=== PATIENT | male | born 1930 | race Caucasian/White ===

== ENCOUNTER 2016-06-10 03:43 | Inpatient (IN) ==
--- NOTE | 2016-06-10 04:16 | Emergency Department Note ---
Disposition Clinical Impression: Atrial fibrillation with RVR, Hypokalemia, Elevated troponin, Pleural effusion , right Acute exacerbation of CHF (congestive heart failure) Qualifiers: Congestive heart failure type: unspecified congestive heart failure type Qualified Code(s): I50.9 - Heart failure, unspecified Disposition: Admitted As Inpatient Condition: Serious Referrals: Unassigned,Provider [Non-Partnered Physician] - Forms: ED Satisfaction Letter Time of Disposition: 05:48 SOB HPI - General Chief Complaint: ED Shortness of Breath/Dyspnea Stated Complaint: LILY Time Seen by Provider: 06/10/16 04:10 Source: patient Limitations: no limitations Nursing Notes Reviewed: Yes Vital Signs Reviewed: Yes - History of Present Illness 85-year-old male with generalized weakness, intermittent chest pain, is now chest pain-free, also has having palpitations, states he does not know if he has had A. fib, per his he may have had A. fib a few years ago and was nonproductive but stopped this due to GI bleeding. Patient denies any current GI bleeds. States that he has felt his heart rate going fast and comes to patient denies abdominal pain, nausea vomiting diarrhea constipation hematuria dysuria. ED essentially complaining of rise weakness Pt Subjective Complaint: shortness of breath Onset (ago): hour(s) Severity: none Improves with: nothing Worsens with: nothing Known history of: congestive heart failure Treatment prior to arrival: none - Related Data Home Medications Medication Instructions Recorded Confirmed Diltiazem HCl [Diltiazem ER] 240 mg PO DAILY 06/10/16 06/10/16 Donepezil [Aricept] 5 mg PO HS 06/10/16 06/10/16 Furosemide [Lasix] 20 mg PO DAILY 06/10/16 06/10/16 Lisinopril [Zestril] 10 mg PO DAILY 06/10/16 06/10/16 Metoprolol [Lopressor] 25 mg PO BID 06/10/16 06/10/16 Omeprazole 20 mg PO BID 06/10/16 06/10/16 Potassium Chloride [K-Tab ER] 20 meq PO DAILY 06/10/16 06/10/16 Allergies Allergy/AdvReac Type Severity Reaction Status Date / Time No Known Allergies Allergy Verified 06/10/16 04:59 Review of Systems: All systems were reviewed with historian and negative except as per below, or as documented in the HPI. Constitutional: Denies: fever, chills, weight changes Eyes: Denies: vision changes, eye pain ENT: Denies: nasal congestion, sore throat CV: Positive for palpitations Denies: chest pain Resp: +cough, dyspnea Denies: cough, dyspnea, wheezes, hemoptysis GI: Denies: abdominal pain, N/V/D/C [place] heme hematochezia, denies melena Neuro: Denies: [place], weakness, sensory changes, gait difficulty Psych: Denies: anxiety, depression All systems ED: reviewed and negative except as stated. Past Medical History - Past Medical History Attestation: Yes The following information was validated with the patient. Source: patient Medical history: Reports: dementia, hyperlipidemia, hypertension - Social History Smoking Status: Former smoker Smokeless Tobacco Status: No Alcohol use: Reports: rarely Drug use: Reports: none Physical Exam Constitutional: Alert female appears mildly in respiratory distress, vital signs tachycardic irregular. HEENT: NCAT, sclera anicteric, PERRLA bilaterally, normal external ears bilaterally, nasal septum nondeviated, average dentition, MMM Neck: normal inspection, neck is supple, trachea midline Resp: Diminished breath sounds bilaterally CV: Irregular rate and rhythm GI: normal inspection, Soft, NTND, BS present Back: normal inspection, no tenderness to palpation Skin: No rashes, skin warm, dry, intact - General Limitations: no limitations General appearance: alert, in no apparent distress Course Course Narrative: Atrial male with what appears to be new onset paroxysmal atrial fibrillation, unclear if there is previous history however given previous EKGs this is likely , patient is not anticoagulated except for on aspirin, we will check lab work, start with IV Lopressor and then 1 L of fluid, reassess patient. - Reevaluation(s) Reevaluation #1: Hospitalist paged Reevaluation #2: Mateusz is the hospitalist who accepted the patient, elevated troponin, hypokalemia replaced, likely demand ischemia secondary to rate, his rates somewhat stable around 90-100 red now will not do an hold diltiazem Time: 06:56 Vital Signs Temperature 99.0 F 06/10/16 03:46 Pulse Rate 113 06/10/16 03:46 Respiratory Rate 22 06/10/16 03:46 Blood Pressure 170/75 06/10/16 03:46 O2 Sat by Pulse Oximetry 93 L 06/10/16 03:46 Temperature 99.0 F 06/10/16 03:46 Pulse Rate 108 06/10/16 06:18 Respiratory Rate 20 06/10/16 06:18 Blood Pressure 146/76 06/10/16 06:18 O2 Sat by Pulse Oximetry 93 L 06/10/16 06:18 Oxygen Delivery Oxygen Delivery Nasal Cannula Shortness of Breath/Dyspnea - [facility] Narrative Medical decision making narrative: 85 male with anemia, hypokalemia, atrial fibrillation, elevated troponin, pleural effusion, admitted for the above complaints, to Dr. Child service - Differential Diagnosis Likely: acute exacerbation of chronic obstructive airways disease, congestive heart failure, pneumonia, pulmonary embolism - Medical Records Medical records reviewed: Yes I reviewed the patient's medical records. - Lab Data Lab results reviewed: Yes I reviewed the patient's lab results. Result diagrams: 06/10/16 04:51 06/10/16 04:51 Lab Results 06/10/16 06/10/16 06/10/16 Range/Units 04:51 04:51 04:51 WBC 8.2 (4.3-11.1) K/mcL RBC 2.50 L (4.19-5.50) M/mcL Hgb 7.9 L (12.9-16.9) g/dL Hct 24.5 L (37.5-50.1) % MCV 98.0 (83.0-100.0) fL MCH 31.6 (28.0-33.3) pg MCHC 32.2 (31.6-35.5) g/dL RDW 14.8 H (11.5-14.5) % Plt Count 145 (140-400) K/mcL MPV 9.9 (9.4-12.4) fL Immature Gran % 0.4 (0-4) % Seg Neutrophils % 86.5 % Lymphocytes % 6.6 % Monocytes % 6.3 % Eosinophils % 0.0 % Basophils % 0.2 % Neutrophils # 7.1 (1.6-8.9) K/mcL Lymphocytes # 0.5 L (0.6-4.6) K/mcL Monocytes # 0.5 (0.0-1.3) K/mcL Eosinophils # 0.0 (0.0-0.6) K/mcL Basophils # 0.0 (0.0-0.2) K/mcL Immature Plt Fraction 4.5 (1.1-6.1) % Sodium 140 (136-145) mEq/L Potassium 2.5 L* (3.5-4.5) mEq/L Chloride 87 L (98-109) mEq/L Carbon Dioxide 40 H* (19-29) mEq/L BUN 20 (8-26) mg/dL Creatinine 1.12 (0.72-1.25) mg/dL Est GFR ( Amer) > 60 (> 60) Est GFR (Non-Af Amer) > 60 (> 60) BUN/Creatinine Ratio 18 (6-26) Glucose 132 H (70-99) mg/dL Calculated Osmolality 294 (280-300) Lactic Acid (0.5-2.2) mmol/L Calcium 9.0 (8.6-10.8) mg/dL Phosphorus 4.3 (2.3-4.7) mg/dL Magnesium 1.9 (1.6-2.6) mg/dL Troponin I 1.30 H* (0-0.03) ng/mL B-Natriuretic Peptide (0-100) pg/mL TSH 1.611 (0.350-4.840) mcIU/mL Stool Occult Blood (Negative) Specimen Rejected Blood Type Antibody Screen 06/10/16 06/10/16 06/10/16 Range/Units 04:51 04:51 05:10 WBC (4.3-11.1) K/mcL RBC (4.19-5.50) M/mcL Hgb (12.9-16.9) g/dL Hct (37.5-50.1) % MCV (83.0-100.0) fL MCH (28.0-33.3) pg MCHC (31.6-35.5) g/dL RDW (11.5-14.5) % Plt Count (140-400) K/mcL MPV (9.4-12.4) fL Immature Gran % (0-4) % Seg Neutrophils % % Lymphocytes % % Monocytes % % Eosinophils % % Basophils % % Neutrophils # (1.6-8.9) K/mcL Lymphocytes # (0.6-4.6) K/mcL Monocytes # (0.0-1.3) K/mcL Eosinophils # (0.0-0.6) K/mcL Basophils # (0.0-0.2) K/mcL Immature Plt Fraction (1.1-6.1) % Sodium (136-145) mEq/L Potassium (3.5-4.5) mEq/L Chloride (98-109) mEq/L Carbon Dioxide (19-29) mEq/L BUN (8-26) mg/dL Creatinine (0.72-1.25) mg/dL Est GFR ( Amer) (> 60) Est GFR (Non-Af Amer) (> 60) BUN/Creatinine Ratio (6-26) Glucose (70-99) mg/dL Calculated Osmolality (280-300) Lactic Acid (0.5-2.2) mmol/L Calcium (8.6-10.8) mg/dL Phosphorus (2.3-4.7) mg/dL Magnesium (1.6-2.6) mg/dL Troponin I (0-0.03) ng/mL B-Natriuretic Peptide 1094 H (0-100) pg/mL TSH (0.350-4.840) mcIU/mL Stool Occult Blood Negative (Negative) Specimen Rejected Contaminated Blood Type Antibody Screen 06/10/16 06/10/16 Range/Units 05:30 05:30 WBC (4.3-11.1) K/mcL RBC (4.19-5.50) M/mcL Hgb (12.9-16.9) g/dL Hct (37.5-50.1) % MCV (83.0-100.0) fL MCH (28.0-33.3) pg MCHC (31.6-35.5) g/dL RDW (11.5-14.5) % Plt Count (140-400) K/mcL MPV (9.4-12.4) fL Immature Gran % (0-4) % Seg Neutrophils % % Lymphocytes % % Monocytes % % Eosinophils % % Basophils % % Neutrophils # (1.6-8.9) K/mcL Lymphocytes # (0.6-4.6) K/mcL Monocytes # (0.0-1.3) K/mcL Eosinophils # (0.0-0.6) K/mcL Basophils # (0.0-0.2) K/mcL Immature Plt Fraction (1.1-6.1) % Sodium (136-145) mEq/L Potassium (3.5-4.5) mEq/L Chloride (98-109) mEq/L Carbon Dioxide (19-29) mEq/L BUN (8-26) mg/dL Creatinine (0.72-1.25) mg/dL Est GFR ( Amer) (> 60) Est GFR (Non-Af Amer) (> 60) BUN/Creatinine Ratio (6-26) Glucose (70-99) mg/dL Calculated Osmolality (280-300) Lactic Acid 1.3 (0.5-2.2) mmol/L Calcium (8.6-10.8) mg/dL Phosphorus (2.3-4.7) mg/dL Magnesium (1.6-2.6) mg/dL Troponin I (0-0.03) ng/mL B-Natriuretic Peptide (0-100) pg/mL TSH (0.350-4.840) mcIU/mL Stool Occult Blood (Negative) Specimen Rejected Blood Type A POSITIVE Antibody Screen NEGATIVE - Radiology Data Radiology results reviewed: Yes I reviewed the patient's radiology results. Chest X-Ray 06/10/16 04:17 IMPRESSION: Right pleural effusion with adjacent atelectasis or pneumonia. D/ / Hung Arias MD / Hung Arias MD Interpreting Provider: Hung Arias MD - EKG Data EKG attestation: Yes I reviewed and interpreted this EKG. EKG shows normal: Reports: sinus rhythm Rate: Reports: tachycardia Rhythm: Reports: A.Fib (Atrial fibrillation heart rate of 90 bpm QRS 109 QTC [address] ) ST segment depression in: Reports: v5, v6 Interpretation: Reports: unchanged when compared to prior tracing (date) ( Release EKG shows atrial fibrillation), nonspecific ST-T wave changes - Core Measures AMI Core Measures Followed: No Measure Exclusions: contraindicated (Hemoglobin 7.9) Critical Care Time Critical Care Time: Yes Total Critical Care Time: 40 Attestation: Critical care performed: Time is exclusive of separately billable procedures. Time includes: direct patient care, patient reassessment, coordination of patient care, interpretation of data (laboratory data, radiology data, and respiratory data), review of patient's medical records, medical consultation and documentation of patient care. Procedures included in critical care time: Procedures excluded from critical care time: Attestation Statement - Attestation Attestation: I, Abel Jacob MD, personally performed a history and physical exam of the patient and discussed their management with the resident. I reviewed the resident's note and agree with the documented findings, medical decision making , and plan of care. 85-year-old male presents to the emergency department by ambulance with a complaint of awakening from sleep this morning with shortness of breath. Patient reports for about the past week he has been a little short of breath in the mornings when he gets up but then is fine the rest of the day. This morning the shortness of breath that woke him from sleep and was much worse than it has been. He denies any history of breathing problems and does not have home oxygen. He denies any chest pain. No cough or fever. There was some mild palpitations. He has a history of atrial fibrillation. On examination patient is a well-developed well-nourished elderly male in no acute distress. He is alert and oriented 3. There is no cyanosis or diaphoresis. Chest is nontender to palpation. Breath sounds are decreased but equal bilaterally with a few bibasilar rales and some scattered expiratory wheezes. Heart is irregularly irregular with a slight tachycardia. Abdomen soft and nontender with normal bowel sounds. EKG shows atrial fibrillation. Some ST segment depression in V3 through V6. Labs reviewed. Significant anemia. Elevated troponin. Hypokalemia. Chest x- ray shows a right pleural effusion with adjacent atelectasis versus pneumonia. The hospitalist, Dr. Child, was consulted and accepted admission of the patient.
[2016-06-10] MEDS ORDERED: *HR* Metoprolol 5 MG/5 ML VIAL IVP ONE (04:17)
[2016-06-10] MEDS ORDERED: methylPREDNISolone 125 MG/2 ML VIAL IVP ONE (04:18)
[2016-06-10] MEDS ORDERED: Ipratropium/Albuterol Neb 3 ML IH ONE (04:18)
[2016-06-10 04:59] LABS: Basophils % 0.2 %; Hematocrit 24.5 % (37.5-50.1); Hemoglobin 7.9 g/dL (12.9-16.9); Immature Granulocytes % 0.4 % (0-4); Immature Platelets 4.5 % (1.1-6.1); Lymphocytes # 0.5 K/mcL (0.6-4.6); Lymphocytes % 6.6 %; Mean Corpuscular HGB Conc 32.2 g/dL (31.6-35.5); Mean Corpuscular Hemoglobin 31.6 pg (28.0-33.3); Mean Platelet Volume 9.9 fL (9.4-12.4); Monocytes # 0.5 K/mcL (0.0-1.3); Monocytes % 6.3 %; Neutrophils # 7.1 K/mcL (1.6-8.9); Platelet Count 145 K/mcL (140-400); Red Cell Distribution Width 14.8 % (11.5-14.5); Segmented Neutrophils % 86.5 %
[2016-06-10] MEDS ORDERED: 0.9 % Sodium Chloride 1,000 ML IV ONE (05:14)
[2016-06-10 05:17] LABS: BUN/Creatinine Ratio 18 (6-26); Blood Urea Nitrogen 20 mg/dL (8-26); Chloride 87 mEq/L (98-109); Glucose 132 mg/dL (70-99); Magnesium 1.9 mg/dL (1.6-2.6); Osmolality,Calculated 294 (280-300); Phosphorous 4.3 mg/dL (2.3-4.7); Sodium 140 mEq/L (136-145); eGFR For African Americans > 60 (> 60); eGFR For Non-African Americans > 60 (> 60)
[2016-06-10 05:19] LABS: Carbon Dioxide 40 mEq/L (19-29); Potassium 2.5 mEq/L (3.5-4.5)
[2016-06-10 06:12] LABS: Thyroid Stimulating Hormone 1.611 mcIU/mL (0.350-4.840)
--- NOTE | 2016-06-10 10:32 | Internal Med History&Physical ---
Date of Encounter: 06/10/16 Time of Encounter: 10:09 Assessment and Plan (1) GI bleed Status: Acute GI Bleed.: NOted that stool occult is negative but there is drop in Hb 13.6 to 7.9. patient on Pradaxa for Afib Plan: - admit as inpatient. - 2 wide bore IV - IV fluids 70cc/hr - IV PPI 40 mg BID - Transfuse 2 PRBC. -CT abdomen pelvis with contrast ( creat 1.12) - GI consult ( spoke with Mr Paris) - Stop pradaxa ( updated PCP and he agrees) -DVT prophylaxis : SCD Medical decision making: This patient has a [id number] risk of worsening GI bleed/cardiac status in spite of being on appropriate medication. Qualifiers: GI bleed type/associated pathology: unspecified gastrointestinal hemorrhage type Qualified Code(s): K92.2 - Gastrointestinal hemorrhage, unspecified (2) Atrial fibrillation with RVR Status: Acute as there is drop in Hb and volume loss: patient has precipitated with RVR will continue symptomatic treatment. if VR is more than 140 then will lissett scottie. (3) Elevated troponin Status: Acute Elevated troponin is likely secondary to RVR will do serial troponin cardiology on board. (4) Hypokalemia Status: Resolved will replace K will check Mg Internal Medicine - H&P: HPI Chief complaint: chest pain Admitted From: Emergency Dept Plans for Post Hospital Care: Home History of present illness: PCP: Dr Anna Whitmore PMH: dementia, hyperlipidemia, hypertension HPI: Patient presented to the emergency room with intermittent chest pain. patient has ongoing chest pain for more than 2 days. he also has passage of bright red stool per rectum for past 2-3 weeks. patient claims that he has episode of wayne too. Noted that patient has advanced dementia and has some episodes of forgetfulness. Spoke with patient's PCP Dr Castillo ( [facility]): patient was prescribed pradaxa and seen PCP a few months back. ER work Up: basic labs show drop of Hb by more than 5 points. elevated troponin , Afib with RVR. severe hypokalemia reason for hospitalization: as above. family history : non contributory. Past Med Surg Social Fam HX - Past Medical History Medical history: dementia, hyperlipidemia, hypertension - Social History Smoking Status: Former smoker Smokeless Tobacco Status: No Alcohol use: rarely Drug use: none Internal Medicine - H&P: Meds Donepezil [Aricept] 5 mg PO HS 06/10/16 [History] Lisinopril [Zestril] 10 mg PO DAILY 06/10/16 [History] Potassium Chloride [K-Tab ER] 20 meq PO DAILY 06/10/16 [History] Albuterol Sulfate [Albuterol Inhaler] 1 puff IH Q4H PRN #5 inhaler 06/14/16 [Rx] Aspirin 81 mg PO DAILY #30 tab.chew 06/14/16 [Rx] Atorvastatin [Lipitor] 20 mg PO HS #30 tablet 06/14/16 [Rx] Budesonide/Formoterol 80/4.5 [Symbicort 80/4.5] 2 puff IH BIDR #5 inhaler 06/14 [Rx] Diltiazem HCl [Diltiazem ER] 240 mg PO DAILY #30 cap.er.deg 06/14/16 [Rx] Furosemide [Lasix] 20 mg PO BID #30 tablet 06/14/16 [Rx] Metoprolol XL (24 HR) Succ [Toprol Xl] 100 mg PO DAILY #30 tab.er.24h 06/14/16 [ Rx] Omeprazole 40 mg PO BID #60 tablet.dr 06/14/16 [Rx] Sucralfate [Carafate] 1 gm PO TID #60 udc 06/14/16 [Rx] Allergies No Known Allergies Allergy (Verified 06/10/16 04:59) All Systems PM: A 10-system review of systems was performed and is negative for pertinent findings except as documented above in the HPI. - Constitutional Constitutional: no chills, no fever(s), no night sweats - EENT Eyes: no change in vision, no discharge, no pain, no photophobia Ears: no ear discharge, no ear pain, no tinnitus Nose, mouth and throat: no dysphagia, no nasal discharge, no neck pain, no sore throat - Cardiovascular Cardiovascular ROS IM: chest pain, diaphoresis, lightheadedness, palpitations, no dyspnea, no syncope - Respiratory Respiratory: no cough, no dyspnea, no wheezing, no excessive phlegm production - Gastrointestinal Gastrointestinal: abdominal pain, change in stool character, hematochezia, melena, no diarrhea, no hematemesis, no nausea, no vomiting - Musculoskeletal Musculoskeletal ROS IM: no numbness, no tingling - Integumentary Integumentary IM: no rash, no unusual bruising - Neurological Neurological ROS: no confusion, no convulsions, no focal weakness, no numbness, no tingling, no tremor(s) - Hematologic/Lymphatic Hematologic/Lymphatic: no easy bruising - Constitutional Vitals: Temp Pulse Resp BP Pulse Ox 98 F 107 16 174/79 96 06/10/16 09:45 06/10/16 09:45 06/10/16 09:45 06/10/16 09:45 06/10/16 09:45 General appearance: Present: A&O X 3, pleasant, no acute distress, answers questions appropriately - Head Head exam: Present: atraumatic, normocephalic - Eye Eye exam: Present: PERRL, conjuntiva pink, sclera anicteric Pupils: Present: PERRL - Neck Neck exam general surgery: Present: supple, trachea midline. Absent: lymphadenopathy - Respiratory Respiratory exam: Present: CTAB. Absent: accessory muscle use, rales, rhonchi, wheezes - Cardiovascular Cardiovascular exam: Present: RRR, +S1, +S2. Absent: diastolic murmur, gallop, rubs, systolic murmur - GI/Abdominal GI/Abdominal exam: Present: normal bowel sounds, soft, no peritoneal signs. Absent: distended, tenderness - Extremities Exam Extremities exam: Present: warm, radial pulses palpable and symetrical. Absent : calf tenderness, cyanotic, pedal edema - Neurological Exam Neurological exam: Present: CN II-XII intact, oriented X3, no focal deficits. Absent: pronater drift, facial droop, speech deficit - Skin Skin exam: Present: dry, intact Internal Med - H&P Results - Labs CBC & Chem 7: 06/14/16 05:09 06/14/16 05:09
[2016-06-10] MEDS ORDERED: *HR* Morphine 2 MG/ML SYRINGE IVP PRN (10:42)
[2016-06-10] MEDS ORDERED: Naloxone 0.4 MG/ML INJ IVP PRN (10:42)
--- NOTE | 2016-06-10 11:10 | Cardiology Consult Note ---
Date of Encounter: 06/10/16 Time of Encounter: 11:00 Assessment and Plan (1) Anemia Current Visit: Yes Status: Acute Per Cardiology: Patient with previous history of GI bleed and had been on Coumadin in the past. Patient reports currently not on Coumadin. He denies any active bleeding or blood loss, however appears to be on Aricept and has history of dementia. Guaiac stool currently negative. Blood transfusion pending per primary service. Hemoglobin down from 13 to 7 in the past 2 months. Suspect anemia during factor to A. fib with RVR and troponin elevation. Further management per primary service. GI consult pending. Qualifiers: Anemia type: unspecified type Qualified Code(s): D64.9 - Anemia, unspecified (2) Atrial fibrillation with RVR Current Visit: Yes Status: Acute Per Cardiology: Document past history of atrial fibrillation area lasting by cardiology in 2012. Not anticoagulated due to history of GI bleed. Presents now with A. fib with RVR currently in the 100s. Average heart rate during hospital stay thus far 127. Patient on home dose of Cardizem CD 240 mg by mouth daily. Will resume his home dose of Lopressor 25 mg by mouth twice a day. Systolic blood pressure currently elevated as well. We'll further titrate medications based on heart rate response. However, suspect afib with improve with blood transfusion. Anticoagulation not appropriate at this time due to acute anemia with suspected GI bleed. Can reevaluate during hospital course. (3) Acute exacerbation of CHF (congestive heart failure) Current Visit: Yes Status: Acute Per Cardiology: History of moderate diastolic dysfunction per previous cardiology office records. Most recent echo February 2013 showed EF preserved 60%,and about other dysfunction, history of bundle branch block. BNP elevated in the 1000's. He appears euvolemic on exam. We'll continue to monitor. Chest x-ray shows no overt heart failure. Can consider diuresis, however concerning for severe hypokalemia right now. Qualifiers: Congestive heart failure type: diastolic Qualified Code(s): I50.33 - Acute on chronic diastolic (congestive) heart failure (4) Elevated troponin Current Visit: Yes Status: Acute Per Cardiology: Troponin elevated at 1.30. Currently chest pain-free. Do not suspect non-STEMI, suspect the main ischemia with significant anemia and A. fib with RVR. However we'll continue to cycle troponins and check echo. No chronic rehabilitation consult this time. Had negative stress test February 2013. (5) Hypokalemia Current Visit: Yes Status: Acute Per Cardiology: Being replaced by primary service. No ventricular arrhythmias noted on telemetry , continue to monitor. Discussion w patient/family: The assessment and plan as outlined above was discussed with the patient who expressed understanding and agreement. All questions were answered. Thank you for involving us in the care of your patient. Please call with any questions. Discussed and reviewed with Dr. Klein. History of Present Illness Consult date: 06/10/16 Requesting physician: Chele Shay Consult reason: troponin, afib Chief complaint: SOB, Trouble sleeping, Dizziness History of present illness: Mr. Figueroa is a 85 year old male with relevant past medical history of hypertension, hyperlipidemia, past nicotine abuse, diastolic heart failure, and atrial fibrillation. Had previously been on Coumadin however reports discontinued due to GI bleeding, and apparent dementia on Aricept. Reports over the past few days worsening shortness of breath at rest and with exertion. Reports difficulty sleeping the past few days due to breathing. He reports he presented to the ER when he developed dizziness and lightheadedness upon standing. He reports he called the squad found the porch until their arrival due to the dizziness. He denies any current active bleeding or blood loss. Denies any chest pain or palpitations. Reports lives at home alone. Past Med Surg Social Fam HX - Past Medical History Attestation: Yes The following information was validated with the patient. Source: patient, old records reviewed Medical history: dementia, hyperlipidemia, hypertension - Social History Smoking Status: Former smoker Smokeless Tobacco Status: No Alcohol use: rarely Drug use: none Medications and Allergies Diltiazem HCl [Diltiazem ER] 240 mg PO DAILY 06/10/16 [History] Donepezil [Aricept] 5 mg PO HS 06/10/16 [History] Furosemide [Lasix] 20 mg PO DAILY 06/10/16 [History] Lisinopril [Zestril] 10 mg PO DAILY 06/10/16 [History] Metoprolol [Lopressor] 25 mg PO BID 06/10/16 [History] Omeprazole 20 mg PO BID 06/10/16 [History] Potassium Chloride [K-Tab ER] 20 meq PO DAILY 06/10/16 [History] Allergies No Known Allergies Allergy (Verified 06/10/16 04:59) All Systems Review: A 10-system review of systems was performed and is negative for pertinent findings except as documented above in the HPI. - Constitutional Constitutional: other (Recent insomnia) - Cardiovascular Cardiovascular: as per HPI, dyspnea at rest, dyspnea on exertion, lightheadedness Physical Examination Vital Signs, Last 4 Hours Temp Pulse Resp BP Pulse Ox 06/10/16 09:45 98 F 107 16 174/79 96 06/10/16 09:28 16 146/77 06/10/16 08:10 105 16 146/77 97 06/10/16 08:09 94 L General: Conversant HEENT: Atraumatic, Normocephaly, Mucus Membranes Moist Neck: No JVD, Normal carotid pulses Cardiac: No Murmur, Other (Irregular irregular) Lungs: Other (Conversational dyspnea noted, scattered rhonchi throughout) Neuro: Alert and responsive, No focal deficits noted Abdomen: Soft, Non-Tender Skin: No rashes noted on visualized skin Musculoskeletal: No Chest Wall Tenderness Extremities: No Edema, Normal Pulses Results 06/10/16 12:48 06/10/16 12:48 Laboratory Tests 05/01/16 05/01/16 06/10/16 09:20 09:20 04:51 Hgb 13.6 7.9 L Hct 40.1 24.5 L Potassium 4.6 H Troponin I B-Natriuretic Peptide Stool Occult Blood 06/10/16 06/10/16 06/10/16 04:51 04:51 04:51 Hgb Hct Potassium 2.5 L* Troponin I 1.30 H* B-Natriuretic Peptide 1094 H Stool Occult Blood 06/10/16 06/10/16 06/10/16 05:10 12:48 12:48 Hgb 7.6 L Hct 23.9 L Potassium 2.8 L Troponin I B-Natriuretic Peptide Stool Occult Blood Negative ITS Impressions Chest X-Ray 06/10/16 04:17 IMPRESSION: Right pleural effusion with adjacent atelectasis or pneumonia. D/ / Hung Arias MD / Hung Arias MD Interpreting Provider: Hung Arias MD Abdomen/Pelvis CT 06/10/16 10:37 IMPRESSION: Mild injection of the fat surrounding the pancreatic head, descending duodenum, and gallbladder. Appearance is nonspecific but could be due to early cholecystitis, duodenitis or pancreatitis Cirrhosis Small bilateral pleural effusions with small amount of free fluid in pelvis, compatible with fluid overload D/ / Tanmay Ayon MD / Tanmay Ayon MD Interpreting Provider: Tanmay Ayon MD Intake & Output 06/07/16 06/08/16 06/09/16 06/10/16 23:59 23:59 23:59 23:59 Intake Total 400 / 400 Output Total 100 / 100 Balance 300 / 300 Weight 79.7 kg Active Medications Diltiazem HCl (Cardizem Cd) 240 mg PO DAILY BRIA Stop: 12/11/16 09:01 Donepezil HCl (Aricept) 5 mg PO HS [facility] Stop: 12/10/16 21:01 Sodium Chloride (0.9 % Sodium Chloride) 1,000 mls @ 70 mls/hr IVC .[id number] BRIA Stop: 12/10/16 10:46 Last Admin: 06/10/16 12:00 Dose: 70 mls/hr Morphine Sulfate (Morphine Sulfate) 2 mg IVP Q6HR PRN PRN Reason: Severe Pain (7-10) Stop: 12/10/16 10:43 Naloxone HCl (Narcan) 0.4 mg IVP Q2MIN PRN PRN Reason: Opioid Reversal Stop: 12/10/16 10:43 Pantoprazole Sodium (Protonix) 40 mg IVP Q12HR BRIA Stop: 12/10/16 18:01 - Imaging and Cardiology Chest Xray: report reviewed Stress Test: report reviewed Echo: report reviewed - EKG Interpretation EKG results cardiology: other (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
[2016-06-10] MEDS: 0.9 % Sodium Chloride 1,000 ML IVC SCH (12:00)
[2016-06-10 13:01] LABS: Hematocrit 23.9 % (37.5-50.1); Hemoglobin 7.6 g/dL (12.9-16.9); Immature Granulocytes % 0.3 % (0-4); Lymphocytes # 0.1 K/mcL (0.6-4.6); Lymphocytes % 2.1 %; Mean Corpuscular HGB Conc 31.8 g/dL (31.6-35.5); Mean Corpuscular Hemoglobin 31.7 pg (28.0-33.3); Mean Corpuscular Volume 99.6 fL (83.0-100.0); Mean Platelet Volume 9.7 fL (9.4-12.4); Monocytes # 0.1 K/mcL (0.0-1.3); Monocytes % 0.9 %; Neutrophils # 6.3 K/mcL (1.6-8.9); Platelet Count 113 K/mcL (140-400); Segmented Neutrophils % 96.7 %
[2016-06-10 13:10] LABS: BUN/Creatinine Ratio 21 (6-26); Blood Urea Nitrogen 18 mg/dL (8-26); Calcium 7.5 mg/dL (8.6-10.8); Carbon Dioxide 35 mEq/L (19-29); Chloride 96 mEq/L (98-109); Glucose 160 mg/dL (70-99); Osmolality,Calculated 293 (280-300); Potassium 2.8 mEq/L (3.5-4.5); Sodium 139 mEq/L (136-145); eGFR For African Americans > 60 (> 60); eGFR For Non-African Americans > 60 (> 60)
[2016-06-10] MEDS ORDERED: 0.9 % Sodium Chloride 250 ML ONE (13:15)
[2016-06-10 13:24] LABS: Platelet Estimate Decreased (Normal)
[2016-06-10 13:25] LABS: Anisocytosis 1+ (Not Present); Polychromasia 1+ (Not Present)
--- NOTE | 2016-06-10 17:09 | Electrocardiograph Report ---
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
--- NOTE | 2016-06-10 17:12 | Electrocardiograph Report ---
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
[2016-06-10] MEDS ORDERED: Pantoprazole 40 MG VIAL IVP SCH (18:00)
[2016-06-10] MEDS ORDERED: *HR* FentaNYL (PF) 100 MCG/2 ML VIAL ONE (20:29)
[2016-06-10] MEDS ORDERED: *HR* Midazolam HCl 5 MG/5 ML VIAL IVP ONE (20:29)
[2016-06-10] MEDS ORDERED: Tetracaine/Benzocaine/Butamben 200MG/SPRAY (100SPY/BOT) MM ONE (20:41)
[2016-06-10] MEDS ORDERED: Simethicone 40 MG/0.6 ML MLS IR ONE (20:41)
[2016-06-10] MEDS: *HR* Midazolam HCl 5 MG/5 ML VIAL IVP PRN ×2 (20:56→21:03)
[2016-06-10] MEDS: *HR* FentaNYL (PF) 100 MCG/2 ML VIAL IVP PRN ×2 (20:56→21:03)
[2016-06-10 22:29] LABS: Hematocrit 27.9 % (37.5-50.1); Immature Granulocytes % 0.3 % (0-4); Lymphocytes # 0.2 K/mcL (0.6-4.6); Lymphocytes % 2.4 %; Mean Corpuscular HGB Conc 33.3 g/dL (31.6-35.5); Mean Corpuscular Hemoglobin 32.1 pg (28.0-33.3); Mean Corpuscular Volume 96.2 fL (83.0-100.0); Mean Platelet Volume 10.5 fL (9.4-12.4); Monocytes # 0.2 K/mcL (0.0-1.3); Monocytes % 2.5 %; Neutrophils # 6.4 K/mcL (1.6-8.9); Platelet Count 126 K/mcL (140-400); Red Cell Distribution Width 15.6 % (11.5-14.5); Segmented Neutrophils % 94.8 %
[2016-06-10] MEDS: Pantoprazole 40 MG in 0.9 % Sodium Chloride Mini Bag 100 ML IV SCH (22:30)
[2016-06-10 22:34] LABS: Hemoglobin 9.3 g/dL (12.9-16.9)
[2016-06-10 23:05] LABS: Platelet Estimate Normal (Normal)
[2016-06-11] MEDS: Pantoprazole 40 MG in 0.9 % Sodium Chloride Mini Bag 100 ML IV SCH (04:07)
[2016-06-11 05:58] LABS: Hematocrit 28.4 % (37.5-50.1); Hemoglobin 9.7 g/dL (12.9-16.9); Immature Granulocytes % 0.6 % (0-4); Lymphocytes # 0.2 K/mcL (0.6-4.6); Lymphocytes % 2.6 %; Mean Corpuscular HGB Conc 34.2 g/dL (31.6-35.5); Mean Corpuscular Hemoglobin 33.4 pg (28.0-33.3); Mean Corpuscular Volume 97.9 fL (83.0-100.0); Mean Platelet Volume 10.7 fL (9.4-12.4); Monocytes # 0.3 K/mcL (0.0-1.3); Monocytes % 3.9 %; Neutrophils # 6.7 K/mcL (1.6-8.9); Platelet Count 133 K/mcL (140-400); Red Cell Distribution Width 15.7 % (11.5-14.5); Segmented Neutrophils % 92.9 %
[2016-06-11 06:15] LABS: Alanine Aminotransferase 9 Units/L (0-55); Albumin 3.5 g/dL (3.5-5.0); Albumin/Globulin Ratio 1.2 (1.1-2.2); Alkaline Phosphatase 39 Units/L (38-126); Aspartate Amino Transferase 30 Units/L (5-34); BUN/Creatinine Ratio 23 (6-26); Bilirubin,Total 0.9 mg/dL (0.2-1.2); Blood Urea Nitrogen 27 mg/dL (8-26); Calcium 8.1 mg/dL (8.6-10.8); Carbon Dioxide 33 mEq/L (19-29); Chloride 94 mEq/L (98-109); Glucose 140 mg/dL (70-99); Magnesium 1.8 mg/dL (1.6-2.6); Osmolality,Calculated 297 (280-300); Phosphorous 4.9 mg/dL (2.3-4.7); Potassium 3.3 mEq/L (3.5-4.5); Sodium 140 mEq/L (136-145); Total Protein 6.5 g/dL (6.0-8.3); eGFR For African Americans > 60 (> 60); eGFR For Non-African Americans > 60 (> 60)
[2016-06-11 06:20] LABS: Platelet Estimate Normal (Normal)
[2016-06-11] MEDS ORDERED: Perflutren Lipid Microsphere 1.3 ML in 0.9 % Sodium Chloride 8.7 ML IVP ONE (08:05)
--- NOTE | 2016-06-11 08:17 | Cardiology Progress Note ---
Date of Encounter: 06/11/16 Time of Encounter: 08:15 Assessment and Plan (1) Anemia Current Visit: Yes Status: Acute Per Cardiology: Patient with previous history of GI bleed and had been on AC in the past. He denies any active bleeding or blood loss, however appears to be on Aricept and has history of dementia. Guaiac stool currently negative. S/p 2 units PRBCs. Hemoglobin down from 13 to 7 in the past 2 months. Suspect anemia during factor to A. fib with RVR and troponin elevation. Further management per primary service. GI consult pending. Qualifiers: Anemia type: unspecified type Qualified Code(s): D64.9 - Anemia, unspecified (2) Atrial fibrillation with RVR Current Visit: Yes Status: Acute Per Cardiology: Document past history of atrial fibrillation area lasting by cardiology in 2012. Not anticoagulated due to history of GI bleed. Presents now with A. fib with RVR currently in the 100s. Average heart rate past 24 hrs = 111. Patient on home dose of Cardizem CD 240 mg by mouth daily and Lopressor 25 mg by mouth twice a day-- will increase to 50mg PO BID. SBP 150's. Echo pending. Anticoagulation not appropriate at this time due to acute anemia with suspected GI bleed. Can reevaluate during hospital course. (3) Acute exacerbation of CHF (congestive heart failure) Current Visit: Yes Status: Acute Per Cardiology: History of moderate diastolic dysfunction per previous cardiology office records. Most recent echo February 2013 showed EF preserved 60%,and about other dysfunction, history of bundle branch block. BNP elevated in the 1000's. Euvolemic on exam. We'll continue to monitor. Chest x-ray shows no overt heart failure. Qualifiers: Congestive heart failure type: diastolic Qualified Code(s): I50.33 - Acute on chronic diastolic (congestive) heart failure (4) Elevated troponin Current Visit: Yes Status: Acute Per Cardiology: Peak troponin at 1.30, downward trending. Currently chest pain-free. Do not suspect non-STEMI, suspect the main ischemia with significant anemia and A. fib with RVR. No cardiac rehabilitation consult this time. Had negative stress test February 2013. Echo pending when rate controlled. (5) Hypokalemia Current Visit: Yes Status: Acute Per Cardiology: Has been replaced, however remains hypokalemic. Will place on daily supplement and repeat potassium later today. No ventricular arrhythmias noted on telemetry , continue to monitor. Discussion w patient/family: The assessment and plan as outlined above was discussed with the patient who expressed understanding and agreement. All questions were answered. Thank you for involving us in the care of your patient. Please call with any questions. Discussed and reviewed with Dr. Klein. Subjective Principal diagnosis: Anemia, Elevated Trop Interval history: Patient denies any chest pain, shortness of breath, or palpitations. Continues denying any active bleeding or blood loss. Concern with lack of food this morning. Objective Vital Signs, Last 4 Hours Temp Pulse Resp BP Pulse Ox 06/11/16 07:13 98.6 F 144 17 158/89 97 06/11/16 05:02 79.7 F L 92 16 146/88 99 General: Conversant, No Apparent Distress HEENT: Atraumatic, Normocephaly Cardiac: No Murmur, Other (Irregularly irregular) Lungs: Other (diminished to bases) Neuro: Alert and responsive, No focal deficits noted Extremities: No Edema Results 06/11/16 04:46 06/11/16 04:46 Lab Results Laboratory Tests 06/10/16 06/10/16 06/10/16 04:51 12:48 22:00 Hgb Hct Potassium Troponin I 1.30 H* 1.08 H* 1.27 H* 06/11/16 06/11/16 06/11/16 04:46 04:46 04:46 Hgb 9.7 L Hct 28.4 L Potassium 3.3 L Troponin I 1.24 H* Impressions Abdomen/Pelvis CT 06/10/16 10:37 IMPRESSION: Mild injection of the fat surrounding the pancreatic head, descending duodenum, and gallbladder. Appearance is nonspecific but could be due to early cholecystitis, duodenitis or pancreatitis Cirrhosis Small bilateral pleural effusions with small amount of free fluid in pelvis, compatible with fluid overload D/ / Tanmay Ayon MD / Tanmay Ayon MD Interpreting Provider: Tanmay Ayon MD Active Medications Aspirin (Aspirin) 81 mg PO DAILY BRIA Stop: 12/11/16 09:01 Diltiazem HCl (Cardizem Cd) 240 mg PO DAILY BRIA Stop: 12/11/16 09:01 Donepezil HCl (Aricept) 5 mg PO HS BRIA Stop: 12/10/16 21:01 Last Admin: 06/10/16 22:30 Dose: 5 mg Sodium Chloride (0.9 % Sodium Chloride) 1,000 mls @ 70 mls/hr IVC .[id number] BRIA Stop: 12/10/16 10:46 Last Admin: 06/10/16 12:00 Dose: 70 mls/hr Pantoprazole Sodium 40 mg/ (Sodium Chloride) 100 mls @ 20 mls/hr IV .Q5H BRIA Stop: 12/10/16 21:16 Last Admin: 06/11/16 04:07 Dose: 20 mls/hr Metoprolol Tartrate (Lopressor) 25 mg PO BID [facility] Stop: 12/10/16 13:46 Last Admin: 06/10/16 22:30 Dose: 25 mg Morphine Sulfate (Morphine Sulfate) 2 mg IVP Q6HR PRN PRN Reason: Severe Pain (7-10) Stop: 12/10/16 10:43 Naloxone HCl (Narcan) 0.4 mg IVP Q2MIN PRN PRN Reason: Opioid Reversal Stop: 12/10/16 10:43 Pantoprazole Sodium (Protonix) 40 mg IVP ONCE ONE Stop: 06/11/16 21:20 - Imaging and Cardiology Echo: pending - EKG Interpretation EKG results cardiology: other (Four-hour time she reviewed with average heart rate 111, remains atrial fibrillation, PVCs noted, no ventricular arrhythmias) Consult Discharge Plan - Plan Referrals: Osito Castillo Jr, MD [Primary Care Provider] - 06/24/16 1:30 pm
[2016-06-11] MEDS ORDERED: Diltiazem CD (24hr) 240 MG CAPSULE PO SCH (09:00)
[2016-06-11 09:45] LABS: INR 1.2
[2016-06-11] MEDS: 0.9 % Sodium Chloride 1,000 ML IVC SCH (10:34)
[2016-06-11] MEDS: Aspirin 81 MG TAB.CHEW PO SCH (10:34)
--- NOTE | 2016-06-11 10:47 | Internal Med Progress Note ---
Date of Encounter: 06/11/16 Time of Encounter: 10:45 - Assessment and plan (1) Atrial fibrillation with RVR Current Visit: Yes Status: Acute Assessment and plan: Pt has not received his morning dosing of Cardizem and Metoprolol will closely monitor HR after patient receives morning his morning meds GI bleed secondary anticoagulation (Pradaxa), holding at this time Given GI bleed, patient not a candidate for alf anticoagulation Cardiology consultation appreciated. (2) Anemia Current Visit: Yes Status: Acute Assessment and plan: Acute blood loss anemia secondary to GI bleed S/P EGD, EGD shows large duodenal bulb ulcer with extension into pyloric channel , Normal mucosa was found in the antrum, Biopsies taken On protonic drip as per GI recommendations, to continue drip for 3 days Will start clear liquid diet and advance as tolerated Qualifiers: Anemia type: unspecified type Qualified Code(s): D64.9 - Anemia, unspecified (3) GI bleed Current Visit: Yes Status: Acute Assessment and plan: plan as listed above Qualifiers: GI bleed type/associated pathology: unspecified gastrointestinal hemorrhage type Qualified Code(s): K92.2 - Gastrointestinal hemorrhage, unspecified (4) Hypertension Current Visit: Yes Status: Acute Assessment and plan: continue home medications Qualifiers: Hypertension type: essential hypertension Qualified Code(s): I10 - Essential (primary) hypertension (5) Dyspnea Current Visit: Yes Status: Acute Assessment and plan: Pt states he had difficulty breathing prior to his hospitalization, likely secondary to underlying cardiac etiology and history of CHF will continue home dose of Lasix continue O2 supplementation as needed monitor O2 saturation Qualifiers: Dyspnea type: shortness of breath Qualified Code(s): R06.02 - Shortness of breath (6) Elevated troponin Current Visit: Yes Status: Acute Assessment and plan: Likely secondary to Aflutter with RVR no chest pain reported at this time (7) DVT prophylaxis Current Visit: Yes Status: Acute (8) Thrombocytopenia Current Visit: Yes Status: Acute Assessment and plan: Thrombocytopenia 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 Possible biliary sludge with no evidence of cholelithiasis or acute cholecystitis. No biliary obstruction. Will continue to monitor (9) Hypokalemia Current Visit: Yes Status: Acute Assessment and plan: K supplemented will continue to monitor electrolytes and replace as needed - Subjective Interval history: Patient seen and examined at bedside. Resting comfortably in bed, states he was brought to the ER for evaluation of shortness of breath and his breathing at this time is better. He is saturating well on nasal cannula. Denies any episodes of bleeding since hospitalization. - Constitutional Vitals: Temp Pulse Resp BP Pulse Ox 98.6 F 99 17 158/89 97 06/11/16 07:13 06/11/16 09:35 06/11/16 07:13 06/11/16 07:13 06/11/16 07:13 General appearance: Present: A&O X 3, pleasant, no acute distress, obese, answers questions appropriately - Head Head exam: Present: atraumatic, normocephalic - Eye Eye exam: Present: conjuntiva pink, sclera anicteric - Respiratory Respiratory exam: Present: CTAB. Absent: respiratory distress, wheezes - Cardiovascular Cardiovascular exam: Present: irregular rhythm, +S1, +S2, tachycardia - GI/Abdominal GI/Abdominal exam: Present: normal bowel sounds, soft. Absent: distended, tenderness - Extremities Exam Extremities exam: Present: warm, radial pulses palpable and symetrical. Absent : calf tenderness, pedal edema, tenderness - Neurological Exam Neurological exam: Present: alert, oriented X3 - Psychiatric Psychiatric exam: Present: normal affect, normal mood Internal Medicine: Result - Labs CBC & Chem 7: 06/11/16 04:46 06/11/16 04:46 Labs: Short CBC 06/10/16 06/11/16 Range/Units 22:00 04:46 WBC 6.7 7.2 (4.3-11.1) K/mcL Hgb 9.3 L D 9.7 L (12.9-16.9) g/dL Hct 27.9 L 28.4 L (37.5-50.1) % Plt Count 126 L 133 L (140-400) K/mcL Neutrophils # 6.4 6.7 (1.6-8.9) K/mcL BMP 06/11/16 04:46 Sodium 140 Potassium 3.3 L Chloride 94 L Carbon Dioxide 33 H BUN 27 H Creatinine 1.16 Glucose 140 H Calcium 8.1 L Cardiac Enzymes 06/10/16 06/11/16 Range/Units 22:00 04:46 Troponin I 1.27 H* 1.24 H* (0-0.03) ng/mL Liver Function 06/11/16 Range/Units 04:46 Total Bilirubin 0.9 (0.2-1.2) mg/dL AST 30 (5-34) Units/L ALT 9 (0-55) Units/L Alkaline Phosphatase 39 (38-126) Units/L Albumin 3.5 (3.5-5.0) g/dL - ABG Interpretation ABG results: PT/INR, D-dimer PT 13.0 Seconds (9.4-12.1) H 06/11/16 09:30 - Impressions Impressions Liver Ultrasound 06/11/16 10:00 IMPRESSION: 1. Findings consistent with cirrhosis with no evidence of hepatic malignancy. 2. Possible biliary sludge with no evidence of cholelithiasis or acute cholecystitis. No biliary obstruction. 3. No ascites. The portal vein is patent. 4. Right kidney parenchymal echogenic changes which may relate to medical renal disease. D/ / Dariel Olvera MD / Dairel Olvera MD Interpreting Provider: Dariel Olvera MD Consult Discharge Plan - Plan Referrals: Osito Castillo Jr, MD [Primary Care Provider] - 06/24/16 1:30 pm
--- NOTE | 2016-06-11 11:51 | Gastroenterology Consult Note ---
<Javier Paris Abilio - Last Filed: 06/11/16 11:49> Date of Encounter: 06/11/16 Time of Encounter: 10:35 - Assessment and plan (1) Anemia Current Visit: Yes Status: Acute Assessment and plan: Hgb 13.6 on 04/30/2016 Hgb 7.9 on admission. Secondary to GI bleed. Continue to monitor CBC and transfuse PRBC as needed. Qualifiers: Anemia type: unspecified type Qualified Code(s): D64.9 - Anemia, unspecified (2) GI bleed Current Visit: Yes Status: Acute Assessment and plan: EGD completed yesterday showed a very large duodenal bulb ulcer with extension to the pyloric channel. Continue PPI drip for 72 hours and start Carafate 3 times a day. On discharge continue twice a day oral PPI and 3 times a day Carafate. Continue to hold anticoagulation at this time. Qualifiers: GI bleed type/associated pathology: unspecified gastrointestinal hemorrhage type Qualified Code(s): K92.2 - Gastrointestinal hemorrhage, unspecified (3) Cirrhosis Current Visit: Yes Status: Acute Assessment and plan: Pt with history of alcohol abuse. MELD 10, Child-Ken class A, DF 12.4. Liver US and remaining liver workup pending. Qualifiers: Hepatic cirrhosis type: alcoholic cirrhosis Qualified Code(s): K70.30 - Alcoholic cirrhosis of liver without ascites - Time Spent With Patient Total time spent is greater than 50% in coordination of care (as documented) at patient's floor/unit and/or counseling patient: GI History of Present Illness - Data of Consult Patient: new to practice Consult date: 06/11/16 Requesting Physician: Paola Ferrer MD - Consult Narrative Reason for consult: GI Bleed History of present illness: Mr. Figueroa is a 85 year old male with PMHx of dementia, HLD, HTN, Afib, diastolic heart failure who presented to the ED with intermittent chest pain that started 2 days before admission. He reported BRBPR for the past 2-3 weeks and melena as well. He had previously been on Coumadin which was discontinued due to GI bleeding. He denies any active bleeding or blood loss. FOBT was negative. Hgb 13.6 on 05/01/16 and was 7.9 on admission, this AM Hgb 9.7 after 2 units PRBC. Procedures: Capsule endoscopy 05/04/2013 unremarkable small bowel capsule study. Colonoscopy 03/16/2013 Dr. Castillo diverticulosis noted. EGD 03/16/2013 Dr. Castillo chronic gastritis. NSAIDs: None Anticoagulation: None Past Med Surg Social Fam HX - Past Medical History Medical history: dementia, hyperlipidemia, hypertension - Social History Smoking Status: Former smoker Smokeless Tobacco Status: No Alcohol use: rarely Drug use: none - Gastrointestinal Gastrointestinal: Present: as per HPI - Constitutional Constitutional: as per HPI - EENT Eyes: as per HPI Ears: Present: as per HPI Nose, mouth and throat: Present: as per HPI - Cardiovascular Cardiovascular ROS: Present: as per HPI - Respiratory Respiratory IM: Present: as per HPI - Genitourinary Genitourinary: Absent: change in color, Urinary frequency - Neurological ROS Neurological GI: Present: as per HPI - Hematologic/Lymphatic Hematologic/Lymphatic pediatric: Present: as per HPI - Musculoskeletal Musculoskeletal ROS GI: Present: as per HPI - Integumentary Integumentary GI: Present: as per HPI - Psychiatric ROS Psychiatric GI: Present: as per HPI - Endocrine Endocrine IM: Present: as per HPI - Constitutional Vitals: Temp Pulse Resp BP Pulse Ox 98.8 F 94 18 144/82 97 06/11/16 11:28 06/11/16 11:28 06/11/16 11:28 06/11/16 11:28 06/11/16 11:28 General appearance: Present: cooperative, A&O X 3, no acute distress, answers questions appropriately - Head Head exam: Present: atraumatic, normocephalic - Eye Eye exam: Present: normal appearance, sclera anicteric - ENT ENT exam: Present: mucous membranes moist - Neck Neck exam general surgery: Present: normal inspection, trachea midline - Respiratory Respiratory exam: Present: CTAB. Absent: rales, rhonchi - Cardiovascular Cardiovascular exam: Present: irregular rhythm - GI/Abdominal GI/Abdominal exam: Present: soft, no peritoneal signs. Absent: distended, firm , guarding, tenderness - Rectal Rectal exam: Present: deferred - Extremities Exam Extremities exam: Present: warm - Neurological Exam Neurological exam: Present: no focal deficits - Psychiatric Psychiatric exam: Present: normal affect, normal mood - Skin Skin exam: Present: dry, intact, normal color, warm Results - Labs CBC & Chem 7: 06/11/16 04:46 06/11/16 04:46 Labs: Last Result Calcium 8.1 mg/dL (8.6-10.8) L 06/11/16 04:46 Ferritin 119 ng/ml (22-275) 06/11/16 09:30 Troponin I 1.24 ng/mL (0-0.03) H* 06/11/16 04:46 Stool Occult Blood Negative (Negative) 06/10/16 05:10 Entire Visit Hgb 9.7 g/dL (12.9-16.9) L 06/11/16 04:46 Hct 28.4 % (37.5-50.1) L 06/11/16 04:46 PT 13.0 Seconds (9.4-12.1) H 06/11/16 09:30 Ferritin 119 ng/ml (22-275) 06/11/16 09:30 Total Bilirubin 0.9 mg/dL (0.2-1.2) 06/11/16 04:46 AST 30 Units/L (5-34) 06/11/16 04:46 ALT 9 Units/L (0-55) 06/11/16 04:46 - ABG ABG results: PT/INR, D-dimer PT 13.0 Seconds (9.4-12.1) H 06/11/16 09:30 - Impressions Impressions Liver Ultrasound 06/11/16 10:00 IMPRESSION: 1. Findings consistent with cirrhosis with no evidence of hepatic malignancy. 2. Possible biliary sludge with no evidence of cholelithiasis or acute cholecystitis. No biliary obstruction. 3. No ascites. The portal vein is patent. 4. Right kidney parenchymal echogenic changes which may relate to medical renal disease. D/ / 06/11/2016 10:47:58 Dariel Olvera MD / Karen Noel Interpreting Provider: Dariel Olvera MD Consult Discharge Plan - Plan Referrals: Osito Castillo Jr, MD [Primary Care Provider] - 06/24/16 1:30 pm <Ankita Blum - Last Filed: 06/11/16 17:21> Date of Encounter: 06/11/16 Time of Encounter: 14:00 - Time Spent With Patient Total time spent is greater than 50% in coordination of care (as documented) at patient's floor/unit and/or counseling patient: GI History of Present Illness - Data of Consult Requesting Physician: Paola Ferrer MD - Consult Narrative History of present illness: Mr. Figueroa is a 85 year old male - Constitutional Vitals: Temp Pulse Resp BP Pulse Ox 97.8 F 74 24 129/83 99 06/11/16 15:24 06/11/16 15:24 06/11/16 15:24 06/11/16 15:24 06/11/16 15:24 Results - Labs CBC & Chem 7: 06/11/16 04:46 06/11/16 13:48 Labs: Last Result Calcium 8.1 mg/dL (8.6-10.8) L 06/11/16 04:46 Ferritin 119 ng/ml (22-275) 06/11/16 09:30 Troponin I 1.24 ng/mL (0-0.03) H* 06/11/16 04:46 Stool Occult Blood Negative (Negative) 06/10/16 05:10 Entire Visit Hgb 9.7 g/dL (12.9-16.9) L 06/11/16 04:46 Hct 28.4 % (37.5-50.1) L 06/11/16 04:46 PT 13.0 Seconds (9.4-12.1) H 06/11/16 09:30 Ferritin 119 ng/ml (22-275) 06/11/16 09:30 Total Bilirubin 0.9 mg/dL (0.2-1.2) 06/11/16 04:46 AST 30 Units/L (5-34) 06/11/16 04:46 ALT 9 Units/L (0-55) 06/11/16 04:46 - ABG ABG results: PT/INR, D-dimer PT 13.0 Seconds (9.4-12.1) H 06/11/16 09:30 - Impressions Impressions Liver Ultrasound 06/11/16 10:00 IMPRESSION: 1. Findings consistent with cirrhosis with no evidence of hepatic malignancy. 2. Possible biliary sludge with no evidence of cholelithiasis or acute cholecystitis. No biliary obstruction. 3. No ascites. The portal vein is patent. 4. Right kidney parenchymal echogenic changes which may relate to medical renal disease. D/ / 06/11/2016 10:47:58 Dariel Olvera MD / Karen Noel Interpreting Provider: Dariel Olvera MD - Attending Attestation I examined this patient and my medical decision-making was reviewed with the GARBAGE PICK UP MAN/PA/Advanced Practice Nurse/Resident Physician. I agree with the documented findings, disposition and treatment plan as described except to the extent set forth below. Pt with very large duodenal bulb ulcer, no anticoagulation until the ulcer heals
[2016-06-11] MEDS: Pantoprazole 40 MG in 0.9 % Sodium Chloride Mini Bag 100 ML IVPB SCH ×2 (12:04→17:38)
--- NOTE | 2016-06-11 12:26 | ECHO - Doppler Report ---
Echo with Saline and Imaging Enhancement Agent Name: Kaveh Figueroa Date of Study: 06/11/2016 Date: 1930 Ht: 69.0 in Medical Record#: [id number] Age: 85 Wt: 179.0 lb Gender: Male BSA: 1.97 Order #: [id number] Location: [facility] Room #: 2N04 Reading Physician: Peggy Bower DO Senior Designer/Art Director: Faustino Diamond RDCS Ordering Physician: Osito Pascual CNP Primary Physician: Osito Castillo MD Indications: Elevated troponin Impressions: LVEF 30-35%. Moderately severe global and regional LV systolic dysfunction. RV is normal in size with mild reduction in function. Aortic valve is not well visualized but appears at least moderately calcified. Doppler evaluation suggests low flow-low gradient aortic stenosis (PV 1.76m/s, MG 6 mmHg, DI 0.38, BLAKE 1.2cm2). Mild mitral regurgitation. Moderate tricuspid regurgitation. Estimated RVSP was 60 mmHg. The IVC is dilated. Severe pulmonary hypertension. There is no evidence of a PFO with agitated saline contrast. Left Ventricular Wall Motion: Rest Echo Findings The apex, apical inferior, apical anterior, apical septal, apical lateral and mid anterior septal mo were hypokinetic. All other wall segments showed normal motion. Findings: Study Quality * Technically adequate exam. ECG Findings * Atrial fibrillation. Left Ventricle * Indeterminate diastolic function. * LVEF 30-35%. * LV is not dilated. Mitral Valve * No mitral stenosis. * Mild-moderate mitral annular calcification * Mild mitral regurgitation. * Mildly calcified mitral valve leaflets. Aortic Valve * No aortic regurgitation. * Moderately calcified aortic valve leaflets. * Aortic valve not well visualized. * Moderate aortic stenosis by DI and BLAKE. Low flow-low gradient aortic stenosis. Tricuspid Valve * Moderate tricuspid regurgitation. * Normal tricuspid valve structure. * Estimated RA pressure is 15 mmHg. * Estimated RVSP is 60 mmHg. * Severe pulmonary hypertension. Pulmonic Valve * Pulmonic valve is not well visualized. * No pulmonic stenosis. * No pulmonic regurgitation. Pulmonary Artery * Pulmonary artery not well visualized. Left Atrium * Severely dilated left atrium. Right Atrium * Severely dilated right atrium. Interatrial Septum * No evidence of PFO by color Doppler. * No evidence of PFO with agitated saline contrast. IVC * The IVC is dilated. * < 50% respiratory change. Pericardium * There is no pericardial effusion present. Aorta * Normally sized aortic root. Right Ventricle * Normal RV size with mild reduction in function. History Hypertension Family History of CAD 02/15/13 a Previous Echo was performed. Contrast: Agitated saline 20 ml. Definity 1.3 ml in 8.7 ml of saline 2 ml. Measurements: BP: 146/ 88 2D Normal Values RVIDd: 3.03 cm <2.7 cm IVSd: .85 cm 0.6 - 1.0 cm LVIDd: 5.12 cm 3.7 - 5.6 cm LVPWd: .95 cm 0.6 - 1.1 cm LVIDs: 4.37 cm 1.5 - 3.6 cm AO: 3.00 cm < 4.0 cm LA: 4.30 cm 2.0 - 4.0cm %FS: 14.60 cm >25 % LVOT Diam: 2.00 cm LA volume: 88 Mitral Valve Peak E:1.38 m/sec Peak E' Lat Ambrose:12.6 cm/s Peak E' Med Ambrose:6.53 cm/s E/E' Lat Ratio:11 E/E' Med Ratio:21.1 LVOT Peak Ambrose:.74 m/sec Mean Ambrose:.42 m/sec Peak Grad:2.00 mmHg Mean Grad:1.00 mmHg Aortic Valve Peak Ambrose:1.71 m/sec Mean Ambrose:1.07 m/sec Peak Grad:12.00 mmHg Mean Grad:5.40 mmHg Valve Area:1.13 cm2 Tricuspid Valve TV Regurg Peak Grad: 45.00mmHg TV Regurg Peak Ambrose: 3.36m/sec Updated by Peggy Bower on 06/11/2016 12:21:03 PM electronically signed on 06/11/2016 12:22:50 PM with status of Final Wall Motion Silva: 1=Normal, 2=Hypokinesis, 3=Akinesis, 4=Dyskinesis, 5=Aneurysmal, 6=Hyperkinetic, X=Not Visualized (Blank)=Missing
--- NOTE | 2016-06-11 12:34 | Event Note ---
Date of Encounter: 06/11/16 Time of Encounter: 12:30 - Cardiology Event Note Echo results noted shows EF decreased to 30-35%, as previously 60% in 2013. Also shows RV normal size with mild reduction in function, Doppler evaluation suggests low flow low gradient aortic stenosis, mild MR, moderate TR, severe pulmonary hypertension. Will switch from Lopressor 50 mg by mouth twice a day to Toprol-XL 100 mg by mouth daily. We'll discontinue Cardizem 240 mg by mouth daily. We'll continue to monitor heart rate and blood pressure. Anticipate Toprol will need further titrated. Would recommend ischemic evaluation in terms of her catheterization, however with recent GI bleed (GI note reviewed), recommend medical management for now.
--- NOTE | 2016-06-11 14:05 | Electrocardiograph Report ---
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
[2016-06-11] MEDS: Metoprolol XL (24 HR) Succ 50 MG TAB.ER.24H PO SCH (14:26)
[2016-06-11] MEDS ORDERED: Pantoprazole 40 MG VIAL IVP ONE (21:19)
[2016-06-12] MEDS ORDERED: *HR* LORazepam 1 MG TABLET PO ONE (00:33)
[2016-06-12] MEDS: 0.9 % Sodium Chloride 1,000 ML IVC SCH (01:13)
[2016-06-12] MEDS: Pantoprazole 40 MG in 0.9 % Sodium Chloride Mini Bag 100 ML IVPB SCH ×4 (01:14→13:00)
[2016-06-12 05:21] LABS: Basophils % 0.1 %; Hematocrit 30.4 % (37.5-50.1); Hemoglobin 10.1 g/dL (12.9-16.9); Immature Granulocytes % 0.6 % (0-4); Lymphocytes % 5.4 %; Mean Corpuscular HGB Conc 33.2 g/dL (31.6-35.5); Mean Corpuscular Hemoglobin 32.8 pg (28.0-33.3); Mean Corpuscular Volume 98.7 fL (83.0-100.0); Mean Platelet Volume 10.7 fL (9.4-12.4); Monocytes # 0.8 K/mcL (0.0-1.3); Monocytes % 6.1 %; Platelet Count 150 K/mcL (140-400); Red Blood Count 3.08 M/mcL (4.19-5.50); Red Cell Distribution Width 15.8 % (11.5-14.5); Segmented Neutrophils % 87.8 %
[2016-06-12 05:24] LABS: Lymphocytes # 0.8 K/mcL (0.6-4.6); Neutrophils # 12.1 K/mcL (1.6-8.9)
[2016-06-12 05:45] LABS: BUN/Creatinine Ratio 37 (6-26); Carbon Dioxide 31 mEq/L (19-29); Chloride 96 mEq/L (98-109); Glucose 103 mg/dL (70-99); Magnesium 2.1 mg/dL (1.6-2.6); Osmolality,Calculated 294 (280-300); Phosphorous 3.5 mg/dL (2.3-4.7); Potassium 3.5 mEq/L (3.5-4.5); Sodium 137 mEq/L (136-145); eGFR For African Americans > 60 (> 60); eGFR For Non-African Americans > 60 (> 60)
[2016-06-12 05:46] LABS: Blood Urea Nitrogen 39 mg/dL (8-26)
[2016-06-12] MEDS ORDERED: *HR* LORazepam 2 MG/ML VIAL IM STA (06:23)
[2016-06-12] MEDS ORDERED: Ipratropium/Albuterol Neb 3 ML IH PRN (06:45)
--- NOTE | 2016-06-12 08:14 | Cardiology Progress Note ---
Date of Encounter: 06/12/16 Time of Encounter: 08:15 Assessment and Plan (1) Anemia Current Visit: Yes Status: Acute Per Cardiology: Patient with previous history of GI bleed and had been on AC in the past. He denies any active bleeding or blood loss, however appears to be on Aricept and has history of dementia. S/p 2 units PRBCs. Hemoglobin down from 13 to 7 in the past 2 months-- now 02/03. Suspect anemia contributing factor to A. fib with RVR and troponin elevation. Further management per primary service. GI following -- s/p EGD with "very large cratered duodenal bulb/pyloric channel ulcer". Qualifiers: Anemia type: unspecified type Qualified Code(s): D64.9 - Anemia, unspecified (2) Atrial fibrillation with RVR Current Visit: Yes Status: Acute Per Cardiology: Documented past history of atrial fibrillation on note by cardiology in 2013. Not anticoagulated due to history of GI bleed. Presents now with A. fib with RVR currently in the 100s. Average heart rate past 12hrs = 89. Ef down on echo and now on Toprol XL 100mg Po daily. Anticoagulation not appropriate at this time due to acute anemia with suspected GI bleed. Patient informed of increased stroke risk, no family present. Continue asa if able/ok by GI. Will attempt to discuss with today if able. (3) Acute exacerbation of CHF (congestive heart failure) Current Visit: Yes Status: Acute Per Cardiology: History of moderate diastolic dysfunction per previous cardiology office records. Most recent echo February 2013 showed EF preserved 60%,and about other dysfunction, history of bundle branch block. BNP elevated in the 1000's. Euvolemic on exam. Chest x-ray shows no overt heart failure. Echo results noted and shows EF decreased to 30-35%, was previously 60% in 2013. Also, shows RV normal size with mild reduction in function, Doppler evaluation suggests low flow low gradient aortic stenosis, mild MR, moderate TR, severe pulmonary hypertension. Tachycardia induced CMP? Ideally, would rec [facility], however will follow as outpatient in setting of acute GI bleed/anemia. Discussed with Dr. Klein, will s/o, re-consult PRN. Qualifiers: Congestive heart failure type: diastolic Qualified Code(s): I50.33 - Acute on chronic diastolic (congestive) heart failure (4) Elevated troponin Current Visit: Yes Status: Acute Per Cardiology: Peak troponin at 1.30, downward trending. Currently chest pain-free. Do not suspect non-STEMI, suspect the main ischemia with significant anemia and A. fib with RVR. No cardiac rehabilitation consult this time. Had negative stress test February 2013. Echo showed decreased EF. Medical management for now. On ASA, BB , ACEI. Will hold on statin for now-- Liver U/S shows cirrhosis. (5) Hypokalemia Current Visit: Yes Status: Acute Per Cardiology: On replacement, improved. No ventricular arrhythmias noted on telemetry, continue to monitor. Discussion w patient/family: The assessment and plan as outlined above was discussed with the patient who expressed understanding and agreement. All questions were answered. Thank you for involving us in the care of your patient. Please call with any questions. Subjective Principal diagnosis: Anemia, Elevated Trop Interval history: Patient denies any chest pain, shortness of breath, or palpitations. Continues denying any active bleeding or blood loss. No family at bedside, somewhat somnolent. Kept falling asleep during conversation. Rn reported he received Ativan during the night. Objective Selected Entries 06/12/16 03:44 Temperature 97.5 F L Pulse Rate 91 Respiratory Rate 24 Blood Pressure 147/99 O2 Sat by Pulse Oximetry 99 Oxygen Delivery Method Nasal Cannula Oxygen Flow Rate (LPM) 3 General: Conversant HEENT: Atraumatic, Normocephaly Cardiac: No Murmur, Other (Irregularly irregular) Lungs: Other (Audible expiratory wheezes noted throughout) Neuro: Alert and responsive, No focal deficits noted Extremities: No Edema Results 06/12/16 03:32 06/12/16 03:32 Lab Results Impressions Liver Ultrasound 06/11/16 10:00 IMPRESSION: 1. Findings consistent with cirrhosis with no evidence of hepatic malignancy. 2. Possible biliary sludge with no evidence of cholelithiasis or acute cholecystitis. No biliary obstruction. 3. No ascites. The portal vein is patent. 4. Right kidney parenchymal echogenic changes which may relate to medical renal disease. D/ / 06/11/2016 10:47:58 Dariel Olvera MD / Karen Noel Interpreting Provider: Dariel Olvera MD Active Medications Albuterol/Ipratropium (Duoneb) 3 ml IH [id number] PRN; Protocol PRN Reason: Shortness Of Breath/Wheezing Stop: 12/12/16 06:46 Last Admin: 06/12/16 06:52 Dose: 3 ml Aspirin (Aspirin) 81 mg PO DAILY [facility] Stop: 12/11/16 09:01 Last Admin: 06/11/16 10:34 Dose: 81 mg Donepezil HCl (Aricept) 5 mg PO HS [facility] Stop: 12/10/16 21:01 Last Admin: 06/11/16 20:33 Dose: 5 mg Furosemide (Lasix) 20 mg PO DAILY [facility] Stop: 12/12/16 09:01 Sodium Chloride (0.9 % Sodium Chloride) 1,000 mls @ 70 mls/hr IVC .[id number] [facility] Stop: 12/10/16 10:46 Last Admin: 06/12/16 01:13 Dose: 70 mls/hr Pantoprazole Sodium 40 mg/ (Sodium Chloride) 100 mls @ 20 mls/hr IVPB .Q5H [facility] Stop: 12/10/16 21:16 Last Admin: 06/12/16 03:43 Dose: 20 mls/hr Lisinopril (Zestril) 10 mg PO DAILY [facility] PRN Reason: Protocol Stop: 12/12/16 09:01 Metoprolol Succinate (Toprol Xl) 100 mg PO DAILY [facility] Stop: 12/11/16 12:31 Last Admin: 06/11/16 14:26 Dose: 100 mg Morphine Sulfate (Morphine Sulfate) 2 mg IVP Q6HR PRN PRN Reason: Severe Pain (7-10) Stop: 12/10/16 10:43 Naloxone HCl (Narcan) 0.4 mg IVP Q2MIN PRN PRN Reason: Opioid Reversal Stop: 12/10/16 10:43 Potassium Chloride (Potassium Chloride) 40 meq PO DAILY [facility] Stop: 12/11/16 09:01 Last Admin: 06/11/16 10:33 Dose: 40 meq Sucralfate (Carafate) 1 gm PO TID [facility] Stop: 12/11/16 15:01 Last Admin: 06/11/16 20:33 Dose: 1 gm - Imaging and Cardiology Echo: report reviewed - EKG Interpretation EKG results cardiology: other (Tele shows avg HR past 12 hrs 83, afib, longest pause 2 sec, PVCs and few 3 beat runs NSVT) Consult Discharge Plan - Plan Referrals: Osito Castillo Jr, MD [Primary Care Provider] - 06/24/16 1:30 pm
[2016-06-12] MEDS: Aspirin 81 MG TAB.CHEW PO SCH (08:58)
[2016-06-12] MEDS: Metoprolol XL (24 HR) Succ 50 MG TAB.ER.24H PO SCH (08:58)
[2016-06-12] MEDS ORDERED: Furosemide 20 MG TABLET PO SCH (09:00)
--- NOTE | 2016-06-12 10:09 | Internal Med Progress Note ---
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 (2) Anemia Current Visit: Yes Status: Acute Assessment and plan: Acute blood loss anemia secondary to GI bleed S/P EGD, EGD shows large duodenal bulb ulcer with extension into pyloric channel , Normal mucosa was found in the antrum, Biopsies taken On protonic drip as per GI recommendations, to continue drip for 3 days Advanced to soft diet s/p PRBC transfusion H&H within acceptable limit at this time no bleeding reported at this time will continue to monitor Qualifiers: Anemia type: unspecified type Qualified Code(s): D64.9 - Anemia, unspecified (3) GI bleed Current Visit: Yes Status: Acute Assessment and plan: plan as listed above Qualifiers: GI bleed type/associated pathology: unspecified gastrointestinal hemorrhage type Qualified Code(s): K92.2 - Gastrointestinal hemorrhage, unspecified (4) Hypertension Current Visit: Yes Status: Acute Assessment and plan: continue home medications Qualifiers: Hypertension type: essential hypertension Qualified Code(s): I10 - Essential (primary) hypertension (5) Dyspnea Current Visit: Yes Status: Acute Assessment and plan: Resolved will continue home dose of Lasix continue O2 supplementation as needed monitor O2 saturation Qualifiers: Dyspnea type: shortness of breath Qualified Code(s): R06.02 - Shortness of breath (6) Elevated troponin Current Visit: Yes Status: Acute Assessment and plan: Likely secondary to Aflutter with RVR no chest pain reported at this time (7) DVT prophylaxis Current Visit: Yes Status: Acute (8) Thrombocytopenia Current Visit: Yes Status: Acute Assessment and plan: Thrombocytopenia likely secondary to underlying liver cirrhosis, improved from previous day Liver US obtained: consistent with Cirrhosis with no evidence of hepatic malignancy. Possible biliary sludge with no evidence of cholelithiasis or acute cholecystitis. No biliary obstruction. Will continue to monitor GI consultation appreciated (9) Hypokalemia Current Visit: Yes Status: Resolved Assessment and plan: Resolved will continue to monitor electrolytes and replace as needed - Subjective Interval history: Patient seen and examined at bedside. Sitting in bed, reports of wanting to go home. Denies any sob, chest pain, palpitations, any bleeding episodes at this time. - Constitutional Vitals: Temp Pulse Resp BP Pulse Ox 97.6 F 68 18 119/57 95 06/12/16 07:00 06/12/16 07:00 06/12/16 07:00 06/12/16 07:00 06/12/16 07:00 General appearance: Present: A&O X 3, pleasant, no acute distress, obese, answers questions appropriately - Head Head exam: Present: atraumatic, normocephalic - Eye Eye exam: Present: normal appearance, conjuntiva pink, sclera anicteric - Respiratory Respiratory exam: Present: CTAB. Absent: respiratory distress, wheezes - Cardiovascular Cardiovascular exam: Present: RRR, +S1, +S2 - GI/Abdominal GI/Abdominal exam: Present: normal bowel sounds, soft. Absent: distended, tenderness - Extremities Exam Extremities exam: Present: warm, radial pulses palpable and symetrical. Absent : calf tenderness, pedal edema - Neurological Exam Neurological exam: Present: alert, oriented X3 Internal Medicine: Result - Labs CBC & Chem 7: 06/12/16 03:32 06/12/16 03:32 Labs: Short CBC 06/12/16 Range/Units 03:32 WBC 13.8 H D (4.3-11.1) K/mcL Hgb 10.1 L (12.9-16.9) g/dL Hct 30.4 L (37.5-50.1) % Plt Count 150 (140-400) K/mcL Neutrophils # 12.1 H (1.6-8.9) K/mcL BMP 06/11/16 06/12/16 13:48 03:32 Sodium 137 Potassium 3.6 3.5 Chloride 96 L Carbon Dioxide 31 H BUN 39 H D Creatinine 1.05 Glucose 103 H Calcium 8.0 L - ABG Interpretation ABG results: PT/INR, D-dimer PT 13.0 Seconds (9.4-12.1) H 06/11/16 09:30 - Impressions Impressions Liver Ultrasound 06/11/16 10:00 IMPRESSION: 1. Findings consistent with cirrhosis with no evidence of hepatic malignancy. 2. Possible biliary sludge with no evidence of cholelithiasis or acute cholecystitis. No biliary obstruction. 3. No ascites. The portal vein is patent. 4. Right kidney parenchymal echogenic changes which may relate to medical renal disease. D/ / 06/11/2016 10:47:58 Dariel Olvera MD / Karen Noel Interpreting Provider: Dariel Olvera MD Consult Discharge Plan - Plan Referrals: Osito Castillo Jr, MD [Primary Care Provider] - 06/24/16 1:30 pm Mili Mccollum CNP [Partnered Physician] - 06/19/16 2:30 pm
[2016-06-12 10:34] LABS: Hepatitis A Antibody IgM Nonreactive (Nonreactive); Hepatitis B Core IgM Nonreactive (Nonreactive); Hepatitis B Surface Antigen Nonreactive (Nonreactive); Hepatitis C Virus Antibody Nonreactive (Nonreactive)
--- NOTE | 2016-06-12 11:53 | Event Note ---
Date of Encounter: 06/12/16 Time of Encounter: 11:30 - Cardiology Event Note Patient's seen at bedside and provided updates regarding clinical condition from cardiac standpoint. She is aware patient is not on anticoagulation other than aspirin and increased risk of stroke. Also, aware of decreased EF on echo. Agreeable to follow-up with cardiology in outpatient setting. All questions answered.
[2016-06-12] MEDS ORDERED: Levalbuterol Neb 0.63 MG/3 ML IH PRN (12:14)
[2016-06-12] MEDS: Furosemide 20 MG/2 ML VIAL IVP SCH (13:18)
[2016-06-13] MEDS: Pantoprazole 40 MG in 0.9 % Sodium Chloride Mini Bag 100 ML IVPB SCH ×3 (03:50→18:38)
[2016-06-13 07:20] LABS: AFP Tumor Marker Non-Pregnant 2 ng/mL (0-9); Myeloperoxidase Ab 0 AU/mL (0-19); Serine Protease-3 Antibody 0 AU/mL (0-19)
[2016-06-13 07:28] LABS: ANA IgG by ELISA NONE DETECTED (None Detected); F-Actin (sm muscle) Ab IgG 3 Units (0-19)
[2016-06-13] MEDS: Aspirin 81 MG TAB.CHEW PO SCH (08:41)
[2016-06-13] MEDS: Metoprolol XL (24 HR) Succ 50 MG TAB.ER.24H PO SCH (08:42)
[2016-06-13] MEDS: Furosemide 20 MG/2 ML VIAL IVP SCH ×2 (08:42→15:56)
[2016-06-13 09:03] LABS: Eosinophils # 0.1 K/mcL (0.0-0.6); Eosinophils % 0.6 %; Hematocrit 30.3 % (37.5-50.1); Hemoglobin 9.8 g/dL (12.9-16.9); Lymphocytes # 0.4 K/mcL (0.6-4.6); Lymphocytes % 5.3 %; Mean Corpuscular HGB Conc 32.3 g/dL (31.6-35.5); Mean Corpuscular Hemoglobin 31.8 pg (28.0-33.3); Mean Corpuscular Volume 98.4 fL (83.0-100.0); Mean Platelet Volume 10.1 fL (9.4-12.4); Monocytes # 0.5 K/mcL (0.0-1.3); Neutrophils # 6.7 K/mcL (1.6-8.9); Platelet Count 131 K/mcL (140-400); Red Blood Count 3.08 M/mcL (4.19-5.50); Red Cell Distribution Width 15.7 % (11.5-14.5); Segmented Neutrophils % 86.1 %
[2016-06-13 09:16] LABS: BUN/Creatinine Ratio 32 (6-26); Blood Urea Nitrogen 29 mg/dL (8-26); Calcium 8.3 mg/dL (8.6-10.8); Carbon Dioxide 36 mEq/L (19-29); Chloride 96 mEq/L (98-109); Glucose 106 mg/dL (70-99); Magnesium 2.1 mg/dL (1.6-2.6); Osmolality,Calculated 288 (280-300); Phosphorous 2.6 mg/dL (2.3-4.7); Potassium 3.7 mEq/L (3.5-4.5); Sodium 136 mEq/L (136-145); eGFR For African Americans > 60 (> 60); eGFR For Non-African Americans > 60 (> 60)
--- NOTE | 2016-06-13 09:33 | Internal Med Progress Note ---
Date of Encounter: 06/13/16 Time of Encounter: 08:40 - Assessment and plan (1) CHF (congestive heart failure) Current Visit: Yes Status: Acute Assessment and plan: 2D echo: LVEF 30-35%, Moderately severe global and regional LV systolic dysfunction Dyspnea likely secondary to CHF decompensation Increase Lasix to 20 mg IV twice a day We will closely monitor I's and O's Monitor daily weight Fluid restriction diet O2 supplementation as needed Cardiology consultation appreciated Patient wishes to optimize medical therapy at this time without any procedural cardiac interventions Qualifiers: Congestive heart failure type: systolic Congestive heart failure chronicity : acute on chronic Qualified Code(s): I50.23 - Acute on chronic systolic ( congestive) heart failure (2) Atrial fibrillation with RVR Current Visit: Yes Status: Acute Assessment and plan: Rate controlled continue Cardizem and Metoprolol at this time Continue to monitor HR Aspirin started by cardiology Cardiology eval appreciated 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 (3) Anemia Current Visit: Yes Status: Acute Assessment and plan: Acute blood loss anemia secondary to GI bleed S/P EGD, EGD shows large duodenal bulb ulcer with extension into pyloric channel , Normal mucosa was found in the antrum, Biopsies taken On protonic drip as per GI recommendations, to continue drip for 3 days (Day 3/3 ) Advanced to cardiac diet s/p PRBC transfusion 06/10/16 H&H within acceptable limit at this time no bleeding reported at this time will continue to monitor Likely d/c in am Qualifiers: Anemia type: unspecified type Qualified Code(s): D64.9 - Anemia, unspecified (4) GI bleed Current Visit: Yes Status: Acute Assessment and plan: plan as listed above Qualifiers: GI bleed type/associated pathology: unspecified gastrointestinal hemorrhage type Qualified Code(s): K92.2 - Gastrointestinal hemorrhage, unspecified (5) Hypertension Current Visit: Yes Status: Acute Assessment and plan: BP within acceptable range continue home medications Qualifiers: Hypertension type: essential hypertension Qualified Code(s): I10 - Essential (primary) hypertension (6) Elevated troponin Current Visit: Yes Status: Acute Assessment and plan: Likely secondary to Aflutter with RVR no chest pain reported at this time (7) DVT prophylaxis Current Visit: Yes Status: Acute Assessment and plan: IPCD (8) Thrombocytopenia Current Visit: Yes Status: Acute Assessment and plan: Thrombocytopenia likely secondary to underlying liver cirrhosis, improved from previous day Liver US obtained: consistent with Cirrhosis with no evidence of hepatic malignancy. Possible biliary sludge with no evidence of cholelithiasis or acute cholecystitis. No biliary obstruction. Will continue to monitor GI consultation appreciated (9) Hypokalemia Current Visit: Yes Status: Resolved Assessment and plan: will continue to monitor electrolytes and replace as needed (10) COPD (chronic obstructive pulmonary disease) Current Visit: Yes Status: Acute Assessment and plan: Patient may have underlying COPD given smoking history Switched to Xopenex as Albuterol was contributing to patient's tachycardia Continues to have wheezing, will add Symbicort INH BID pulmonary follow up recommended as outpatient will obtain 6min walk test for O2 qualification Qualifiers: COPD type: unspecified COPD Qualified Code(s): J44.9 - Chronic obstructive pulmonary disease, unspecified - Subjective Interval history: Patient seen and examined at bedside. Reports of feeling significantly better compared to the previous day. Patient states he has chronic history of tobacco abuse, used to smoke 3-5 packs of cigarettes per day for 30 years, quit about 20 years ago. He was noted to have difficulty breathing yesterday evening due to which stat chest x-ray was ordered. Chest x-ray shows cardiomegaly with a small right and trace left pleural effusion. Prominent interstitial changes in the mid and lower lung mas. Patient was given 1 dose of IV 20 mg Lasix, with improvement in his symptoms. At this time patient is saturating well on nasal cannula. Patient does not have a history of using home oxygen, therefore will obtain 6 minute walk test to see if patient qualifies for home oxygen. - Constitutional Vitals: Temp Pulse Resp BP Pulse Ox 98.2 F 99 24 147/77 93 L 06/13/16 07:29 06/13/16 09:01 06/13/16 07:29 06/13/16 07:29 06/13/16 09:07 General appearance: Present: A&O X 3, pleasant, no acute distress, obese, answers questions appropriately - Head Head exam: Present: atraumatic, normocephalic - Eye Eye exam: Present: normal appearance, conjuntiva pink, sclera anicteric - Respiratory Respiratory exam: Present: wheezes (bilateral expiratory wheezing). Absent: respiratory distress, tachypnea - Cardiovascular Cardiovascular exam: Present: RRR, +S1, +S2 - GI/Abdominal GI/Abdominal exam: Present: normal bowel sounds, soft, no peritoneal signs. Absent: distended, tenderness - Extremities Exam Extremities exam: Present: pedal edema (mild pitting edema bilaterally), warm, radial pulses palpable and symetrical. Absent: calf tenderness, tenderness - Neurological Exam Neurological exam: Present: alert, oriented X3 - Psychiatric Psychiatric exam: Present: normal affect, normal mood Internal Medicine: Result - Labs CBC & Chem 7: 06/13/16 08:36 06/13/16 08:36 Labs: Short CBC 06/13/16 Range/Units 08:36 WBC 7.8 (4.3-11.1) K/mcL Hgb 9.8 L (12.9-16.9) g/dL Hct 30.3 L (37.5-50.1) % Plt Count 131 L (140-400) K/mcL Neutrophils # 6.7 (1.6-8.9) K/mcL BMP 06/13/16 08:36 Sodium 136 Potassium 3.7 Chloride 96 L Carbon Dioxide 36 H BUN 29 H D Creatinine 0.90 Glucose 106 H Calcium 8.3 L - ABG Interpretation ABG results: PT/INR, D-dimer PT 13.0 Seconds (9.4-12.1) H 06/11/16 09:30 - Impressions Impressions Chest X-Ray 06/12/16 10:27 IMPRESSION: Cardiomegaly with a small right and possible trace left pleural effusion. Prominent interstitial changes in the mid and lower lung mas may be related to mild dependent pulmonary edema or interstitial pneumonitis. D/ / Nilson Guerrero MD / Nilson Guerrero MD Interpreting Provider: Nilson Guerrero MD Consult Discharge Plan - Plan Referrals: Osito Castillo Jr, MD [Primary Care Provider] - 06/24/16 1:30 pm Mili Mccollum CNP [Partnered Physician] - 06/19/16 2:30 pm
[2016-06-13] MEDS: Budesonide/Formoterol 80/4.5 MDI IH SCH ×2 (11:32→20:05)
[2016-06-14] MEDS: Pantoprazole 40 MG in 0.9 % Sodium Chloride Mini Bag 100 ML IVPB SCH ×3 (00:24→11:13)
[2016-06-14 05:50] LABS: Eosinophils # 0.1 K/mcL (0.0-0.6); Eosinophils % 1.2 %; Hematocrit 28.5 % (37.5-50.1); Hemoglobin 9.3 g/dL (12.9-16.9); Immature Granulocytes % 0.7 % (0-4); Immature Platelets 5.7 % (1.1-6.1); Lymphocytes # 0.6 K/mcL (0.6-4.6); Lymphocytes % 9.4 %; Mean Corpuscular HGB Conc 32.6 g/dL (31.6-35.5); Mean Corpuscular Hemoglobin 31.6 pg (28.0-33.3); Mean Corpuscular Volume 96.9 fL (83.0-100.0); Mean Platelet Volume 10.3 fL (9.4-12.4); Monocytes # 0.6 K/mcL (0.0-1.3); Neutrophils # 4.7 K/mcL (1.6-8.9); Platelet Count 142 K/mcL (140-400); Red Blood Count 2.94 M/mcL (4.19-5.50); Red Cell Distribution Width 15.1 % (11.5-14.5); Segmented Neutrophils % 78.7 %
[2016-06-14 06:49] LABS: BUN/Creatinine Ratio 26 (6-26); Blood Urea Nitrogen 20 mg/dL (8-26); Calcium 7.8 mg/dL (8.6-10.8); Carbon Dioxide 32 mEq/L (19-29); Chloride 97 mEq/L (98-109); Glucose 91 mg/dL (70-99); Magnesium 1.8 mg/dL (1.6-2.6); Osmolality,Calculated 290 (280-300); Phosphorous 2.2 mg/dL (2.3-4.7); Potassium 3.8 mEq/L (3.5-4.5); Sodium 139 mEq/L (136-145); eGFR For African Americans > 60 (> 60); eGFR For Non-African Americans > 60 (> 60)
[2016-06-14 07:40] LABS: Alpha-1-Antitrypsin 211 mg/dL (90-200); Ceruloplasmin 35 mg/dL (17-54)
[2016-06-14] MEDS: Furosemide 20 MG/2 ML VIAL IVP SCH (09:51)
[2016-06-14] MEDS: Metoprolol XL (24 HR) Succ 50 MG TAB.ER.24H PO SCH (09:52)
[2016-06-14] MEDS: Aspirin 81 MG TAB.CHEW PO SCH (09:52)
--- NOTE | 2016-06-14 10:09 | Discharge Summary ---
Date of Encounter: 06/14/16 Time of Encounter: 10:07 - Discharge Diagnosis (1) CHF (congestive heart failure) Priority: Secondary Status: Acute Qualifiers: Congestive heart failure type: systolic Congestive heart failure chronicity : acute on chronic Qualified Code(s): I50.23 - Acute on chronic systolic ( congestive) heart failure (2) Atrial fibrillation with RVR Priority: Primary Status: Acute (3) Anemia Priority: Primary Status: Acute Qualifiers: Anemia type: unspecified type Qualified Code(s): D64.9 - Anemia, unspecified (4) GI bleed Priority: Primary Status: Acute Qualifiers: GI bleed type/associated pathology: unspecified gastrointestinal hemorrhage type Qualified Code(s): K92.2 - Gastrointestinal hemorrhage, unspecified (5) Hypertension Priority: Secondary Status: Chronic Qualifiers: Hypertension type: essential hypertension Qualified Code(s): I10 - Essential (primary) hypertension (6) Elevated troponin Priority: Secondary Status: Acute (7) DVT prophylaxis Priority: Secondary Status: Acute (8) Thrombocytopenia Priority: Secondary Status: Acute (9) Hypokalemia Priority: Secondary Status: Resolved (10) COPD (chronic obstructive pulmonary disease) Priority: Secondary Status: Acute Qualifiers: COPD type: unspecified COPD Qualified Code(s): J44.9 - Chronic obstructive pulmonary disease, unspecified - Discharge Medications Prescriptions: Albuterol Sulfate [Albuterol Inhaler] 1 puff IH Q4H PRN #5 inhaler PRN Reason: Shortness Of Breath Aspirin 81 mg PO DAILY #30 tab.chew Atorvastatin [Lipitor] 20 mg PO HS #30 tablet Budesonide/Formoterol 80/4.5 [Symbicort 80/4.5] 2 puff IH BIDR #5 inhaler Diltiazem HCl [Diltiazem ER] 240 mg PO DAILY #30 cap.er.deg Furosemide [Lasix] 20 mg PO BID #30 tablet Metoprolol XL (24 HR) Succ [Toprol Xl] 100 mg PO DAILY #30 tab.er.24h Omeprazole 40 mg PO BID #60 tablet.dr Sucralfate [Carafate] 1 gm PO TID #60 udc Home Medications: Donepezil [Aricept] 5 mg PO HS 06/10/16 [History] Lisinopril [Zestril] 10 mg PO DAILY 06/10/16 [History] Potassium Chloride [K-Tab ER] 20 meq PO DAILY 06/10/16 [History] Albuterol Sulfate [Albuterol Inhaler] 1 puff IH Q4H PRN #5 inhaler 06/14/16 [Rx] Aspirin 81 mg PO DAILY #30 tab.chew 06/14/16 [Rx] Atorvastatin [Lipitor] 20 mg PO HS #30 tablet 06/14/16 [Rx] Budesonide/Formoterol 80/4.5 [Symbicort 80/4.5] 2 puff IH BIDR #5 inhaler 06/14 [Rx] Diltiazem HCl [Diltiazem ER] 240 mg PO DAILY #30 cap.er.deg 06/14/16 [Rx] Furosemide [Lasix] 20 mg PO BID #30 tablet 06/14/16 [Rx] Metoprolol XL (24 HR) Succ [Toprol Xl] 100 mg PO DAILY #30 tab.er.24h 06/14/16 [ Rx] Omeprazole 40 mg PO BID #60 tablet.dr 06/14/16 [Rx] Sucralfate [Carafate] 1 gm PO TID #60 udc 06/14/16 [Rx] Allergies/Adverse Reactions: Allergies No Known Allergies Allergy (Verified 06/10/16 04:59) Procedures/tests Complete & Pending: Procedures Performed prior 72 hours Category Date Time Status US liver [US] Routine Exams 06/11/16 10:00 Completed Date of admission: 06/10/16 16:33 Primary care physician: Osito Castillo Jr, MD Consults: Cardiology: Dr. Klein GI: Dr. Blum Discharging clinician: Paola Ferrer Anticipated date of discharge: 06/14/16 - Patient Status Disposition: Home, Self-Care Condition: Good Functional capacity at discharge: independent ambulation Overall status at discharge: patient is back to baseline - Discharge Instructions Follow Up With: Osito Castillo Jr, MD [Primary Care Provider] - 06/24/16 1:30 pm Mili Mccollum CNP [Partnered Physician] - 06/19/16 2:30 pm Werner Jacobo MD [Partnered Physician] - 07/18/16 10:00 am Additional Instructions: Please follow up with your primary care physician and employee training specialist within one week after your discharge from the hospital. Please follow up with Pulmonary and Cardiology within one to two weeks after your discharge from the hospital. Metoprolol and Lasix dosing of your home medication has been changed, please take these medication as prescribed. Symbicort and Albuterol has been added to your home medications, please take these medications as prescribed. Carafate has been added to your home medications and Omeprazole dosage has been changed. Please take these medications as prescribed. Please resume all your home medications as prescribed by your primary care physician. Please continue to use home oxygen therapy. - Diet and Activity Activity: increase activity as tolerated, wear oxygen at all times Diet: low salt diet Hospital course: Mr. Figueroa is a 85 year old male with PMH of CHF, mild dementia HLD, hypertension , former smoker who was admitted for management of upper GI bleed and new onset Afib with RVR. Patient was noted to have acute blood loss anemia requiring PRBC transfusion during admission. He underwent EGD done by Dr. Blum which showed large duodenal bulb ulcer with extension into pyloric channel for which he was placed on protonix drip for 3 days. He was also noted to be in acute respiratory distress upon his arrival, requiring O2 supplementation. Cardiology was consulted for his new onset Afib. repeat Echo showed worsening of his LVEF, given his age and comorbidities, medical management was recommended and family and patient agreed. Patient was started on Toprol XL 100mg PO qd along with cardizem with which his HR was controlled. He was also not considered a candidate for anticoagulation given his recent GI bleed. He was also noted to have persistent dyspnea and was noted to have mild bilateral pleural effusions which improved with IV diuretic therapy. He also reported history of being a former smoker, smoking 3-5packs/day for 30+years. Since he continued to require O2 supplementation, O2 qualification test was performed and patient qualified for home oxygen. 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 He was also started on Symbicort, as he likely has undiagnosed COPD. Patient will be going home with home O2 and follow up with pulmonary. At this time, patient is hemodynamically stable. No recurrent bleeding episodes reported. He is saturating well on nasal cannula and in agreement with wearing home oxygen. He will be discharged to home with follow up with PCP, GI, Cardio, and Pulmonary. Patient and his demonstrate understanding of his diagnosis and agree with the discharge care and plan. - Time Spent with Patient Total time spent providing and/or coordinating discharge services: Greater than 30 minutes - Constitutional Vitals: Temp Pulse Resp BP Pulse Ox 98.8 F 108 18 141/74 100 06/14/16 07:28 06/14/16 07:28 06/14/16 07:28 06/14/16 07:28 06/14/16 07:28 General appearance: Present: A&O X 3, pleasant, no acute distress, obese, answers questions appropriately - Head Head exam: Present: atraumatic, normocephalic - Eye Eye exam: Present: normal appearance, conjuntiva pink, sclera anicteric - Respiratory Respiratory exam: Present: CTAB. Absent: accessory muscle use, rales, rhonchi, wheezes - Cardiovascular Cardiovascular exam: Present: RRR, +S1, +S2. Absent: diastolic murmur, gallop, rubs, systolic murmur - GI/Abdominal GI/Abdominal exam: Present: normal bowel sounds, soft, no peritoneal signs. Absent: distended, tenderness - Extremities Exam Extremities exam: Present: warm, radial pulses palpable and symetrical. Absent : calf tenderness, cyanotic, pedal edema - Neurological Exam Neurological exam: Present: alert, oriented X3 - Psychiatric Psychiatric exam: Present: normal affect, normal mood
[2016-06-14] MEDS ORDERED: Diltiazem CD (24hr) 240 MG CAPSULE PO SCH (10:15)
[2016-06-14] MEDS: Budesonide/Formoterol 80/4.5 MDI IH SCH (11:00)
[2016-06-14 11:04] VITALS: BP 140/70
== END 2016-06-14 13:40 | disposition home or self-care (01) | DRG 377 ==
LOC: 2NNU 03:43 → EMEROO 03:43 → 2NNU 09:29 → 2NENU 06-14 03:58
PROVIDERS: ADMIT Internal Medicine; ATTEND Internal Medicine
PROC: ENDOEBX (2016-06-10 20:30)

== ENCOUNTER 2017-05-29 14:26 | Inpatient (IN) ==
[2017-05-29] MEDS ORDERED: Ipratropium/Albuterol Neb 3 ML IH ONE ×2 (14:32→14:35)
[2017-05-29] MEDS ORDERED: methylPREDNISolone 125 MG/2 ML VIAL IVP ONE (14:36)
--- NOTE | 2017-05-29 14:37 | Emergency Department Note ---
Disposition Clinical Impression: Bronchitis, Acute exacerbation of chronic obstructive airways disease Disposition: Admitted As Inpatient Condition: Fair Forms: ED Satisfaction Letter Time of Disposition: 17:23 SOB HPI - General Chief Complaint: ED Shortness of Breath/Dyspnea Stated Complaint: SOB Time Seen by Provider: 05/29/17 14:28 Source: patient Limitations: no limitations Nursing Notes Reviewed: Yes Vital Signs Reviewed: Yes - History of Present Illness 86-year-old male history of CHF, COPD, presents with shortness of breath cough and congestion, brought in by EMS for difficulty breathing. Patient is given repeated treatments in route, currently complaining of worsening shortness of breath. Some productive cough, low-grade fevers. Patient has had a history of COPD exacerbations been with no recent hospitalizations. Patient had no history of CAD, patient's 9 chest pain, mostly presents with shortness of breath , he has had some lower his family swelling as well, he states he has Lasix but is not sure what his doses. Pt Subjective Complaint: shortness of breath Onset (ago): hour(s) Context: occurred during exertion Known history of: COPD, asthma, congestive heart failure Associated symptoms: Reports: fever, cough, wheezing. Denies: chest pain, sputum production, orthopnea, lower extremity pain, palpitations Treatment prior to arrival: bronchodilator - Related Data Home Medications Medication Instructions Recorded Confirmed Lisinopril [Zestril] 10 mg PO DAILY 06/10/16 05/29/17 Potassium Chloride [K-Tab ER] 20 meq PO DAILY 06/10/16 05/29/17 Albuterol Sulfate [Ventolin Hfa] 2 puff IH Q4H PRN 05/29/17 05/29/17 Atorvastatin Calcium [Lipitor] 20 mg PO HS 05/29/17 05/29/17 Donepezil [Aricept] 10 mg PO HS 05/29/17 05/29/17 Metoprolol XL (24 HR) Succ [Toprol 25 mg PO BID 05/29/17 05/29/17 Xl] Omeprazole [PriLOSEC] 40 mg PO BID 05/29/17 05/29/17 Previous Rx's Medication Instructions Recorded Aspirin 81 mg PO DAILY #30 tab.chew 06/14/16 Furosemide [Lasix] 20 mg PO BID #30 tablet 06/14/16 Allergies Allergy/AdvReac Type Severity Reaction Status Date / Time No Known Allergies Allergy Verified 06/10/16 04:59 All systems ED: reviewed and negative except as stated. Review of Systems: As Per HPI Constitutional: Denies: fever, chills Eyes: Denies: eye pain ENT ED: Denies: ear pain, congestion Cardiovascular: Reports: as per HPI, chest pain Respiratory: Reports: cough, dyspnea Gastrointestinal: Denies: abdominal pain, nausea Genitourinary: Denies: urgency Musculoskeletal: Denies: back pain Integumentary: Denies: rash Neurological: Denies: headache Psychiatric: Denies: anxiety Endocrine: Denies: fatigue Past Medical History - Past Medical History Attestation: Yes The following information was validated with the patient. Source: patient Medical history: Reports: atrial fibrillation, CHF, COPD, dementia, hyperlipidemia, hypertension, myocardial infarction, other Surgical history: Reports: no surgical history Psychiatric history: Reports: no psych history - Social History Smoking Status: Former smoker Smokeless Tobacco Status: No Alcohol use: Reports: recent Drug use: Reports: none Physical Exam Constitutional: Elderly male appears in mild respiratory distress, uncomfortable, tachypneic. Eyes: PERRLA, sclera anicteric ENT & Mouth: MMM Neck: normal inspection, neck is supple Resp: Inspiratory and expiratory wheezes. Denies breath sounds at the right base. CV: RRR, no m/g/r +1 pitting edema bilateral lower extremity GI: normal inspection, soft, no guarding or rigidity Neuro: A&O3, CNII-XII grossly intact, SEAY Skin: on limited exam, skin intact with no rashes or lesions - General Limitations: no limitations General appearance: alert Course Course Narrative: 86-year-old male with mixed COPD versus CHF exacerbation, the patient will be given do nebs, does not appear extremely volume overloaded, chest x-ray basic lab work CBC BMP EKG, his EKG showed no acute ischemic changes. - Reevaluation(s) Reevaluation #1: Patient will be admitted to the hospitalist, Dr Boo for COPD exacerbation, acute findings of bronchitis right-sided pleural effusion, will be started on Levaquin as well. Time: 17:22 Vital Signs Temperature 98.5 F 05/29/17 14:28 Pulse Rate 84 05/29/17 14:28 Respiratory Rate 24 05/29/17 14:28 Blood Pressure 178/140 05/29/17 14:28 O2 Sat by Pulse Oximetry 95 05/29/17 14:28 Temperature 98.5 F 05/29/17 14:28 Pulse Rate 126 05/29/17 17:00 Respiratory Rate 18 05/29/17 17:00 Blood Pressure 168/120 05/29/17 17:00 O2 Sat by Pulse Oximetry 98 05/29/17 17:00 Oxygen Delivery Oxygen Delivery Nasal Cannula Shortness of Breath/Dyspnea - Differential Diagnosis Likely: acute exacerbation of chronic obstructive airways disease, congestive heart failure, pneumonia - Medical Records Medical records reviewed: Yes I reviewed the patient's medical records. - Lab Data Lab results reviewed: Yes I reviewed the patient's lab results. Result diagrams: 05/29/17 14:35 05/29/17 14:35 Lab Results 05/29/17 05/29/17 05/29/17 Range/Units 14:35 14:35 14:35 WBC 3.4 L (4.3-11.1) K/mcL RBC 3.54 L (4.19-5.50) M/mcL Hgb 10.3 L (12.9-16.9) g/dL Hct 32.0 L (37.5-50.1) % MCV 90.4 (83.0-100.0) fL MCH 29.1 (28.0-33.3) pg MCHC 32.2 (31.6-35.5) g/dL RDW 14.0 (11.5-14.5) % Plt Count 116 L (140-400) K/mcL MPV 9.8 (9.4-12.4) fL Immature Gran % 0.3 (0-4) % Seg Neutrophils % 76.4 % Lymphocytes % 15.6 % Monocytes % 7.7 % Eosinophils % 0.0 % Basophils % 0.0 % Neutrophils # 2.6 (1.6-8.9) K/mcL Lymphocytes # 0.5 L (0.6-4.6) K/mcL Monocytes # 0.3 (0.0-1.3) K/mcL Eosinophils # 0.0 (0.0-0.6) K/mcL Basophils # 0.0 (0.0-0.2) K/mcL Sodium 133 L (136-145) mEq/L Potassium 3.5 (3.5-5.1) mEq/L Chloride 94 L (98-107) mEq/L Carbon Dioxide 31 H (23-29) mEq/L BUN 17 (8-23) mg/dL Creatinine 1.17 (0.70-1.30) mg/dL Est GFR ( Amer) > 60 (> 60) Est GFR (Non-Af Amer) 59 L (> 60) BUN/Creatinine Ratio 15 (6-26) Glucose 99 (70-105) mg/dL Calculated Osmolality 278 L (280-300) Lactic Acid 1.0 (0.5-2.2) mmol/L Calcium 8.9 (8.6-10.3) mg/dL Troponin I (< 0.04) ng/mL B-Natriuretic Peptide (Less than 100) pg/mL 05/29/17 05/29/17 Range/Units 14:35 14:35 WBC (4.3-11.1) K/mcL RBC (4.19-5.50) M/mcL Hgb (12.9-16.9) g/dL Hct (37.5-50.1) % MCV (83.0-100.0) fL MCH (28.0-33.3) pg MCHC (31.6-35.5) g/dL RDW (11.5-14.5) % Plt Count (140-400) K/mcL MPV (9.4-12.4) fL Immature Gran % (0-4) % Seg Neutrophils % % Lymphocytes % % Monocytes % % Eosinophils % % Basophils % % Neutrophils # (1.6-8.9) K/mcL Lymphocytes # (0.6-4.6) K/mcL Monocytes # (0.0-1.3) K/mcL Eosinophils # (0.0-0.6) K/mcL Basophils # (0.0-0.2) K/mcL Sodium (136-145) mEq/L Potassium (3.5-5.1) mEq/L Chloride (98-107) mEq/L Carbon Dioxide (23-29) mEq/L BUN (8-23) mg/dL Creatinine (0.70-1.30) mg/dL Est GFR ( Amer) (> 60) Est GFR (Non-Af Amer) (> 60) BUN/Creatinine Ratio (6-26) Glucose (70-105) mg/dL Calculated Osmolality (280-300) Lactic Acid (0.5-2.2) mmol/L Calcium (8.6-10.3) mg/dL Troponin I 0.03 (< 0.04) ng/mL B-Natriuretic Peptide 603 H (Less than 100) pg/mL - Radiology Data Radiology results reviewed: Yes I reviewed the patient's radiology results. Chest X-Ray 05/29/17 14:36 IMPRESSION: COPD, with small right sided pleural effusion. Some bronchial thickening may be related to superimposed acute bronchitis. D/ / Nilson Guerrero MD / Nilson Guerrero MD Interpreting Provider: Nilson Guerrero MD - EKG Data EKG attestation: Yes I reviewed and interpreted this EKG. EKG shows normal: Reports: sinus rhythm Rhythm: Reports: A.Fib (Meds a 73 minute QRS [address] segment elevations or depressions.)
--- NOTE | 2017-05-29 14:45 | Emergency Department Note ---
START Narrative - START START: I examined this patient and my medical decision-making was reviewed with the emergency medicine resident. I agree with the documented findings, disposition and treatment plan as described except to the extent set forth below. Patient seen with emergency medicine resident Dr. NELLY UNGER, Please see a copy of his note for details of the H&P, ED evaluation, management and disposition. I have independently evaluated the patient and confirmed appropriate portions of the history and physical exam. Briefly: 86 year old male by EMS for shortness of breath and coughing. Long- standing history of tobacco use and likely COPD. Comes in wheezing with rhonchi. His has pneumonia per patient. Patient will get DuoNeb treatments and steroids chest x-ray EKG screening labs. Admission anticipated. Provided 40 minutes of critical care service for this patient. Disposition pending
[2017-05-29 14:46] LABS: Hemoglobin 10.3 g/dL (12.9-16.9); Immature Granulocytes % 0.3 % (0-4); Lymphocytes # 0.5 K/mcL (0.6-4.6); Lymphocytes % 15.6 %; Mean Corpuscular HGB Conc 32.2 g/dL (31.6-35.5); Mean Corpuscular Hemoglobin 29.1 pg (28.0-33.3); Mean Corpuscular Volume 90.4 fL (83.0-100.0); Mean Platelet Volume 9.8 fL (9.4-12.4); Monocytes # 0.3 K/mcL (0.0-1.3); Monocytes % 7.7 %; Neutrophils # 2.6 K/mcL (1.6-8.9); Platelet Count 116 K/mcL (140-400); Red Blood Count 3.54 M/mcL (4.19-5.50); Segmented Neutrophils % 76.4 %
[2017-05-29 15:54] LABS: BUN/Creatinine Ratio 15 (6-26); Blood Urea Nitrogen 17 mg/dL (8-23); Calcium 8.9 mg/dL (8.6-10.3); Carbon Dioxide 31 mEq/L (23-29); Chloride 94 mEq/L (98-107); Glucose 99 mg/dL (70-105); Osmolality,Calculated 278 (280-300); Potassium 3.5 mEq/L (3.5-5.1); Sodium 133 mEq/L (136-145); eGFR For African Americans > 60 (> 60); eGFR For Non-African Americans 59 (> 60)
[2017-05-29] MEDS ORDERED: Levofloxacin 750 MG/150 ML 750 MG/150 ML BAG IVPB ONE (16:59)
[2017-05-29] MEDS ORDERED: Naloxone 0.4 MG/ML INJ IVP PRN (17:32)
[2017-05-29] MEDS ORDERED: *HR* Promethazine 25 MG/ML VIAL IVP PRN (17:32)
[2017-05-29] MEDS ORDERED: Ondansetron 4 MG/2 ML VIAL IVP PRN (17:32)
[2017-05-29] MEDS ORDERED: Acetaminophen 325 MG TABLET PO PRN (17:32)
[2017-05-29] MEDS ORDERED: *HR* HYDROcodone/Acet 5/325 mg TABLET PO PRN (17:32)
[2017-05-29] MEDS ORDERED: Mag Hydrox/Al Hydrox/Simeth 30 ML UDC PO PRN (17:32)
--- NOTE | 2017-05-29 17:43 | Internal Med History&Physical ---
Date of Encounter: 05/29/17 Time of Encounter: 17:15 Assessment and Plan (1) Acute respiratory failure with hypoxia Current visit: Yes Status: Acute Will admit the pt into Tele His resp failure is multi factorial with COPD exacerbation + CHF exacerbation would place him on O2 Duoneb BRIA High dose IV Steroids empirical abx Levaquin sent for sputum cx, Strep, Legionella, and Resp viral panel (2) Acute exacerbation of chronic obstructive airways disease Current visit: Yes Status: Acute on high dose IV steroids Duoneb + O2 (3) Bronchitis Current visit: Yes Status: Acute Reviewed CXR showed jude bronchial thickening, inc vascular congestion .. Rt pleural effusion his bronchitis mostly bacterial cont empirical abx Levaquin (4) Systolic CHF, acute on chronic Current visit: Yes Status: Acute He does have mild systolic CHF exacerbation reviewed 2 D Echo from 06/21 showed systolic dysfunction repeat 2D Echo in AM Will give him IV Lasix 20mg BID x 2 doses Resumed home meds (5) Atrial fibrillation with RVR Current visit: No Status: Acute Rate fairly controlled due to resp distress Cont home med Metoprolol Reviewed previous medical records, pt had h/o GI Bleed, not a candidate for anti coag cont ASA (6) Pleural effusion, right Current visit: No Status: Acute (7) Hypertension Current visit: No Status: Chronic stable with current meds Qualifiers: Hypertension type: essential hypertension Qualified Code(s): I10 - Essential (primary) hypertension Internal Medicine - H&P: HPI Chief complaint: Shortness of breath Admitted From: Emergency Dept Plans for Post Hospital Care: Home History of present illness: Mr. Figueroa is a 86 year old male with known Systolic CHF with EF 35%, COPD not on home O2 dependent, HTN, HLD and chronic A fib used to be on coumadin for anticoag which stopped a year ago due to severe GI bleed ( as per cardiology consultation 06/2016 ) but pt does not know anything about anticoagulation medication now he presented to ER with shortness of breath cough and congestion since y/d. He does have productive cough with yellowish expectoration and low- grade fevers. He denied any CP. He denied any pedal edema and orthopnea. His CXR showed b/l lower lobe infiltrates and inc vascular congestion as well as small pleural effusion Past Med Surg Social Fam HX - Past Medical History Medical history: atrial fibrillation, CHF, COPD, dementia, hyperlipidemia, hypertension, myocardial infarction, other Psychiatric history: no psych history - Past Surgical History Surgical History: no surgical history - Social History Smoking Status: Former smoker Smokeless Tobacco Status: No Alcohol use: recent Drug use: none - Additional Family History Additional family history: Family hsitory reviewed and non contribuitory to current problem. Internal Medicine - H&P: Meds Lisinopril [Zestril] 10 mg PO DAILY 06/10/16 [History] Potassium Chloride [K-Tab ER] 20 meq PO DAILY 06/10/16 [History] Aspirin 81 mg PO DAILY #30 tab.chew 06/14/16 [Rx] Furosemide [Lasix] 20 mg PO BID #30 tablet 06/14/16 [Rx] Albuterol Sulfate [Ventolin Hfa] 2 puff IH Q4H PRN 05/29/17 [History] Atorvastatin Calcium [Lipitor] 20 mg PO HS 05/29/17 [History] Donepezil [Aricept] 10 mg PO HS 05/29/17 [History] Metoprolol XL (24 HR) Succ [Toprol Xl] 25 mg PO BID 05/29/17 [History] Omeprazole [PriLOSEC] 40 mg PO BID 05/29/17 [History] 3 Allergy/AdvReac Type Severity Reaction Status Date / Time No Known Allergies Allergy Verified 06/10/16 04:59 All Systems PM: A 10-system review of systems was performed and is negative for pertinent findings except as documented above in the HPI. Review of systems: All the systems are reviewed everything is benign except the systems and symptoms I mentioned in the history of present illness - Constitutional Vitals: Temp Pulse Resp BP Pulse Ox 98.5 F 126 18 168/120 98 05/29/17 14:28 05/29/17 17:00 05/29/17 17:00 05/29/17 17:00 05/29/17 17:00 General appearance: Present: cooperative, A&O X 3, answers questions appropriately - Head Head exam: Present: atraumatic, normal inspection - Neck Neck exam general surgery: Present: supple - Respiratory Respiratory exam: Present: decreased breath sounds, rales (+), respiratory distress (mild), wheezes (moderate to severe wheezing). Absent: rhonchi - Cardiovascular Cardiovascular exam: Present: irregular rhythm, +S1, +S2, tachycardia - GI/Abdominal GI/Abdominal exam: Present: normal bowel sounds, soft. Absent: rebound, rigid, tenderness - Extremities Exam Extremities exam: Absent: calf tenderness, pedal edema, tenderness - Back Exam Back exam: Absent: CVA tenderness (L), CVA tenderness (R) - Neurological Exam Neurological exam: Present: alert, oriented X3, no focal deficits - Psychiatric Psychiatric exam: Present: normal affect, normal mood - Skin Skin exam: Absent: rash Internal Med - H&P Results - Labs CBC & Chem 7: 05/29/17 14:35 05/29/17 14:35 Labs: Short CBC 05/29/17 Range/Units 14:35 WBC 3.4 L (4.3-11.1) K/mcL Hgb 10.3 L (12.9-16.9) g/dL Hct 32.0 L (37.5-50.1) % Plt Count 116 L (140-400) K/mcL Neutrophils # 2.6 (1.6-8.9) K/mcL BMP 05/29/17 14:35 Sodium 133 L Potassium 3.5 Chloride 94 L Carbon Dioxide 31 H BUN 17 Creatinine 1.17 Glucose 99 Calcium 8.9 Cardiac Enzymes 05/29/17 Range/Units 14:35 Troponin I 0.03 (< 0.04) ng/mL - Impressions ITS Impressions Chest X-Ray 05/29/17 14:36 IMPRESSION: COPD, with small right sided pleural effusion. Some bronchial thickening may be related to superimposed acute bronchitis. D/ / Nilson Guerrero MD / Nilson Guerrero MD Interpreting Provider: Nilson Guerrero MD
[2017-05-29] MEDS: Furosemide 20 MG/2 ML VIAL IVP SCH (18:29)
[2017-05-29] MEDS: MethylPREDNISolone 40 MG/ML VIAL IVP SCH ×2 (18:29→23:35)
[2017-05-29] MEDS: Ipratropium/Albuterol Neb 3 ML IH SCH ×2 (20:29→23:42)
[2017-05-29] MEDS: Metoprolol XL (24 HR) Succ 25 MG TAB.ER.24H PO SCH (21:01)
[2017-05-29 22:30] LABS: Adenovirus Not Detected (Not Detect); Bordetella Pertussis Not Detected (Not Detect); Chlamydophila pneumoniae Not Detected (Not Detect); Coronavirus 229E Not Detected (Not Detect); Coronavirus HKU1 Not Detected (Not Detect); Coronavirus NL63 Not Detected (Not Detect); Coronavirus OC43 Not Detected (Not Detect); Human Metapneumovirus Not Detected (Not Detect); Human Rhinovirus/Enterovirus Not Detected (Not Detect); Influenza A Subtype 2009 H1 Not Detected (Not Detect); Influenza A Untypeable Not Detected (Not Detect); Influenza B ***DETECTED*** (Not Detect); Mycoplasma pneumoniae Not Detected (Not Detect); Parainfluenza Virus 1 Not Detected (Not Detect); Parainfluenza Virus 2 Not Detected (Not Detect); Parainfluenza Virus 3 Not Detected (Not Detect); Parainfluenza Virus 4 Not Detected (Not Detect); Respiratory Syncytial Virus Not Detected (Not Detect)
[2017-05-30] MEDS: Ipratropium/Albuterol Neb 3 ML IH SCH ×7 (03:46→23:38)
[2017-05-30 04:43] LABS: Hemoglobin 9.3 g/dL (12.9-16.9)
[2017-05-30 04:45] LABS: Hematocrit 28.3 % (37.5-50.1); Lymphocytes # 0.1 K/mcL (0.6-4.6); Lymphocytes % 5.9 %; Mean Corpuscular HGB Conc 32.9 g/dL (31.6-35.5); Mean Corpuscular Hemoglobin 29.2 pg (28.0-33.3); Mean Platelet Volume 10.1 fL (9.4-12.4); Monocytes % 2.2 %; Platelet Count 109 K/mcL (140-400); Red Blood Count 3.18 M/mcL (4.19-5.50); Red Cell Distribution Width 13.9 % (11.5-14.5); Segmented Neutrophils % 91.9 %
[2017-05-30 04:57] LABS: BUN/Creatinine Ratio 16 (6-26); Blood Urea Nitrogen 16 mg/dL (8-23); Calcium 8.6 mg/dL (8.6-10.3); Carbon Dioxide 32 mEq/L (23-29); Chloride 94 mEq/L (98-107); Chol/HDL Ratio 2.2 (0-4.9); Cholesterol 89 mg/dL (< 200); Glucose 189 mg/dL (70-105); HDL Cholesterol 40 mg/dL (40-59); LDL Cholesterol,Calculated 39 mg/dL (0-99); Magnesium 1.5 mg/dL (1.6-2.6); Osmolality,Calculated 284 (280-300); Potassium 3.9 mEq/L (3.5-5.1); Sodium 134 mEq/L (136-145); Triglycerides 48 mg/dL (< 150); eGFR For African Americans > 60 (> 60); eGFR For Non-African Americans > 60 (> 60)
[2017-05-30 04:59] LABS: Neutrophils # 1.3 K/mcL (1.6-8.9)
[2017-05-30 06:04] LABS: Platelet Estimate Decreased (Normal); Toxic Granulation Present (Not Present)
[2017-05-30] MEDS: MethylPREDNISolone 40 MG/ML VIAL IVP SCH ×4 (06:23→23:44)
[2017-05-30] MEDS: Aspirin 81 MG TAB.CHEW PO SCH (07:57)
[2017-05-30] MEDS: Metoprolol XL (24 HR) Succ 25 MG TAB.ER.24H PO SCH ×2 (07:57→20:15)
[2017-05-30] MEDS: Furosemide 20 MG/2 ML VIAL IVP SCH ×2 (07:57→20:15)
[2017-05-30] MEDS: Levofloxacin 500 MG/100 ML 500 MG/100 ML BAG IVPB SCH (08:04)
--- NOTE | 2017-05-30 09:36 | Electrocardiograph Report ---
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
--- NOTE | 2017-05-30 15:52 | Internal Med Progress Note ---
Date of Encounter: 05/30/17 Time of Encounter: 14:00 - Assessment and plan (1) CHF (congestive heart failure) Current Visit: No Status: Acute Assessment and plan: per hx. TTE with EF 55% which has improved from TTE. BNP 660, CXR with a small right-sided pleural effusion. Holding home Lasix. Continue low-dose IV diuresis for now. Strict I and O, daily weights. Qualifiers: Qualified Code(s): I50.23 - Acute on chronic systolic (congestive) heart failure (2) COPD (chronic obstructive pulmonary disease) Current Visit: No Status: Acute Assessment and plan: Has known COPD. Symptomatic with chest congestion, wheezing and shortness of breath. CXR with evidence of COPD with possible superimposed acute bronchitis. Continue IV Levaquin, steroids and breathing treatments. Qualifiers: COPD type: unspecified COPD Qualified Code(s): J44.9 - Chronic obstructive pulmonary disease, unspecified (3) Influenza A Current Visit: Yes Status: Acute Assessment and plan: Rapid flu swab positive for influenza A. Start Tamiflu. (4) Pancytopenia Current Visit: Yes Status: Acute Assessment and plan: With leukopenia, anemia and pancytopenia. Baseline appears to be normal. Etiology unknown. No known malignancy. Peripheral blood smear pending. Possibly secondary to viral illness with influenza. Monitor repeat CBC (5) Alcohol abuse Current Visit: Yes Status: Acute Assessment and plan: Patient reports drinking "booze daily". Says he drinks Wise whiskey. Unclear how much or often he actually drinks. Family at bedside and endorses he does drink alcohol. No history of alcohol withdrawal. No history of seizures. We will place [facility] for completeness. (6) Dementia Current Visit: Yes Status: Acute Assessment and plan: per hx. Mentation at baseline. Cont home medications. Supportive care Qualifiers: Dementia type: vascular dementia Dementia behavioral disturbance: without behavioral disturbance Qualified Code(s): F01.50 - Vascular dementia without behavioral disturbance (7) DVT prophylaxis Current Visit: No Status: Acute Assessment and plan: SCD - Subjective Interval history: Seen and examined at bedside. Patient is new to me. Information obtained from chart review and patient report. Patient says he feels better and wants to go home. He is alert and oriented pleasantly confused. Granddaughter at bedside who says patient is a little more confused than normal. He does have a history of dementia. - Constitutional Vitals: Temp Pulse Resp BP Pulse Ox 99.1 F 84 17 175/90 97 05/30/17 11:47 05/30/17 11:47 05/30/17 11:47 05/30/17 11:47 05/30/17 11:47 General appearance: Present: cooperative, A&O X 2, answers questions appropriately - Head Head exam: Present: atraumatic, normocephalic - Eye Eye exam: Present: PERRL, conjuntiva pink, sclera anicteric Pupils: Present: PERRL - Neck Neck exam general surgery: Present: supple, trachea midline. Absent: lymphadenopathy - Respiratory Respiratory exam: Present: CTAB. Absent: accessory muscle use, rales, rhonchi, wheezes - Cardiovascular Cardiovascular exam: Present: RRR, +S1, +S2. Absent: diastolic murmur, gallop, rubs, systolic murmur - GI/Abdominal GI/Abdominal exam: Present: normal bowel sounds, soft, no peritoneal signs. Absent: distended, tenderness - Extremities Exam Extremities exam: Present: warm, radial pulses palpable and symmetrical. Absent : calf tenderness, cyanotic, pedal edema - Neurological Exam Neurological exam: Present: CN II-XII intact, oriented X3, no focal deficits. Absent: pronater drift, facial droop, speech deficit - Skin Skin exam: Present: dry, intact Internal Medicine: Result - Labs CBC & Chem 7: 05/30/17 04:08 05/30/17 04:08 Labs: Short CBC 05/30/17 Range/Units 04:08 WBC 1.4 L D (4.3-11.1) K/mcL Hgb 9.3 L (12.9-16.9) g/dL Hct 28.3 L (37.5-50.1) % Plt Count 109 L (140-400) K/mcL Neutrophils # 1.3 L (1.6-8.9) K/mcL BMP 05/30/17 04:08 Sodium 134 L Potassium 3.9 Chloride 94 L Carbon Dioxide 32 H BUN 16 Creatinine 0.98 Glucose 189 H Calcium 8.6 - Impressions Impressions Echocardiogram 05/30/17 17:39 Impressions: LVEF 55%. Normal LV chamber size and function. Mild concentric left ventricular hypertrophy. Indeterminate diastolic function. Normal right ventricular structure and function. Severely dilated left atrium. Severely dilated right atrium. Moderately calcified aortic valve leaflets. Mild aortic regurgitation. No aortic stenosis detected by Doppler. Gradient may be underestimated. Moderate tricuspid regurgitation. Moderate-severe pulmonary hypertension. Estimated RVSP is 56 mmHg. Compared to prior report dated 06/2016, LVEF has improved. Left Ventricular Wall Motion: Rest Echo Findings All wall segments showed normal motion. Findings: Study Quality * Technically adequate exam. ECG Findings * Atrial fibrillation. Left Ventricle * LVEF 55%. * Normal LV chamber size and function. * Mild concentric left ventricular hypertrophy. * Indeterminate diastolic function. Right Ventricle * Normal right ventricular structure and function. Left Atrium * Severely dilated left atrium. Right Atrium * Severely dilated right atrium. Aortic Valve * Moderately calcified aortic valve leaflets. * Mild aortic regurgitation. * No aortic stenosis detected by Doppler. Gradient may be underestimated. Mitral Valve * Normal mitral valve structure and function. * Trace mitral regurgitation. * No mitral stenosis. Tricuspid Valve * Normal tricuspid valve structure. * Moderate tricuspid regurgitation. * Moderate-severe pulmonary hypertension. * Estimated RVSP is 56 mmHg. * Estimated RA pressure is 5 mmHg. Pulmonic Valve * Pulmonic valve is not well visualized. * No pulmonic regurgitation. Aorta * Normally sized aortic root. Pericardium * The pericardium appears normal. IVC * Normal IVC dimensions and inspiratory collapse. Pulmonary Artery * Normal visualized portions of the main pulmonary artery. Consult Discharge Plan - Plan Referrals: Osito Castillo Jr, MD [Primary Care Provider] -
[2017-05-30] MEDS ORDERED: *HR* LORazepam 2 MG/ML VIAL IVP PRN ×3 (15:59)
[2017-05-30] MEDS: Vitamin B Complex/Vit C/Vit E 1 EACH TABLET PO SCH (17:22)
[2017-05-30] MEDS: Folic Acid 1 MG TABLET PO SCH (17:22)
[2017-05-30] MEDS: Oseltamivir Phosphate 30 MG CAPSULE PO SCH (20:15)
[2017-05-31] MEDS: Ipratropium/Albuterol Neb 3 ML IH SCH ×3 (03:54→10:59)
[2017-05-31 05:42] LABS: Hematocrit 29.7 % (37.5-50.1); Hemoglobin 9.5 g/dL (12.9-16.9); Mean Corpuscular Hemoglobin 28.9 pg (28.0-33.3); Mean Corpuscular Volume 90.3 fL (83.0-100.0); Mean Platelet Volume 9.8 fL (9.4-12.4); Platelet Count 130 K/mcL (140-400); Red Blood Count 3.29 M/mcL (4.19-5.50); Red Cell Distribution Width 13.7 % (11.5-14.5)
[2017-05-31 06:05] LABS: BUN/Creatinine Ratio 20 (6-26); Blood Urea Nitrogen 21 mg/dL (8-23); Calcium 8.6 mg/dL (8.6-10.3); Carbon Dioxide 30 mEq/L (23-29); Chloride 95 mEq/L (98-107); Glucose 144 mg/dL (70-105); Osmolality,Calculated 280 (280-300); Potassium 3.7 mEq/L (3.5-5.1); Sodium 132 mEq/L (136-145); eGFR For African Americans > 60 (> 60); eGFR For Non-African Americans > 60 (> 60)
[2017-05-31] MEDS: MethylPREDNISolone 40 MG/ML VIAL IVP SCH ×2 (06:34→13:28)
[2017-05-31] MEDS: Furosemide 20 MG/2 ML VIAL IVP SCH (08:38)
[2017-05-31] MEDS: Levofloxacin 500 MG/100 ML 500 MG/100 ML BAG IVPB SCH (08:39)
[2017-05-31] MEDS: Oseltamivir Phosphate 30 MG CAPSULE PO SCH (08:39)
[2017-05-31] MEDS: Aspirin 81 MG TAB.CHEW PO SCH (08:39)
[2017-05-31] MEDS: Folic Acid 1 MG TABLET PO SCH (08:39)
[2017-05-31] MEDS: Metoprolol XL (24 HR) Succ 25 MG TAB.ER.24H PO SCH (08:39)
[2017-05-31] MEDS: Vitamin B Complex/Vit C/Vit E 1 EACH TABLET PO SCH (08:39)
--- NOTE | 2017-05-31 11:56 | Discharge Summary ---
- NOTES TO OUTPATIENT PROVIDER Notes to Outpatient Provider: Recommend repeat CBC within 1 week Date of Encounter: 05/31/17 Time of Encounter: 11:53 - Discharge Diagnosis (1) COPD (chronic obstructive pulmonary disease) Priority: Primary Status: Acute Comments: Has known COPD. Symptomatic with chest congestion, wheezing and shortness of breath. CXR with evidence of COPD with possible superimposed acute bronchitis. Respiratory status and presenting symptoms improved with IV Levaquin and steroids and breathing treatment. Discharge home on Levaquin (to complete a 7 day course), steroid and bronchodilators. Follow-uo PCP within 1-2 weeks. Qualifiers: COPD type: unspecified COPD Qualified Code(s): J44.9 - Chronic obstructive pulmonary disease, unspecified (2) Influenza A Priority: Primary Status: Acute Comments: Rapid flu swab positive for influenza A. Cont Tamiflu for 5 day course. (3) CHF (congestive heart failure) Priority: Primary Status: Acute Comments: per hx. 05/30/17 TTE with EF 55% which has improved from 06/2016 TTE. BNP 660, CXR with a small right-sided pleural effusion. He was diuresed with IV Lasix and was down 5 pounds at time of discharge. Continue home Lasix. Educated on low sodium diet, monitoring weight and fluid restriction. Recommend follow-up with PCP within 1-2 weeks. Qualifiers: Qualified Code(s): I50.23 - Acute on chronic systolic (congestive) heart failure (4) Pancytopenia Priority: Primary Status: Acute Comments: With leukopenia, anemia and pancytopenia. Baseline appears to be normal. Etiology unknown. No known malignancy. Peripheral blood smear with normal morphologies of leukocytes, Retzer sites and platelets. Possibly secondary to viral illness with influenza. Repeat CBC improved. Recommend follow-up with PCP within one week. (5) Dementia Priority: Secondary Status: Chronic Comments: per hx. Mentation at baseline. Cont home medications. Qualifiers: Dementia type: vascular dementia Dementia behavioral disturbance: without behavioral disturbance Qualified Code(s): F01.50 - Vascular dementia without behavioral disturbance (6) Atrial fibrillation Priority: Secondary Status: Chronic Comments: per hx. prior history of being on Pradaxa but this was stopped due to GI bleed. Previously evaluated by cardiology who noted elevated CHADS-VASc score however poor anticoagulation candidate due to anemia and prior GI bleed. Continue ASA, BB. Qualifiers: Atrial fibrillation type: persistent Qualified Code(s): I48.1 - Persistent atrial fibrillation Hospital course: Mr. Figueroa is a 86 year old male with past medical history COPD, CHF and dementia who presented to [facility] on 05/29/2017 with complaints of shortness of breath. He was found to have influenza with an acute COPD and CHF exacerbation. Symptoms significantly improved with IV ATB, steroids, Tamiflu and IV Lasix. He was discharged home in stable condition with outpatient follow -up. Please see assessment and plan for further details. Discharge discussed with: patient - Time Spent with Patient Total time spent providing and/or coordinating discharge services: Less than 30 minutes - Discharge Medications Prescriptions: Levofloxacin [Levaquin] 500 mg PO DAILY #5 tablet Oseltamivir Phosphate [Tamiflu] 30 mg PO BID #8 capsule predniSONE [PredniSONE] 40 mg PO DAILY #10 tablet Home Medications: Lisinopril [Zestril] 10 mg PO DAILY 06/10/16 [History] Potassium Chloride [K-Tab ER] 20 meq PO DAILY 06/10/16 [History] Aspirin 81 mg PO DAILY #30 tab.chew 06/14/16 [Rx] Furosemide [Lasix] 20 mg PO BID #30 tablet 06/14/16 [Rx] Albuterol Sulfate [Ventolin Hfa] 2 puff IH Q4H PRN 05/29/17 [History] Atorvastatin Calcium [Lipitor] 20 mg PO HS 05/29/17 [History] Donepezil [Aricept] 10 mg PO HS 05/29/17 [History] Metoprolol XL (24 HR) Succ [Toprol Xl] 25 mg PO BID 05/29/17 [History] Omeprazole [PriLOSEC] 40 mg PO BID 05/29/17 [History] Levofloxacin [Levaquin] 500 mg PO DAILY #5 tablet 05/31/17 [Rx] Oseltamivir Phosphate [Tamiflu] 30 mg PO BID #8 capsule 05/31/17 [Rx] predniSONE [PredniSONE] 40 mg PO DAILY #10 tablet 05/31/17 [Rx] Allergies/Adverse Reactions: 3 Allergy/AdvReac Type Severity Reaction Status Date / Time No Known Allergies Allergy Verified 06/10/16 04:59 Date of admission: 05/29/17 17:43 Primary care physician: Osito Castillo Jr, MD Consults: 05/30/17 11:05 Consult to Physical Therapy [CONS] Routine Comment: Evaluate, develop and implement POC Reason for Consult: may need SNF OT [Consult to Occupational Therapy] [CONS] Routine Comment: Evaluate, develop and implement POC Reason for Consult: may need SNF 05/30/17 11:45 Consult to Net Technical Architect [CONS] Routine Reason for SW Consult: Possible placement. Discharging clinician: Desirae Gonzales Anticipated date of discharge: 05/31/17 - Constitutional Vitals: Temp Pulse Resp BP Pulse Ox 98.6 F 81 16 170/76 94 05/31/17 07:09 05/31/17 07:09 05/31/17 11:01 05/31/17 07:09 05/31/17 11:01 General appearance: Present: cooperative, A&O X 2, answers questions appropriately - Head Head exam: Present: atraumatic, normocephalic - Eye Eye exam: Present: PERRL, conjuntiva pink, sclera anicteric Pupils: Present: PERRL - Neck Neck exam general surgery: Present: supple, trachea midline. Absent: lymphadenopathy - Respiratory Respiratory exam: Present: CTAB. Absent: accessory muscle use, rales, rhonchi, wheezes - Cardiovascular Cardiovascular exam: Present: RRR, +S1, +S2. Absent: diastolic murmur, gallop, rubs, systolic murmur - GI/Abdominal GI/Abdominal exam: Present: normal bowel sounds, soft, no peritoneal signs. Absent: distended, tenderness - Extremities Exam Extremities exam: Present: warm, radial pulses palpable and symmetrical. Absent : calf tenderness, cyanotic, pedal edema - Neurological Exam Neurological exam: Present: CN II-XII intact, oriented X3, no focal deficits. Absent: pronater drift, facial droop, speech deficit - Skin Skin exam: Present: dry, intact - Patient Status Disposition: Home, Self-Care Condition: Good Functional capacity at discharge: uses cane/walker Overall status at discharge: patient is progressing back to baseline - Discharge Instructions Instructions: Levofloxacin (By mouth), Oseltamivir (By mouth), Prednisone (By mouth), Influenza (DC), Heart Failure (DC) Follow Up With: Osito Castillo Jr, MD [Primary Care Provider] - (Please call your primary care doctor on Friday to make a follow-up appointment within 1 week)
[2017-05-31 12:03] VITALS: BP 152/71
== END 2017-05-31 14:34 | disposition home or self-care (01) | DRG 291 ==
LOC: EMEROO 14:26 → 3BNU 14:26
PROVIDERS: ADMIT Family Medicine; ATTEND Registered Nurse

== ENCOUNTER 2017-07-16 08:49 | Inpatient (IN) ==
[2017-07-16] MEDS ORDERED: Pantoprazole 80 MG in 0.9 % Sodium Chloride 50 ML IVPB ONE (08:56)
[2017-07-16] MEDS ORDERED: 0.9 % Sodium Chloride 1,000 ML IVC ONE (08:56)
--- NOTE | 2017-07-16 08:59 | Emergency Department Note ---
Disposition Clinical Impression: Lower gastrointestinal hemorrhage Anemia Qualifiers: Anemia type: unspecified type Qualified Code(s): D64.9 - Anemia, unspecified Disposition: Admitted As Inpatient Condition: Fair General Adult HPI - General Stated complaint: Gi Bleed Time Seen by Provider: 07/16/17 08:52 Nursing Notes Reviewed: Yes Vital Signs Reviewed: Yes - Related Data Home Medications Medication Instructions Recorded Confirmed Lisinopril [Zestril] 10 mg PO DAILY 06/10/16 07/16/17 Potassium Chloride [K-Tab ER] 20 meq PO DAILY 06/10/16 07/16/17 Atorvastatin Calcium [Lipitor] 20 mg PO HS 05/29/17 07/16/17 Donepezil [Aricept] 10 mg PO HS 05/29/17 07/16/17 Metoprolol XL (24 HR) Succ [Toprol 25 mg PO BID 05/29/17 07/16/17 Xl] Omeprazole [PriLOSEC] 40 mg PO BID 05/29/17 07/16/17 Memantine HCl [Memantine HCl] 5 mg PO BID 07/16/17 07/16/17 Previous Rx's Medication Instructions Recorded Furosemide [Lasix] 20 mg PO BID #30 tablet 06/14/16 Allergies Allergy/AdvReac Type Severity Reaction Status Date / Time No Known Allergies Allergy Verified 07/16/17 10:02 Past Medical History - Past Medical History Medical history: Reports: atrial fibrillation, CHF, COPD, dementia, hyperlipidemia, hypertension, myocardial infarction, other Surgical history: Reports: no surgical history Psychiatric history: Reports: no psych history - Social History Smoking Status: Never smoker Smokeless Tobacco Status: No Alcohol use: Reports: occasionally Drug use: Reports: none Course Vital Signs Temperature 97.9 F 07/16/17 08:53 Pulse Rate 112 07/16/17 08:53 Respiratory Rate 22 07/16/17 08:53 Blood Pressure 145/100 07/16/17 08:53 O2 Sat by Pulse Oximetry 100 07/16/17 08:53 Temperature 97.6 F 07/16/17 11:40 Pulse Rate 101 07/16/17 11:40 Respiratory Rate 21 07/16/17 11:40 Blood Pressure 150/76 07/16/17 11:40 O2 Sat by Pulse Oximetry 100 07/16/17 11:40 Oxygen Delivery Oxygen Delivery Nasal Cannula Medical Decision Making - [facility] Narrative Medical decision making narrative: This documentation is done with the assistance of Dragon dictation. Despite efforts made to ensure accuracy, there may be inaccuracies in bone glue maker or spelling and typographical errors. 0920 hours: Spoke with GI they will see the patient. They had scoped him in the past and a duodenal ulcer. Waiting on labs blood and IV fluids are started. 0944 hrs. We will order transfusion for him as he has a hemoglobin 6.5. He said he does not have any abdominal pain this time. We have talked with admitting to get an ICU bed for him. Chest X-Ray 07/16/17 08:56 IMPRESSION: 1. Stable small right pleural effusion, with mild right basilar atelectasis. 2. Stable cardiomegaly. D/ / Javier White MD / Javier White MD Interpreting Provider: Javier White MD 0945 hrs.: Lab called with a low potassium of 2.5. So we went ahead and ordered IV potassium. Reviewing through his labs in the past his hemoglobin has always been low it does look like it ever gets above 10-1/2. It appears he may have had a transfusion back in June year ago is his hemoglobin was low then also looks like that is when he had his endoscopy that showed duodenal ulcer. We will speak to the hooker laster to see if they will admit him into the ICU. Gastroenterology is consulted. 1000 hrs.: GI is here for evaluation. Waiting on bed placement for ICU. 1030 hrs.: ICU team is coming to see the patient in the emergency department. They are in agreement and labs unit and then when a bed opens up in the ICU that will move him over to there. Patient's in agreement with this plan. - Lab Data Result diagrams: 07/16/17 09:09 07/16/17 09:09 Lab Results 07/16/17 07/16/17 07/16/17 Range/Units 09:09 09:09 09:09 WBC 6.5 (4.3-11.1) K/mcL RBC 2.18 L (4.19-5.50) M/mcL Hgb 6.5 L (12.9-16.9) g/dL Hct 20.0 L (37.5-50.1) % MCV 91.7 (83.0-100.0) fL MCH 29.8 (28.0-33.3) pg MCHC 32.5 (31.6-35.5) g/dL RDW 19.8 H (11.5-14.5) % Plt Count 134 L (140-400) K/mcL MPV 10.1 (9.4-12.4) fL Immature Gran % 0.5 (0-4) % Seg Neutrophils % 87.0 % Lymphocytes % 5.5 % Monocytes % 6.5 % Eosinophils % 0.3 % Basophils % 0.2 % Neutrophils # 5.7 (1.6-8.9) K/mcL Lymphocytes # 0.4 L (0.6-4.6) K/mcL Monocytes # 0.4 (0.0-1.3) K/mcL Eosinophils # 0.0 (0.0-0.6) K/mcL Basophils # 0.0 (0.0-0.2) K/mcL PT 15.9 H (9.4-12.1) Seconds INR 1.5 APTT 18.8 L (26.0-36.0) Seconds Sodium 138 (136-145) mEq/L Potassium 2.4 L* (3.5-5.1) mEq/L Chloride 90 L (98-107) mEq/L Carbon Dioxide 39 H (23-29) mEq/L BUN 14 (8-23) mg/dL Creatinine 0.99 (0.70-1.30) mg/dL Est GFR ( Amer) > 60 (> 60) Est GFR (Non-Af Amer) > 60 (> 60) BUN/Creatinine Ratio 14 (6-26) Glucose 155 H (70-105) mg/dL Calculated Osmolality 290 (280-300) Calcium 7.7 L (8.6-10.3) mg/dL Total Bilirubin 1.6 H (0.3-1.0) mg/dL AST 15 (13-39) Units/L ALT 4 L (7-52) Units/L Alkaline Phosphatase 38 (34-104) Units/L Serum Total Protein 4.6 L (6.4-8.9) g/dL Albumin 3.1 L (3.5-5.7) g/dL Globulin 1.5 L (2.4-3.5) g/dL Albumin/Globulin Ratio 2.1 (1.1-2.2) Blood Type Antibody Screen Crossmatch 07/16/17 Range/Units 09:09 WBC (4.3-11.1) K/mcL RBC (4.19-5.50) M/mcL Hgb (12.9-16.9) g/dL Hct (37.5-50.1) % MCV (83.0-100.0) fL MCH (28.0-33.3) pg MCHC (31.6-35.5) g/dL RDW (11.5-14.5) % Plt Count (140-400) K/mcL MPV (9.4-12.4) fL Immature Gran % (0-4) % Seg Neutrophils % % Lymphocytes % % Monocytes % % Eosinophils % % Basophils % % Neutrophils # (1.6-8.9) K/mcL Lymphocytes # (0.6-4.6) K/mcL Monocytes # (0.0-1.3) K/mcL Eosinophils # (0.0-0.6) K/mcL Basophils # (0.0-0.2) K/mcL PT (9.4-12.1) Seconds INR APTT (26.0-36.0) Seconds Sodium (136-145) mEq/L Potassium (3.5-5.1) mEq/L Chloride (98-107) mEq/L Carbon Dioxide (23-29) mEq/L BUN (8-23) mg/dL Creatinine (0.70-1.30) mg/dL Est GFR ( Amer) (> 60) Est GFR (Non-Af Amer) (> 60) BUN/Creatinine Ratio (6-26) Glucose (70-105) mg/dL Calculated Osmolality (280-300) Calcium (8.6-10.3) mg/dL Total Bilirubin (0.3-1.0) mg/dL AST (13-39) Units/L ALT (7-52) Units/L Alkaline Phosphatase (34-104) Units/L Serum Total Protein (6.4-8.9) g/dL Albumin (3.5-5.7) g/dL Globulin (2.4-3.5) g/dL Albumin/Globulin Ratio (1.1-2.2) Blood Type A POSITIVE Antibody Screen NEGATIVE Crossmatch See Detail Critical Care Time Critical Care Time: Yes Total Critical Care Time: 50 Attestation: Critical care time is excluding any separately billable procedures. Attestation Statement - Attestation Attestation: I have personally performed a face to face evaluation on this patient. I have reviewed and agree with the care plan. History and Exam by me shows: Patient was seen on arrival with the physician's medical assistant secretary Sruthi Cisneros. I agree with her evaluation and management plan supervise care the patient's stay. Patient presents with a GI bleed. No history of this in the past no abdominal pain. Does take aspirin. No other blood thinners. Large amount of blood seen. Pressures 100. We will place an IV consult GI lab work and reassess. No history of GI bleeds in the past according to him.
--- NOTE | 2017-07-16 09:09 | Emergency Department Note ---
Disposition Clinical Impression: Lower gastrointestinal hemorrhage, Hypokalemia Anemia Qualifiers: Anemia type: unspecified type Qualified Code(s): D64.9 - Anemia, unspecified Disposition: Admitted As Inpatient Condition: Serious Referrals: Osito Castillo Jr, MD [Primary Care Provider] - Forms: ED Satisfaction Letter GI Bleed HPI - General Stated complaint: Gi Bleed Time Seen by Provider: 07/16/17 08:52 Source: patient, EMS Mode of arrival: EMS Limitations: no limitations Nursing Notes Reviewed: Yes Vital Signs Reviewed: Yes - History of Present Illness Pt Subjective Complaint: melena Onset (ago): 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 He was seen there yesterday for near syncope. ) Treatments Prior to Arrival: none - Related Data Home Medications Medication Instructions Recorded Confirmed Lisinopril [Zestril] 10 mg PO DAILY 06/10/16 07/16/17 Potassium Chloride [K-Tab ER] 20 meq PO DAILY 06/10/16 07/16/17 Atorvastatin Calcium [Lipitor] 20 mg PO HS 05/29/17 07/16/17 Donepezil [Aricept] 10 mg PO HS 05/29/17 07/16/17 Metoprolol XL (24 HR) Succ [Toprol 25 mg PO BID 05/29/17 07/16/17 Xl] Omeprazole [PriLOSEC] 40 mg PO BID 05/29/17 07/16/17 Memantine HCl [Memantine HCl] 5 mg PO BID 07/16/17 07/16/17 Previous Rx's Medication Instructions Recorded Furosemide [Lasix] 20 mg PO BID #30 tablet 06/14/16 Allergies Allergy/AdvReac Type Severity Reaction Status Date / Time No Known Allergies Allergy Verified 07/16/17 10:02 All systems ED: reviewed and negative except as stated. Review of Systems: As Per HPI Constitutional: Denies: fever, chills, weakness Eyes: Denies: vision change ENT ED: Denies: congestion, dysphagia Cardiovascular: Reports: syncope (Patient states, "Maybe, I'm not sure, I just know that I went down and hit the tub on the way."). Denies: chest pain, palpitations, dyspnea on exertion, orthopnea Respiratory: Denies: cough, dyspnea, wheezes, hemoptysis Gastrointestinal: Reports: diarrhea, melena. Denies: abdominal pain, nausea, vomiting Genitourinary: Denies: dysuria Musculoskeletal: Denies: back pain, neck pain, joint swelling, arthralgia Neurological: Denies: headache, weakness, numbness, paresthesias, confusion, vertigo Hematological/Lymphatic: Denies: easy bleeding, easy bruising Past Medical History - Past Medical History Attestation: Yes The following information was validated with the patient. Source: patient, old records reviewed Medical history: Reports: atrial fibrillation, CHF, COPD, dementia, hyperlipidemia, hypertension, myocardial infarction, other Surgical history: Reports: no surgical history Psychiatric history: Reports: no psych history - Social History Smoking Status: Never smoker Smokeless Tobacco Status: No Alcohol use: Reports: occasionally Drug use: Reports: none Physical Exam - General Limitations: no limitations General appearance: alert, in no apparent distress - Head Head exam: atraumatic, normocephalic, normal inspection - Eye Eye exam: Present: normal appearance, PERRL. Absent: scleral icterus, conjunctival injection, periorbital swelling - ENT ENT exam: normal exam, normal oropharynx, mucous membranes moist - Neck Neck exam: Present: full ROM, trachea midline. Absent: tenderness - Expanded Neck Exam Neck exam focused ED: Present: other (Contusion with ecchymosis left inferior mandible and submental area extending to the left anterior neck. No tenderness , no edema. ). Absent: midline tenderness, paraspinal tenderness, tenderness ( other), anterior neck swelling, JVD, carotid bruit - Chest Chest inspection: Present: normal inspection, symmetric chest wall rise. Absent : tenderness - Respiratory Respiratory exam: Present: normal lung sounds bilaterally. Absent: respiratory distress - Cardiovascular Cardiovascular exam: Present: tachycardia, irregular rhythm - Abdominal Exam Abdominal exam: Present: soft, Non-Tender, diminished bowel sounds. Absent: distention, guarding, rebound, rigidity, organomegaly, mass, pulsatile mass - Extremities Exam Extremities exam: Present: full ROM, tenderness (Left hand and wrist - multiple contusions mild edema), normal capillary refill - Back Exam Back exam: Present: normal inspection. Absent: tenderness - Neurological Exam Neurological exam: Present: alert, oriented X3, CN II-XII intact - Psychiatric Psychiatric exam: Present: normal affect, normal mood - Skin Skin exam: Present: warm, dry, intact, normal color Course Course Narrative: Patient was brought in by squad for evaluation of upper GI bleed. The paramedics called after the patient fell. It is unclear whether he had a syncopal episode or mechanical fall. Patient is very pleasant and cooperative but is a poor historian. Most likely secondary to dementia. He denies pain anywhere including the abdomen. He is not sure if he lost consciousness, but states that he remembers falling and remembers hitting the bathtub. He had a fall yesterday and injured his left hand. He was seen at urgent care for this. He has had black colored diarrhea several times today. He denies previous history of GI bleed. He has a normal blood pressure, is tachycardic with history of A. fib and currently has an irregularly irregular rhythm. He is hypoxic at 92% on 2 L. He is on oxygen at home. He denies dyspnea, chest pain , abdominal pain, dizziness, vertigo, paresthesias or weakness, back or neck pain, headache or vision changes. He essentially has no complaints and keeps saying, "I feel fine." Paramedics describe a significant amount of mellanic stool. Two large-bore IVs fluids and labs have been ordered. Case was discussed with Dr. Ortiz. He has had [id number] time with the patient and agrees with the assessment and plan. Dr. Blum has been paged as he is on-call for endoscopy. - Reevaluation(s) Reevaluation #1: Patient's labs show significant anemia and hypokalemia. Potassium was ordered by Dr. Mendoza. Patient's vitals are stable. He still has no complaints and still has GCS of 15. Case was discussed with Dr. Carpio , who is taking call for the cupboard builder, Dr. Sylvester. Patient has been accepted to the ICU. Time: 10:00 - Consultations Consultation #1: Discussed the case with Dr. Blum. Explained to him that the patient has hx of "Large duodenal ulcer" per endoscopy report from 06/21 (done [address] Blum) and that the In Class Special Education Teacher reports seeing a significant amount of blood loss after / during several bowel movements. Patient also had a near syncopal episode yesterday and probable syncopal episode today. Dr. Blum asked about Lab results. Explained to him that we do not have any results yet, but that the patient is tachycardic and I am concerned about him. Dr. Blum states that he will have his HAND WORKER see the patient soon and to start a PPI drip. (This has already been ordered) Time: 08:57 Vital Signs Temperature 97.9 F 07/16/17 08:53 Pulse Rate 112 07/16/17 08:53 Respiratory Rate 22 07/16/17 08:53 Blood Pressure 145/100 07/16/17 08:53 O2 Sat by Pulse Oximetry 100 07/16/17 08:53 Temperature 98.1 F 07/16/17 17:10 Pulse Rate 114 07/16/17 17:10 Respiratory Rate 22 07/16/17 17:10 Blood Pressure 162/68 07/16/17 17:00 O2 Sat by Pulse Oximetry 100 07/16/17 17:10 Oxygen Delivery Oxygen Delivery Nasal Cannula GI Bleed - Medical Records Medical records reviewed: Yes I reviewed the patient's medical records. - Lab Data Lab results reviewed: Yes I reviewed the patient's lab results. Lab results narrative: Laboratory Last Values WBC 6.5 K/mcL (4.3-11.1) 07/16/17 09:09 RBC 2.18 M/mcL (4.19-5.50) L 07/16/17 09:09 Hgb 7.0 g/dL (12.9-16.9) L 07/16/17 17:28 Hct 21.2 % (37.5-50.1) L 07/16/17 17:28 MCV 91.7 fL (83.0-100.0) 07/16/17 09:09 MCH 29.8 pg (28.0-33.3) 07/16/17 09:09 MCHC 32.5 g/dL (31.6-35.5) 07/16/17 09:09 RDW 19.8 % (11.5-14.5) H 07/16/17 09:09 Plt Count 134 K/mcL (140-400) L 07/16/17 09:09 MPV 10.1 fL (9.4-12.4) 07/16/17 09:09 Immature Gran % 0.5 % (0-4) 07/16/17 09:09 Seg Neutrophils % 87.0 % 07/16/17 09:09 Lymphocytes % 5.5 % 07/16/17 09:09 Monocytes % 6.5 % 07/16/17 09:09 Eosinophils % 0.3 % 07/16/17 09:09 Basophils % 0.2 % 07/16/17 09:09 Neutrophils # 5.7 K/mcL (1.6-8.9) 07/16/17 09:09 Lymphocytes # 0.4 K/mcL (0.6-4.6) L 07/16/17 09:09 Monocytes # 0.4 K/mcL (0.0-1.3) 07/16/17 09:09 Eosinophils # 0.0 K/mcL (0.0-0.6) 07/16/17 09:09 Basophils # 0.0 K/mcL (0.0-0.2) 07/16/17 09:09 PT 15.9 Seconds (9.4-12.1) H 07/16/17 09:09 INR 1.5 07/16/17 09:09 APTT 18.8 Seconds (26.0-36.0) L 07/16/17 09:09 Sodium 138 mEq/L (136-145) 07/16/17 09:09 Potassium 2.4 mEq/L (3.5-5.1) L* 07/16/17 09:09 Chloride 90 mEq/L (98-107) L 07/16/17 09:09 Carbon Dioxide 39 mEq/L (23-29) H 07/16/17 09:09 BUN 14 mg/dL (8-23) 07/16/17 09:09 Creatinine 0.99 mg/dL (0.70-1.30) 07/16/17 09:09 Est GFR ( Amer) > 60 (> 60) 07/16/17 09:09 Est GFR (Non-Af Amer) > 60 (> 60) 07/16/17 09:09 BUN/Creatinine Ratio 14 (6-26) 07/16/17 09:09 Glucose 155 mg/dL (70-105) H 07/16/17 09:09 Calculated Osmolality 290 (280-300) 07/16/17 09:09 Calcium 7.7 mg/dL (8.6-10.3) L 07/16/17 09:09 Total Bilirubin 1.6 mg/dL (0.3-1.0) H 07/16/17 09:09 AST 15 Units/L (13-39) 07/16/17 09:09 ALT 4 Units/L (7-52) L 07/16/17 09:09 Alkaline Phosphatase 38 Units/L (34-104) 07/16/17 09:09 Serum Total Protein 4.6 g/dL (6.4-8.9) L 07/16/17 09:09 Albumin 3.1 g/dL (3.5-5.7) L 07/16/17 09:09 Globulin 1.5 g/dL (2.4-3.5) L 07/16/17 09:09 Albumin/Globulin Ratio 2.1 (1.1-2.2) 07/16/17 09:09 Blood Type A POSITIVE 07/16/17 09:09 Antibody Screen NEGATIVE 07/16/17 09:09 Crossmatch See Detail 07/16/17 09:09 Result diagrams: 07/16/17 17:28 07/16/17 09:09 Lab Results 07/16/17 07/16/17 07/16/17 Range/Units 09:09 09:09 09:09 WBC 6.5 (4.3-11.1) K/mcL RBC 2.18 L (4.19-5.50) M/mcL Hgb 6.5 L (12.9-16.9) g/dL Hct 20.0 L (37.5-50.1) % MCV 91.7 (83.0-100.0) fL MCH 29.8 (28.0-33.3) pg MCHC 32.5 (31.6-35.5) g/dL RDW 19.8 H (11.5-14.5) % Plt Count 134 L (140-400) K/mcL MPV 10.1 (9.4-12.4) fL Immature Gran % 0.5 (0-4) % Seg Neutrophils % 87.0 % Lymphocytes % 5.5 % Monocytes % 6.5 % Eosinophils % 0.3 % Basophils % 0.2 % Neutrophils # 5.7 (1.6-8.9) K/mcL Lymphocytes # 0.4 L (0.6-4.6) K/mcL Monocytes # 0.4 (0.0-1.3) K/mcL Eosinophils # 0.0 (0.0-0.6) K/mcL Basophils # 0.0 (0.0-0.2) K/mcL PT 15.9 H (9.4-12.1) Seconds INR 1.5 APTT 18.8 L (26.0-36.0) Seconds Sodium 138 (136-145) mEq/L Potassium 2.4 L* (3.5-5.1) mEq/L Chloride 90 L (98-107) mEq/L Carbon Dioxide 39 H (23-29) mEq/L BUN 14 (8-23) mg/dL Creatinine 0.99 (0.70-1.30) mg/dL Est GFR ( Amer) > 60 (> 60) Est GFR (Non-Af Amer) > 60 (> 60) BUN/Creatinine Ratio 14 (6-26) Glucose 155 H (70-105) mg/dL Calculated Osmolality 290 (280-300) Calcium 7.7 L (8.6-10.3) mg/dL Total Bilirubin 1.6 H (0.3-1.0) mg/dL AST 15 (13-39) Units/L ALT 4 L (7-52) Units/L Alkaline Phosphatase 38 (34-104) Units/L Serum Total Protein 4.6 L (6.4-8.9) g/dL Albumin 3.1 L (3.5-5.7) g/dL Globulin 1.5 L (2.4-3.5) g/dL Albumin/Globulin Ratio 2.1 (1.1-2.2) Blood Type Antibody Screen Crossmatch 07/16/17 07/16/17 Range/Units 09:09 17:28 WBC (4.3-11.1) K/mcL RBC (4.19-5.50) M/mcL Hgb 7.0 L (12.9-16.9) g/dL Hct 21.2 L (37.5-50.1) % MCV (83.0-100.0) fL MCH (28.0-33.3) pg MCHC (31.6-35.5) g/dL RDW (11.5-14.5) % Plt Count (140-400) K/mcL MPV (9.4-12.4) fL Immature Gran % (0-4) % Seg Neutrophils % % Lymphocytes % % Monocytes % % Eosinophils % % Basophils % % Neutrophils # (1.6-8.9) K/mcL Lymphocytes # (0.6-4.6) K/mcL Monocytes # (0.0-1.3) K/mcL Eosinophils # (0.0-0.6) K/mcL Basophils # (0.0-0.2) K/mcL PT (9.4-12.1) Seconds INR APTT (26.0-36.0) Seconds Sodium (136-145) mEq/L Potassium (3.5-5.1) mEq/L Chloride (98-107) mEq/L Carbon Dioxide (23-29) mEq/L BUN (8-23) mg/dL Creatinine (0.70-1.30) mg/dL Est GFR ( Amer) (> 60) Est GFR (Non-Af Amer) (> 60) BUN/Creatinine Ratio (6-26) Glucose (70-105) mg/dL Calculated Osmolality (280-300) Calcium (8.6-10.3) mg/dL Total Bilirubin (0.3-1.0) mg/dL AST (13-39) Units/L ALT (7-52) Units/L Alkaline Phosphatase (34-104) Units/L Serum Total Protein (6.4-8.9) g/dL Albumin (3.5-5.7) g/dL Globulin (2.4-3.5) g/dL Albumin/Globulin Ratio (1.1-2.2) Blood Type A POSITIVE Antibody Screen NEGATIVE Crossmatch See Detail - Radiology Data Radiology results reviewed: Yes I reviewed the patient's radiology results. Chest X-Ray 07/16/17 08:56 IMPRESSION: 1. Stable small right pleural effusion with mild right basilar atelectasis. 2. Stable cardiomegaly. D/ / 07/16/2017 09:58:21 Javier White MD / lisandra Interpreting Provider: Javier White MD - EKG Data EKG attestation: Yes I reviewed and interpreted this EKG. Rate: tachycardia Rhythm: A.Fib When compared to previous EKG there are: no significant changes Interpretation: unchanged when compared to prior tracing (date), nonspecific ST- T wave changes
[2017-07-16 09:25] LABS: Basophils % 0.2 %; Eosinophils % 0.3 %; Immature Granulocytes % 0.5 % (0-4); Lymphocytes # 0.4 K/mcL (0.6-4.6); Lymphocytes % 5.5 %; Mean Corpuscular HGB Conc 32.5 g/dL (31.6-35.5); Mean Corpuscular Hemoglobin 29.8 pg (28.0-33.3); Mean Corpuscular Volume 91.7 fL (83.0-100.0); Mean Platelet Volume 10.1 fL (9.4-12.4); Monocytes # 0.4 K/mcL (0.0-1.3); Monocytes % 6.5 %; Neutrophils # 5.7 K/mcL (1.6-8.9); Platelet Count 134 K/mcL (140-400); Red Blood Count 2.18 M/mcL (4.19-5.50); Red Cell Distribution Width 19.8 % (11.5-14.5)
[2017-07-16 09:35] LABS: INR 1.5; Prothrombin Time 15.9 Seconds (9.4-12.1)
[2017-07-16 09:41] LABS: Activated Partial Thrombo Time 18.8 Seconds (26.0-36.0)
[2017-07-16 09:42] LABS: Hemoglobin 6.5 g/dL (12.9-16.9)
[2017-07-16 09:48] LABS: Alanine Aminotransferase 4 Units/L (7-52); Albumin 3.1 g/dL (3.5-5.7); Albumin/Globulin Ratio 2.1 (1.1-2.2); Alkaline Phosphatase 38 Units/L (34-104); Aspartate Amino Transferase 15 Units/L (13-39); BUN/Creatinine Ratio 14 (6-26); Bilirubin,Total 1.6 mg/dL (0.3-1.0); Blood Urea Nitrogen 14 mg/dL (8-23); Calcium 7.7 mg/dL (8.6-10.3); Carbon Dioxide 39 mEq/L (23-29); Chloride 90 mEq/L (98-107); Globulin 1.5 g/dL (2.4-3.5); Glucose 155 mg/dL (70-105); Osmolality,Calculated 290 (280-300); Potassium 2.4 mEq/L (3.5-5.1); Sodium 138 mEq/L (136-145); Total Protein 4.6 g/dL (6.4-8.9); eGFR For African Americans > 60 (> 60); eGFR For Non-African Americans > 60 (> 60)
[2017-07-16] MEDS ORDERED: 0.9 % Sodium Chloride 250 ML ONE ×2 (11:03→21:45)
--- NOTE | 2017-07-16 11:30 | Gastroenterology Consult Note ---
<Javier Paris - Last Filed: 07/16/17 11:27> Date of Encounter: 07/16/17 Time of Encounter: 10:05 - Assessment and plan (1) Melena Current Visit: Yes Status: Acute Assessment and plan: Keep patient NPO. Plan for EGD today to r/o esophagitis, gastritis, duodenitis, PUD, MW tear, or AVM. (2) Anemia Current Visit: No Status: Acute Assessment and plan: Hgb on arrival was 6.5 and 4 units PRBC have been ordered. Continue to monitor CBC and transfuse PRBC as needed. Continue Protonix drip. Plan for EGD today to r/o esophagitis, gastritis, duodenitis, PUD, MW tear, or AVM. Keep patient NPO. Qualifiers: Anemia type: unspecified type Qualified Code(s): D64.9 - Anemia, unspecified (3) History of duodenal ulcer Current Visit: Yes Status: Acute - Time Spent With Patient Total time spent is greater than 50% in coordination of care (as documented) at patient's floor/unit and/or counseling patient: GI History of Present Illness - Data of Consult Patient: known to practice within the last 3 years Consult date: 07/16/17 Requesting Physician: Fan Ambrocio MD - Consult Narrative Reason for consult: GI bleed History of present illness: Mr. Figueroa is a 86 year old male with PMHx of of dementia, HLD, HTN, Afib, diastolic heart failure who was brought to the ED via EMS due to melena and syncope. Per EMS, there was approximately 500cc of melena with small amount of stool. Hgb on arrival was 6.5 and 4 units PRBC have been ordered. Pt denied any fever, chills, chest pain, abdominal pain, nausea, vomiting, constipation, or hematochezia. We have been consulted to evaluate his anemia. pt had EGD 06/2016 with large duodenal bulb ulcer. He has been started on Protonix drip. Procedures: EGD 10/02/2016 Dr. Blum: Medium sized diverticulum in bulb, no ulcer noted. EGD 06/10/2016 Dr. Blum: Very large duodenal bulb ulcer with extention into pyloric channel, chronic gastritis. Capsule endoscopy 05/04/2013 unremarkable small bowel capsule study. Colonoscopy 03/16/2013 Dr. Castillo diverticulosis noted. EGD 03/16/2013 Dr. Castillo chronic gastritis. NSAIDs: ASA Anticoagulation: None Past Med Surg Social Fam HX - Past Medical History Medical history: atrial fibrillation, CHF, COPD, dementia, hyperlipidemia, hypertension, myocardial infarction, other Psychiatric history: no psych history - Past Surgical History Surgical History: no surgical history - Social History Smoking Status: Never smoker Smokeless Tobacco Status: No Alcohol use: occasionally Drug use: none - Gastrointestinal Gastrointestinal: Present: as per HPI - Constitutional Constitutional: as per HPI - EENT Eyes: as per HPI Ears: Present: as per HPI Nose, mouth and throat: Present: as per HPI - Cardiovascular Cardiovascular ROS: Present: as per HPI - Respiratory Respiratory IM: Present: as per HPI - Genitourinary Genitourinary: Absent: change in color, Urinary frequency - Neurological ROS Neurological GI: Present: as per HPI - Hematologic/Lymphatic Hematologic/Lymphatic pediatric: Present: as per HPI - Musculoskeletal Musculoskeletal ROS GI: Present: as per HPI - Integumentary Integumentary GI: Present: as per HPI - Psychiatric ROS Psychiatric GI: Present: as per HPI - Endocrine Endocrine IM: Present: as per HPI - Constitutional Vitals: Temp Pulse Resp BP Pulse Ox 98 F 101 21 155/69 95 07/16/17 11:25 07/16/17 11:25 07/16/17 11:25 07/16/17 11:25 07/16/17 11:25 General appearance: Present: cooperative, A&O X 3, no acute distress, answers questions appropriately - Head Head exam: Present: atraumatic, normocephalic - Eye Eye exam: Present: normal appearance, sclera anicteric - ENT ENT exam: Present: mucous membranes dry - Neck Neck exam general surgery: Present: normal inspection, trachea midline - Respiratory Respiratory exam: Present: decreased breath sounds, CTAB - Cardiovascular Cardiovascular exam: Present: RRR, +S1, +S2 - GI/Abdominal GI/Abdominal exam: Present: soft, no peritoneal signs. Absent: distended, firm , guarding, tenderness - Rectal Rectal exam: Present: deferred - Extremities Exam Extremities exam: Present: warm - Neurological Exam Neurological exam: Present: no focal deficits - Psychiatric Psychiatric exam: Present: normal affect, normal mood - Skin Skin exam: Present: dry, intact, normal color, warm Results - Labs CBC & Chem 7: 07/16/17 09:09 07/16/17 09:09 Labs: Last Result Calcium 7.7 mg/dL (8.6-10.3) L 07/16/17 09:09 Entire Visit Hgb 6.5 g/dL (12.9-16.9) L 07/16/17 09:09 Hct 20.0 % (37.5-50.1) L 07/16/17 09:09 PT 15.9 Seconds (9.4-12.1) H 07/16/17 09:09 Total Bilirubin 1.6 mg/dL (0.3-1.0) H 07/16/17 09:09 AST 15 Units/L (13-39) 07/16/17 09:09 ALT 4 Units/L (7-52) L 07/16/17 09:09 - ABG ABG results: PT/INR, D-dimer PT 15.9 Seconds (9.4-12.1) H 07/16/17 09:09 Consult Discharge Plan - Plan Referrals: Osito Castillo Jr, MD [Primary Care Provider] - <Ankita Blum - Last Filed: 07/16/17 17:37> Date of Encounter: 07/16/17 Time of Encounter: 14:55 - Time Spent With Patient Total time spent is greater than 50% in coordination of care (as documented) at patient's floor/unit and/or counseling patient: GI History of Present Illness - Data of Consult Requesting Physician: Guerita James MD - Consult Narrative History of present illness: Mr. Figueroa is a 86 year old male - Constitutional Vitals: Temp Pulse Resp BP Pulse Ox 98.1 F 114 22 162/68 100 07/16/17 17:10 07/16/17 17:10 07/16/17 17:10 07/16/17 17:00 07/16/17 17:10 Results - Labs CBC & Chem 7: 07/16/17 09:09 07/16/17 09:09 Labs: Last Result Calcium 7.7 mg/dL (8.6-10.3) L 07/16/17 09:09 Entire Visit Hgb 6.5 g/dL (12.9-16.9) L 07/16/17 09:09 Hct 20.0 % (37.5-50.1) L 07/16/17 09:09 PT 15.9 Seconds (9.4-12.1) H 07/16/17 09:09 Total Bilirubin 1.6 mg/dL (0.3-1.0) H 07/16/17 09:09 AST 15 Units/L (13-39) 07/16/17 09:09 ALT 4 Units/L (7-52) L 07/16/17 09:09 - ABG ABG results: PT/INR, D-dimer PT 15.9 Seconds (9.4-12.1) H 07/16/17 09:09 - Attending Attestation I have personally performed a face to face evaluation on this patient. I have reviewed and agree with the care plan. History and Exam by me shows: Pt seen. Pt with the massive lower GI bleeding that started the this morning. Does has a history of large duodenal ulcer before does not take any blood thinner. Recommendation: EGD in the OR to rule out recurrence of his duodenal ulcer. Meanwhile follow H&H . blood transfusion. Start PPI infusion.
[2017-07-16] MEDS ORDERED: Naloxone 0.4 MG/ML INJ IVP PRN (13:06)
--- NOTE | 2017-07-16 14:26 | Pulmonology History & Physical ---
<MickdeepaFan gutierrez M - Last Filed: 07/16/17 16:01> Date of Encounter: 07/16/17 History of Present Illness HPI: Mr. Figueroa is a 86 year old male Medications and Allergies Lisinopril [Zestril] 10 mg PO DAILY 06/10/16 [History] Potassium Chloride [K-Tab ER] 20 meq PO DAILY 06/10/16 [History] Furosemide [Lasix] 20 mg PO BID #30 tablet 06/14/16 [Rx] Atorvastatin Calcium [Lipitor] 20 mg PO HS 05/29/17 [History] Donepezil [Aricept] 10 mg PO HS 05/29/17 [History] Metoprolol XL (24 HR) Succ [Toprol Xl] 25 mg PO BID 05/29/17 [History] Omeprazole [PriLOSEC] 40 mg PO BID 05/29/17 [History] Memantine HCl [Memantine HCl] 5 mg PO BID 07/16/17 [History] 3 Allergy/AdvReac Type Severity Reaction Status Date / Time No Known Allergies Allergy Verified 07/16/17 10:02 All Systems: The remainder of the systems were reviewed and are negative Physical Examination Vital Signs: Vital Signs, Last 4 Hours Temp Pulse Resp BP Pulse Ox 07/16/17 15:17 98 F 110 16 176/77 95 07/16/17 15:12 98 F 110 16 149/85 97 Results - Laboratory Findings CBC and BMP: 07/16/17 09:09 07/16/17 09:09 PT/INR, D-dimer PT 15.9 Seconds (9.4-12.1) H 07/16/17 09:09 Abnormal lab findings: Abnormal lab results RBC 2.18 M/mcL (4.19-5.50) L 07/16/17 09:09 Hgb 6.5 g/dL (12.9-16.9) L 07/16/17 09:09 Hct 20.0 % (37.5-50.1) L 07/16/17 09:09 RDW 19.8 % (11.5-14.5) H 07/16/17 09:09 Plt Count 134 K/mcL (140-400) L 07/16/17 09:09 Lymphocytes # 0.4 K/mcL (0.6-4.6) L 07/16/17 09:09 PT 15.9 Seconds (9.4-12.1) H 07/16/17 09:09 APTT 18.8 Seconds (26.0-36.0) L 07/16/17 09:09 Potassium 2.4 mEq/L (3.5-5.1) L* 07/16/17 09:09 Chloride 90 mEq/L (98-107) L 07/16/17 09:09 Carbon Dioxide 39 mEq/L (23-29) H 07/16/17 09:09 Glucose 155 mg/dL (70-105) H 07/16/17 09:09 Calcium 7.7 mg/dL (8.6-10.3) L 07/16/17 09:09 Total Bilirubin 1.6 mg/dL (0.3-1.0) H 07/16/17 09:09 ALT 4 Units/L (7-52) L 07/16/17 09:09 Serum Total Protein 4.6 g/dL (6.4-8.9) L 07/16/17 09:09 Albumin 3.1 g/dL (3.5-5.7) L 07/16/17 09:09 Globulin 1.5 g/dL (2.4-3.5) L 07/16/17 09:09 - Attending Attestation I examined this patient and my medical decision-making was reviewed with the Resident Physician. I agree with the documented findings, disposition and treatment plan as described except to the extent set forth below. Patient seen and examined. I was called by the emergency room physician to evaluate this patient and admitted to ICU for the GI bleed. Labs, radiology, chart personally reviewed. Agree with resident's history and physical, assessment, plan with following comments: PARTICIPANT ADMINISTRATOR: Patient follows commands, patient has history of fall but his alert and oriented and denies any mental status change. Pulmonary: Acceptable oxygenation and ventilation Cardiovascular: Patient has underlying cardiovascular comorbidities and to receive blood transfusion GI: Nutrition per dietary and GI prophylaxis per routine. Patient was seen by gastroenterology for endoscopy. Heme: DVT prophylaxis per routine Renal; urine out put and renal funtion reviewed Endorcine: blood glucose is monitored Lines: all lines checked and no evidence of infections Skin: skin care to prevent pressure ulcers per nursing routine care Discussed with the family at the bedside. <Bin Cuevas - Last Filed: 07/16/17 16:32> Date of Encounter: 07/16/17 Time of Encounter: 14:26 Assessment and Plan (1) GI bleed Current visit: No Status: Acute Patient reports having a recent history of melena - Previous history of ulcers - EGD 06/10/2016: Very large duodenal bulb ulcer w/ extention into pyloric channel, chronic gastritis - Capsule endoscopy 05/04/2013 unremarkable small bowel capsule study - Colonoscopy 03/16/2013 Dr. Castillo diverticulosis noted - EGD 03/16/2013 Dr. Castillo chronic gastritis - NSAIDs: ASA - Anticoagulation: None Plan: - NPO diet - GI has been consulted - Plan for EGD today to r/o esophagitis, gastritis, duodenitis, PUD, MW tear, or AVM Qualifiers: GI bleed type/associated pathology: unspecified gastrointestinal hemorrhage type Qualified Code(s): K92.2 - Gastrointestinal hemorrhage, unspecified (2) Anemia Current visit: No Status: Acute Hgb on arrival was 6.5 - 4 units PRBC have been ordered - Continue to monitor CBC and transfuse PRBC as needed - EGD today to r/o esophagitis, gastritis, duodenitis, PUD, MW tear, or AVM - Keep patient NPO Qualifiers: Anemia type: unspecified type Qualified Code(s): D64.9 - Anemia, unspecified (3) Hypokalemia Current visit: No Status: Resolved - Patient had a low potassium on arrival at 2.5 - Replacement was ordered - Electrolyte protocol (4) Atrial fibrillation Current visit: No Status: Chronic Patient has a known history of atrial fibrillation - Currently tachycardic - Not currently on anticoagulation due to history of GI bleeds - Had previously been taking coumadin - Patient was taking ASA for a period after d/c coumadin - Denies having taken aspirin for some time Qualifiers: Atrial fibrillation type: persistent Qualified Code(s): I48.1 - Persistent atrial fibrillation (5) Hyperlipidemia Current visit: Yes Status: Acute - Lipitor 20 mg PO HS Qualifiers: Qualified Code(s): E78.5 - Hyperlipidemia, unspecified History of Present Illness Chief complaint: Syncope HPI: Mr. Figueroa is a 86 year old male with PMHx of of atrial fibrillation, CHF, COPD, dementia, HLD, HTN, [place], dementia, HLD, HTN, and diastolic heart failure who presented to [facility] ED via EMS with the chief complaint of melena and syncope. Reported that earlier in the day, he was in the bathroom and suddenly fell. Lost consciousness for a brief period of time. Reports a similar incident recently; hurt his wrist during that time. Denies having sustained any injuries during his fall. Per EMS, there was approximately 500cc of melena with small amount of stool. Patients Hb on arrival was 6.5. 4 units PRBC were ordered. Patient denied the presence of any fever, chills, chest pain, abdominal pain, nausea, vomiting, constipation, or hematochezia. Patient had EGD 06/2016 which demonstrated a large duodenal bulb ulcer. Protonix drip was started and GI was consulted. CXR demonstrated the following: Stable small right pleural effusion, with mild right basilar atelectasis, stable cardiomegaly. Patient was seen and examined at bedside in the ED. Patient states that he is feeling well. Reports briefly losing consciousness when he fell. Is unsure what caused his fall; unable to confirm weakness in his legs. Denied having balance issues or visual disturbances. Currently denies any dizziness, lightheadedness, abdominal pain, nausea, vomiting, fever, chills, or syncope. Patient is resting comfortably in bed and has no complaints at this time. Past Med Surg Social Fam HX - Past Medical History Medical history: atrial fibrillation, CHF, COPD, dementia, hyperlipidemia, hypertension, myocardial infarction, other Psychiatric history: no psych history - Past Surgical History Surgical History: no surgical history - Social History Smoking Status: Never smoker Smokeless Tobacco Status: No Alcohol use: occasionally Drug use: none All Systems: The remainder of the systems were reviewed and are negative - Constitutional Constitutional: no chills, no daytime sleepiness, no excessive sweating - EENT Nose, mouth and throat: no disequilibrium, no dizziness - Cardiovascular Cardiovascular: rapid heart rate, no chest pain, no chest pain at rest, no claudication, no diaphoresis, no dyspnea, no dyspnea on exertion, no radiating jaw, neck or arm pain, no palpitations - Respiratory Respiratory: no cough, no hemoptysis, no dyspnea on exertion, no wheezing - Gastrointestinal Gastrointestinal: melena, no nausea, no vomiting Physical Examination Vital Signs: Vital Signs, Last 4 Hours Temp Pulse Resp BP Pulse Ox 07/16/17 11:40 97.6 F 101 21 150/76 100 07/16/17 11:28 85 07/16/17 11:25 98 F 101 21 155/69 95 07/16/17 11:16 94 22 152/79 95 General appearance: no acute distress Eyes: nonicteric ENT: oropharynx moist Neck: supple Effort: normal Inspection: normal Auscultation: bilateral: clear Percussion: bilateral: not dull Tactile fremitus: bilateral: normal Cardiovascular: regular rate and rhythm Gastrointestinal: normoactive bowel sounds, non-distended Integumentary: normal Extremities: no cyanosis, no edema, no clubbing Musculoskeletal: no deformities, ROM normal normal mental status, non-focal exam mood appropriate, affect normal Results - Laboratory Findings CBC and BMP: 07/16/17 09:09 07/16/17 09:09 PT/INR, D-dimer PT 15.9 Seconds (9.4-12.1) H 07/16/17 09:09 Abnormal lab findings: Abnormal lab results RBC 2.18 M/mcL (4.19-5.50) L 07/16/17 09:09 Hgb 6.5 g/dL (12.9-16.9) L 07/16/17 09:09 Hct 20.0 % (37.5-50.1) L 07/16/17 09:09 RDW 19.8 % (11.5-14.5) H 07/16/17 09:09 Plt Count 134 K/mcL (140-400) L 07/16/17 09:09 Lymphocytes # 0.4 K/mcL (0.6-4.6) L 07/16/17 09:09 PT 15.9 Seconds (9.4-12.1) H 07/16/17 09:09 APTT 18.8 Seconds (26.0-36.0) L 07/16/17 09:09 Potassium 2.4 mEq/L (3.5-5.1) L* 07/16/17 09:09 Chloride 90 mEq/L (98-107) L 07/16/17 09:09 Carbon Dioxide 39 mEq/L (23-29) H 07/16/17 09:09 Glucose 155 mg/dL (70-105) H 07/16/17 09:09 Calcium 7.7 mg/dL (8.6-10.3) L 07/16/17 09:09 Total Bilirubin 1.6 mg/dL (0.3-1.0) H 07/16/17 09:09 ALT 4 Units/L (7-52) L 07/16/17 09:09 Serum Total Protein 4.6 g/dL (6.4-8.9) L 07/16/17 09:09 Albumin 3.1 g/dL (3.5-5.7) L 07/16/17 09:09 Globulin 1.5 g/dL (2.4-3.5) L 07/16/17 09:09
[2017-07-16] MEDS ORDERED: Ondansetron 4 MG/2 ML VIAL ONE (14:41)
[2017-07-16] MEDS ORDERED: Lidocaine -MPF 2% 2 ML VIAL ONE (14:41)
[2017-07-16] MEDS ORDERED: *HR* Propofol 200 MG/20 ML VIAL IVP ONE ×2 (14:41→15:28)
[2017-07-16] MEDS ORDERED: *HR* Succinylcholine 200 MG/10 ML VIAL IVP ONE (14:41)
[2017-07-16] MEDS ORDERED: Dexamethasone 4 MG/ML VIAL ONE (14:41)
--- NOTE | 2017-07-16 14:43 | Anesthesia Evaluation PreOp ---
Date of Encounter: 07/16/17 Time of Encounter: 15:04 - Past History Planned Operation: EGD Cardiac History: CHF, HTN, Hyperlipidemia, Arrhythmia (Afib) Pulmonary History: COPD (Severe, not on home O2, does not use Rx inhalers) STARCH CRAB History: Syncope, Other (Dementia) Other Medical History: Bleeding ([place], anemia, Hb 6.5), Other (Hypokalemia,) Anesthesia History: No Prior Anesthetic Complications, Past Anesthesia Alcohol Use: occasionally Drug use: none Medications and Allergies Lisinopril [Zestril] 10 mg PO DAILY 06/10/16 [History] Potassium Chloride [K-Tab ER] 20 meq PO DAILY 06/10/16 [History] Furosemide [Lasix] 20 mg PO BID #30 tablet 06/14/16 [Rx] Atorvastatin Calcium [Lipitor] 20 mg PO HS 05/29/17 [History] Donepezil [Aricept] 10 mg PO HS 05/29/17 [History] Metoprolol XL (24 HR) Succ [Toprol Xl] 25 mg PO BID 05/29/17 [History] Omeprazole [PriLOSEC] 40 mg PO BID 05/29/17 [History] Memantine HCl [Memantine HCl] 5 mg PO BID 07/16/17 [History] 3 Allergy/AdvReac Type Severity Reaction Status Date / Time No Known Allergies Allergy Verified 07/16/17 10:02 - Meds/Allergy Pre-op Review Medications Reviewed: Yes Allergies Reviewed: Yes Beta Blockers on Current Med List: Yes Anesthesia Results - Labs 07/16/17 09:09 07/16/17 09:09 - Imaging Additional studies: TTE 05/2017: Impressions: LVEF 55%. Normal LV chamber size and function. Mild concentric left ventricular hypertrophy. Indeterminate diastolic function. Normal right ventricular structure and function. Severely dilated left atrium. Severely dilated right atrium. Moderately calcified aortic valve leaflets. Mild aortic regurgitation. No aortic stenosis detected by Doppler. Gradient may be underestimated. Moderate tricuspid regurgitation. Moderate-severe pulmonary hypertension. Estimated RVSP is 56 mmHg. Compared to prior report dated 06/2016, LVEF has improved. PFT 07/2016: FVC 42-46% FEV1 40-45% MVV 38% DLCO 31% Anesthesia Exam Vital Signs/O2 Sat, Most Current Temp Pulse Resp BP Pulse Ox 97.6 F 101 21 150/76 100 07/16/17 11:40 07/16/17 11:40 07/16/17 11:40 07/16/17 11:40 07/16/17 11:40 Height: 68 in Weight: 74 kg ....BMI 25 - HEENT Teeth: Edentulous Denture Type: Upper: Complete - STARCH CRAB LOC: Oriented - Cardiac Rhythm: Irregular - Pulmonary Breath Sounds: bilateral Rales, bilateral Rhonchi - Additional Findings Received 1 u PRBC in ER Anesthesia Assess/Plan ASA Score: 5, E Modified [place] Scale for Level of Consciousness: Cooperative, oriented, and tranquil Anesthetic Plan: General (Possible), MAC Autologous Blood: Yes (1 unit PRBC available) Monitoring Plan: Standard Monitors, A-Line (Possible), CVC (Possible) Recovery Plan: PACU Anes Supervising Prov Stmt: I have participated in the evaluation of this patient. Patient informed and consented. Risks, benefits, and alternatives discussed. Patient wishes to proceed.
[2017-07-16] MEDS ORDERED: *HR* PHENYLEPHRINE 1,000 MCG/10 ML SYRINGE IVP ONE (15:14)
--- NOTE | 2017-07-16 17:04 | Anesthesia Evaluation Post Op ---
Date of Encounter: 07/16/17 Time of Encounter: 17:04 - Vital Signs Vital Signs: Vital Signs/O2 Sat, Most Current Temp Pulse Resp BP Pulse Ox 97.6 F 120 20 179/83 100 07/16/17 16:00 07/16/17 16:20 07/16/17 16:20 07/16/17 16:20 07/16/17 16:20 - Lungs Lungs: Clear Ascult./Percussion - Airway Airway: Non-obstructed - Cardiovascular Irregular Rate, Baseline Rhythm - Mental Status Mental Status: Confused - Nausea Vomiting Nausea Vomiting: Not Present - Hydration Hydration: NPO - Discharge PostOp Status: Transfer Patient to floor
[2017-07-16] MEDS ORDERED: *HR* EPINEPHrine 1 MG/10 ML SYRINGE ONE (18:00)
[2017-07-16 18:03] LABS: Hematocrit 21.2 % (37.5-50.1)
[2017-07-16] MEDS: Pantoprazole 40 MG in 0.9 % Sodium Chloride Mini Bag 100 ML IVC SCH (19:50)
[2017-07-16] MEDS: 0.9 % Sodium Chloride 1,000 ML IVC SCH (19:50)
[2017-07-16 21:08] LABS: Hematocrit 19.1 % (37.5-50.1); Hemoglobin 6.3 g/dL (12.9-16.9)
[2017-07-17] MEDS: Pantoprazole 40 MG in 0.9 % Sodium Chloride Mini Bag 100 ML IVC SCH ×5 (00:28→21:50)
[2017-07-17 01:37] LABS: VBG Ionized Calcium 0.96 mmol/L (1.15-1.35)
[2017-07-17 01:54] LABS: BUN/Creatinine Ratio 16 (6-26); Blood Urea Nitrogen 15 mg/dL (8-23); Calcium 7.6 mg/dL (8.6-10.3); Carbon Dioxide 37 mEq/L (23-29); Chloride 96 mEq/L (98-107); Glucose 90 mg/dL (70-105); Osmolality,Calculated 288 (280-300); Phosphorous 3.4 mg/dL (2.7-4.5); Potassium 2.7 mEq/L (3.5-5.1); Sodium 139 mEq/L (136-145); eGFR For African Americans > 60 (> 60); eGFR For Non-African Americans > 60 (> 60)
[2017-07-17] MEDS ORDERED: Potassium Phosphate 44 MEQ in 0.9 % Sodium Chloride 250 ML IVPB PRN (02:57)
[2017-07-17 03:43] LABS: Eosinophils % 0.4 %; Hematocrit 22.7 % (37.5-50.1); Hemoglobin 7.4 g/dL (12.9-16.9); Immature Granulocytes % 0.4 % (0-4); Lymphocytes # 0.4 K/mcL (0.6-4.6); Lymphocytes % 7.8 %; Mean Corpuscular HGB Conc 32.6 g/dL (31.6-35.5); Mean Corpuscular Hemoglobin 29.6 pg (28.0-33.3); Mean Corpuscular Volume 90.8 fL (83.0-100.0); Mean Platelet Volume 10.2 fL (9.4-12.4); Monocytes # 0.4 K/mcL (0.0-1.3); Monocytes % 8.3 %; Neutrophils # 4.4 K/mcL (1.6-8.9); Platelet Count 123 K/mcL (140-400); Red Cell Distribution Width 19.5 % (11.5-14.5); Segmented Neutrophils % 83.1 %
[2017-07-17 03:50] LABS: INR 1.2; Prothrombin Time 13.5 Seconds (9.4-12.1)
[2017-07-17 04:06] LABS: BUN/Creatinine Ratio 16 (6-26); Blood Urea Nitrogen 15 mg/dL (8-23); Calcium 7.8 mg/dL (8.6-10.3); Carbon Dioxide 35 mEq/L (23-29); Chloride 96 mEq/L (98-107); Glucose 83 mg/dL (70-105); Osmolality,Calculated 290 (280-300); Potassium 2.7 mEq/L (3.5-5.1); Sodium 140 mEq/L (136-145); eGFR For African Americans > 60 (> 60); eGFR For Non-African Americans > 60 (> 60)
[2017-07-17] MEDS ORDERED: *HR* Metoprolol 5 MG/5 ML VIAL IVP ONE (08:27)
[2017-07-17] MEDS: Metoprolol XL (24 HR) Succ 25 MG TAB.ER.24H PO SCH ×2 (10:03→20:02)
[2017-07-17] MEDS: Furosemide 20 MG TABLET PO SCH ×2 (10:04→17:22)
[2017-07-17] MEDS: Acetaminophen 325 MG TABLET PO PRN ×2 (11:46→20:02)
[2017-07-17 13:19] LABS: Hematocrit 23.1 % (37.5-50.1); Hemoglobin 7.5 g/dL (12.9-16.9)
[2017-07-17] MEDS ORDERED: 0.9 % Sodium Chloride 250 ML ONE ×2 (14:06→21:31)
[2017-07-17] MEDS: 0.9 % Sodium Chloride 1,000 ML IVC SCH (14:40)
--- NOTE | 2017-07-17 17:11 | Electrocardiograph Report ---
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
--- NOTE | 2017-07-17 18:00 | Internal Med Progress Note ---
Date of Encounter: 07/17/17 Time of Encounter: 11:00 - Assessment and plan (1) Anemia Current Visit: Yes Status: Acute Assessment and plan: Hemoglobin now 7.5 status post 2 units of packed red blood cells Patient with acute blood loss anemia suspect secondary to GI GI consult with recommendations for EGD which showed 1 nonbleeding duodenal ulcer with a visible vessel injected and treated with heater probe Medications for continue PPI infusion; gastrin level pending Qualifiers: Anemia type: unspecified type Qualified Code(s): D64.9 - Anemia, unspecified (2) History of duodenal ulcer Current Visit: Yes Status: Acute Assessment and plan: Evaluation and management as above (3) Atrial fibrillation Current Visit: No Status: Chronic Assessment and plan: Continue beta scottie for rate control Qualifiers: Atrial fibrillation type: persistent Qualified Code(s): I48.1 - Persistent atrial fibrillation - Time Spent With Patient Total time spent is greater than 50% in coordination of care (as documented) at patient's floor/unit and/or counseling patient: - Subjective Interval history: Patient scheduled for EGD today due to acute blood loss anemia He has been hemodynamically stable - Constitutional Vitals: Temp Pulse Resp BP Pulse Ox 97.6 F 116 19 148/78 100 07/17/17 17:18 07/17/17 17:18 07/17/17 17:18 07/17/17 17:18 07/17/17 16:01 General appearance: Present: no acute distress - Respiratory Respiratory exam: Present: CTAB. Absent: accessory muscle use, rales, rhonchi, wheezes - Cardiovascular Cardiovascular exam: Present: RRR, +S1, +S2. Absent: diastolic murmur, gallop, rubs, systolic murmur Internal Medicine: Result - Labs CBC & Chem 7: 07/17/17 13:06 07/17/17 13:06 Labs: Short CBC 07/16/17 07/16/17 07/17/17 Range/Units 17:28 20:46 03:03 WBC 5.3 (4.3-11.1) K/mcL Hgb 7.0 L 6.3 L 7.4 L (12.9-16.9) g/dL Hct 21.2 L 19.1 L 22.7 L (37.5-50.1) % Plt Count 123 L (140-400) K/mcL Neutrophils # 4.4 (1.6-8.9) K/mcL 07/17/17 Range/Units 13:06 WBC (4.3-11.1) K/mcL Hgb 7.5 L (12.9-16.9) g/dL Hct 23.1 L (37.5-50.1) % Plt Count (140-400) K/mcL Neutrophils # (1.6-8.9) K/mcL BMP 07/17/17 07/17/17 07/17/17 01:13 03:03 13:06 Sodium 139 140 Potassium 2.7 L 2.7 L 3.3 L Chloride 96 L 96 L Carbon Dioxide 37 H 35 H BUN 15 15 Creatinine 0.92 0.95 Glucose 90 83 Calcium 7.6 L 7.8 L - ABG Interpretation ABG results: PT/INR, D-dimer PT 13.5 Seconds (9.4-12.1) H 07/17/17 03:03 - Impressions Impressions Hand X-Ray 07/17/17 11:37 IMPRESSION: No evidence of acute displaced traumatic fracture or dislocation. Degenerative changes at the base of the thumb. Dense atherosclerotic calcifications of the radial artery. This may be seen with diabetes. D/ / 07/17/2017 14:58:35 Angel Kumar MD / Karen Noel Interpreting Provider: Angel Kumar MD Consult Discharge Plan - Plan Referrals: Osito Castillo Jr, MD [Primary Care Provider] - (called and left message to make appointment) Ankita Blum MD [Partnered Physician] - (SENT WEB REQUEST ON 07/17/17 @8:31)
[2017-07-17 19:29] LABS: Hematocrit 25.6 % (37.5-50.1); Hemoglobin 8.3 g/dL (12.9-16.9)
[2017-07-17] MEDS: Melatonin 3 MG TABLET PO SCH (22:26)
[2017-07-18] MEDS: Pantoprazole 40 MG in 0.9 % Sodium Chloride Mini Bag 100 ML IVC SCH ×4 (03:02→19:50)
[2017-07-18] MEDS: *HR* HYDROcodone/Acet 5/325 mg TABLET PO PRN (03:05)
[2017-07-18 03:55] LABS: Hematocrit 28.6 % (37.5-50.1); Hemoglobin 9.4 g/dL (12.9-16.9)
[2017-07-18 03:56] LABS: Basophils % 0.3 %; Eosinophils # 0.1 K/mcL (0.0-0.6); Eosinophils % 2.3 %; Hematocrit 28.5 % (37.5-50.1); Hemoglobin 9.5 g/dL (12.9-16.9); Immature Granulocytes % 0.3 % (0-4); Lymphocytes # 0.6 K/mcL (0.6-4.6); Lymphocytes % 8.9 %; Mean Corpuscular HGB Conc 33.3 g/dL (31.6-35.5); Mean Corpuscular Hemoglobin 29.9 pg (28.0-33.3); Mean Corpuscular Volume 89.6 fL (83.0-100.0); Mean Platelet Volume 10.1 fL (9.4-12.4); Monocytes # 0.5 K/mcL (0.0-1.3); Monocytes % 7.4 %; Platelet Count 136 K/mcL (140-400); Red Blood Count 3.18 M/mcL (4.19-5.50); Red Cell Distribution Width 18.4 % (11.5-14.5); Segmented Neutrophils % 80.8 %
[2017-07-18 04:15] LABS: BUN/Creatinine Ratio 18 (6-26); Blood Urea Nitrogen 18 mg/dL (8-23); Calcium 8.2 mg/dL (8.6-10.3); Carbon Dioxide 31 mEq/L (23-29); Chloride 98 mEq/L (98-107); Glucose 93 mg/dL (70-105); Magnesium 1.8 mg/dL (1.6-2.6); Osmolality,Calculated 284 (280-300); Potassium 3.3 mEq/L (3.5-5.1); Sodium 136 mEq/L (136-145); eGFR For African Americans > 60 (> 60); eGFR For Non-African Americans > 60 (> 60)
[2017-07-18 07:20] LABS: Hemoglobin 9.5 g/dL (12.9-16.9)
[2017-07-18 07:40] LABS: VBG Ionized Calcium 1.02 mmol/L (1.15-1.35)
[2017-07-18] MEDS: Furosemide 20 MG TABLET PO SCH ×2 (08:31→17:25)
[2017-07-18] MEDS: Metoprolol XL (24 HR) Succ 25 MG TAB.ER.24H PO SCH ×2 (08:32→20:33)
[2017-07-18 15:12] LABS: Potassium 3.8 mEq/L (3.5-5.1)
[2017-07-18 16:19] LABS: VBG Ionized Calcium 0.97 mmol/L (1.15-1.35)
--- NOTE | 2017-07-18 19:17 | Internal Med Progress Note ---
Date of Encounter: 07/18/17 Time of Encounter: 11:00 - Assessment and plan (1) Anemia Current Visit: Yes Status: Acute Assessment and plan: Hemoglobin now 9.5 status post 2 units of packed red blood cells Patient with acute blood loss anemia suspect secondary to GI GI consult with recommendations for EGD which showed 1 nonbleeding duodenal ulcer with a visible vessel injected and treated with heater probe Recommendations to continue PPI infusion; gastrin level pending Qualifiers: Anemia type: unspecified type Qualified Code(s): D64.9 - Anemia, unspecified (2) History of duodenal ulcer Current Visit: Yes Status: Acute Assessment and plan: Evaluation and management as above (3) Atrial fibrillation Current Visit: No Status: Chronic Assessment and plan: Continue beta scottie for rate control Qualifiers: Atrial fibrillation type: persistent Qualified Code(s): I48.1 - Persistent atrial fibrillation - Time Spent With Patient Total time spent is greater than 50% in coordination of care (as documented) at patient's floor/unit and/or counseling patient: - Subjective Interval history: EGD late yesterday afternoon showed 1 nonbleeding duodenal ulcer which was injected with heater probe. Patient with no issues or complaints this morning. - Constitutional Vitals: Temp Pulse Resp BP Pulse Ox 97.6 F 102 16 164/79 95 07/18/17 18:59 07/18/17 18:59 07/18/17 18:59 07/18/17 18:59 07/18/17 18:59 General appearance: Present: no acute distress - Respiratory Respiratory exam: Present: CTAB. Absent: accessory muscle use, rales, rhonchi, wheezes - Cardiovascular Cardiovascular exam: Present: RRR, +S1, +S2. Absent: diastolic murmur, gallop, rubs, systolic murmur - GI/Abdominal GI/Abdominal exam: Present: normal bowel sounds, soft, no peritoneal signs. Absent: distended, tenderness Internal Medicine: Result - Labs CBC & Chem 7: 07/18/17 07:07 07/18/17 14:27 Labs: Short CBC 07/17/17 07/18/17 07/18/17 Range/Units 19:11 03:20 03:20 WBC 6.2 (4.3-11.1) K/mcL Hgb 8.3 L 9.4 L 9.5 L (12.9-16.9) g/dL Hct 25.6 L 28.6 L 28.5 L (37.5-50.1) % Plt Count 136 L (140-400) K/mcL Neutrophils # 5.0 (1.6-8.9) K/mcL 07/18/17 Range/Units 07:07 WBC (4.3-11.1) K/mcL Hgb 9.5 L (12.9-16.9) g/dL Hct 29.0 L (37.5-50.1) % Plt Count (140-400) K/mcL Neutrophils # (1.6-8.9) K/mcL BMP 07/18/17 07/18/17 03:20 14:27 Sodium 136 Potassium 3.3 L 3.8 Chloride 98 Carbon Dioxide 31 H BUN 18 Creatinine 1.00 Glucose 93 Calcium 8.2 L - ABG Interpretation ABG results: PT/INR, D-dimer PT 13.5 Seconds (9.4-12.1) H 07/17/17 03:03 - Impressions Impressions Hand X-Ray 07/17/17 11:37 IMPRESSION: No evidence of acute displaced traumatic fracture or dislocation. Degenerative changes at the base of the thumb. Dense atherosclerotic calcifications of the radial artery. This may be seen with diabetes. D/ / 07/17/2017 14:58:35 Angel Kumar MD / Karen Noel Interpreting Provider: Angel Kumar MD Consult Discharge Plan - Plan Referrals: Osito Castillo Jr, MD [Primary Care Provider] - (called and left message to make appointment) Ankita Blum MD [Partnered Physician] - (SENT WEB REQUEST ON 07/17/17 @8:31)
[2017-07-18] MEDS: Melatonin 3 MG TABLET PO SCH (20:33)
--- NOTE | 2017-07-18 22:53 | Gastroenterology Progress Note ---
Date of Encounter: 07/18/17 Time of Encounter: 10:00 - Assessment and plan (1) Duodenal ulcer Current Visit: Yes Status: Acute Assessment and plan: Follow CBC Soft diet Cont PPI for next 24-48 hr then bID PPI and carafate tab bID repeat EGD in 2 months to make sure ulcer healed - Time Spent With Patient Total time spent is greater than 50% in coordination of care (as documented) at patient's floor/unit and/or counseling patient: - Subjective Interval history: Denies abd pain, no blood in stool now. - Constitutional Vitals: Temp Pulse Resp BP Pulse Ox 97.6 F 108 16 164/79 95 07/18/17 18:59 07/18/17 19:45 07/18/17 18:59 07/18/17 18:59 07/18/17 18:59 General appearance: Present: cooperative, A&O X 3, no acute distress, answers questions appropriately - Head Head exam: Present: atraumatic - Eye Eye exam: Present: sclera anicteric - Cardiovascular Additional comments: soft, non tander Results - Labs CBC & Chem 7: 07/18/17 07:07 07/18/17 14:27 Labs: Last Result Calcium 8.2 mg/dL (8.6-10.3) L 07/18/17 03:20 Entire Visit Hgb 9.5 g/dL (12.9-16.9) L 07/18/17 07:07 Hct 29.0 % (37.5-50.1) L 07/18/17 07:07 PT 13.5 Seconds (9.4-12.1) H 07/17/17 03:03 Total Bilirubin 1.6 mg/dL (0.3-1.0) H 07/16/17 09:09 AST 15 Units/L (13-39) 07/16/17 09:09 ALT 4 Units/L (7-52) L 07/16/17 09:09 - ABG ABG results: PT/INR, D-dimer PT 13.5 Seconds (9.4-12.1) H 07/17/17 03:03 - Impressions Impressions Hand X-Ray 07/17/17 11:37 IMPRESSION: No evidence of acute displaced traumatic fracture or dislocation. Degenerative changes at the base of the thumb. Dense atherosclerotic calcifications of the radial artery. This may be seen with diabetes. D/ / 07/17/2017 14:58:35 Angel Kumar MD / Karen Noel Interpreting Provider: Angel Kumar MD Consult Discharge Plan - Plan Referrals: Osito Castillo Jr, MD [Primary Care Provider] - (called and left message to make appointment) Ankita Blum MD [Partnered Physician] - (SENT WEB REQUEST ON 07/17/17 @8:31)
[2017-07-19] MEDS: Pantoprazole 40 MG in 0.9 % Sodium Chloride Mini Bag 100 ML IVC SCH ×5 (01:02→22:19)
[2017-07-19 04:17] LABS: Basophils % 0.3 %; Eosinophils # 0.2 K/mcL (0.0-0.6); Eosinophils % 2.2 %; Hematocrit 29.5 % (37.5-50.1); Hemoglobin 9.6 g/dL (12.9-16.9); Immature Granulocytes % 0.6 % (0-4); Lymphocytes # 0.5 K/mcL (0.6-4.6); Lymphocytes % 7.3 %; Mean Corpuscular HGB Conc 32.5 g/dL (31.6-35.5); Mean Corpuscular Hemoglobin 30.2 pg (28.0-33.3); Mean Corpuscular Volume 92.8 fL (83.0-100.0); Mean Platelet Volume 10.4 fL (9.4-12.4); Monocytes # 0.5 K/mcL (0.0-1.3); Monocytes % 7.9 %; Neutrophils # 5.4 K/mcL (1.6-8.9); Platelet Count 146 K/mcL (140-400); Red Blood Count 3.18 M/mcL (4.19-5.50); Red Cell Distribution Width 18.6 % (11.5-14.5); Segmented Neutrophils % 81.7 %
[2017-07-19 04:38] LABS: BUN/Creatinine Ratio 15 (6-26); Blood Urea Nitrogen 15 mg/dL (8-23); Calcium 8.3 mg/dL (8.6-10.3); Carbon Dioxide 31 mEq/L (23-29); Chloride 100 mEq/L (98-107); Glucose 104 mg/dL (70-105); Magnesium 1.8 mg/dL (1.6-2.6); Osmolality,Calculated 285 (280-300); Potassium 4.4 mEq/L (3.5-5.1); Sodium 137 mEq/L (136-145); eGFR For African Americans > 60 (> 60); eGFR For Non-African Americans > 60 (> 60)
[2017-07-19 04:41] LABS: VBG Ionized Calcium 1.08 mmol/L (1.15-1.35)
[2017-07-19] MEDS: Metoprolol XL (24 HR) Succ 25 MG TAB.ER.24H PO SCH ×2 (08:57→22:18)
[2017-07-19] MEDS: Furosemide 20 MG TABLET PO SCH ×2 (08:58→18:17)
[2017-07-19] MEDS: *HR* HYDROcodone/Acet 5/325 mg TABLET PO PRN (08:59)
--- NOTE | 2017-07-19 18:54 | Internal Med Progress Note ---
Date of Encounter: 07/19/17 Time of Encounter: 11:00 - Assessment and plan (1) History of duodenal ulcer Current Visit: Yes Status: Acute Assessment and plan: GI consult with recommendations for EGD which showed 1 nonbleeding duodenal ulcer with a visible vessel injected and treated with heater probe Recommendations to continue PPI infusion for 48 hours; gastrin level pendinge (2) Anemia Current Visit: Yes Status: Acute Assessment and plan: Hemoglobin now 9.6 status post 2 units of packed red blood cells Patient with acute blood loss anemia suspect secondary to GI We will continue to monitor Qualifiers: Anemia type: unspecified type Qualified Code(s): D64.9 - Anemia, unspecified (3) Atrial fibrillation Current Visit: No Status: Chronic Assessment and plan: Continue beta scottie for rate control Qualifiers: Atrial fibrillation type: persistent Qualified Code(s): I48.1 - Persistent atrial fibrillation - Time Spent With Patient Total time spent is greater than 50% in coordination of care (as documented) at patient's floor/unit and/or counseling patient: - Subjective Interval history: EGD showed 1 nonbleeding duodenal ulcer which was injected with heater probe. Recommendations for 48 hours of Protonix infusion Patient with no issues or complaints this morning - Constitutional Vitals: Temp Pulse Resp BP Pulse Ox 98.0 F 94 18 160/100 99 07/19/17 16:16 07/19/17 16:16 07/19/17 16:16 07/19/17 16:16 07/19/17 16:16 General appearance: Present: no acute distress - Respiratory Respiratory exam: Present: CTAB. Absent: accessory muscle use, rales, rhonchi, wheezes - Cardiovascular Cardiovascular exam: Present: RRR, +S1, +S2. Absent: diastolic murmur, gallop, rubs, systolic murmur - GI/Abdominal GI/Abdominal exam: Present: normal bowel sounds, soft, no peritoneal signs. Absent: distended, tenderness Internal Medicine: Result - Labs CBC & Chem 7: 07/19/17 03:05 07/19/17 03:05 Labs: Short CBC 07/19/17 Range/Units 03:05 WBC 6.7 (4.3-11.1) K/mcL Hgb 9.6 L (12.9-16.9) g/dL Hct 29.5 L (37.5-50.1) % Plt Count 146 (140-400) K/mcL Neutrophils # 5.4 (1.6-8.9) K/mcL BMP 07/19/17 03:05 Sodium 137 Potassium 4.4 Chloride 100 Carbon Dioxide 31 H BUN 15 Creatinine 1.03 Glucose 104 Calcium 8.3 L - ABG Interpretation ABG results: PT/INR, D-dimer PT 13.5 Seconds (9.4-12.1) H 07/17/17 03:03 Consult Discharge Plan - Plan Referrals: Osito Castillo Jr, MD [Primary Care Provider] - (called and left message to make appointment) Ankita Blum MD [Partnered Physician] - (SENT WEB REQUEST ON 07/17/17 @8:31)
[2017-07-19] MEDS: Melatonin 3 MG TABLET PO SCH (22:18)
[2017-07-19 22:54] LABS: VBG Ionized Calcium 1.09 mmol/L (1.15-1.35); VBG PH 7.32 pH Units (7.32-7.42)
[2017-07-19 23:09] LABS: Magnesium 1.8 mg/dL (1.6-2.6); Phosphorous 4.5 mg/dL (2.7-4.5); Potassium 4.5 mEq/L (3.5-5.1)
[2017-07-20 03:58] LABS: Basophils % 0.3 %; Eosinophils # 0.2 K/mcL (0.0-0.6); Eosinophils % 2.6 %; Hematocrit 27.5 % (37.5-50.1); Hemoglobin 8.7 g/dL (12.9-16.9); Immature Granulocytes % 0.5 % (0-4); Lymphocytes # 0.4 K/mcL (0.6-4.6); Lymphocytes % 7.3 %; Mean Corpuscular HGB Conc 31.6 g/dL (31.6-35.5); Mean Corpuscular Hemoglobin 28.9 pg (28.0-33.3); Mean Corpuscular Volume 91.4 fL (83.0-100.0); Mean Platelet Volume 10.1 fL (9.4-12.4); Monocytes # 0.5 K/mcL (0.0-1.3); Monocytes % 8.5 %; Neutrophils # 4.7 K/mcL (1.6-8.9); Platelet Count 135 K/mcL (140-400); Red Blood Count 3.01 M/mcL (4.19-5.50); Red Cell Distribution Width 18.5 % (11.5-14.5); Segmented Neutrophils % 80.8 %
[2017-07-20] MEDS: Pantoprazole 40 MG in 0.9 % Sodium Chloride Mini Bag 100 ML IVC SCH ×5 (04:00→20:10)
[2017-07-20 04:17] LABS: VBG Ionized Calcium 1.13 mmol/L (1.15-1.35); VBG PH 7.33 pH Units (7.32-7.42)
[2017-07-20 04:21] LABS: Alanine Aminotransferase 4 Units/L (7-52); Albumin 3.4 g/dL (3.5-5.7); Albumin/Globulin Ratio 2.3 (1.1-2.2); Alkaline Phosphatase 43 Units/L (34-104); Aspartate Amino Transferase 13 Units/L (13-39); BUN/Creatinine Ratio 17 (6-26); Bilirubin,Total 0.9 mg/dL (0.3-1.0); Blood Urea Nitrogen 15 mg/dL (8-23); Calcium 8.5 mg/dL (8.6-10.3); Carbon Dioxide 33 mEq/L (23-29); Chloride 98 mEq/L (98-107); Globulin 1.5 g/dL (2.4-3.5); Glucose 110 mg/dL (70-105); Magnesium 1.9 mg/dL (1.6-2.6); Osmolality,Calculated 283 (280-300); Potassium 4.3 mEq/L (3.5-5.1); Sodium 136 mEq/L (136-145); Total Protein 4.9 g/dL (6.4-8.9); eGFR For African Americans > 60 (> 60); eGFR For Non-African Americans > 60 (> 60)
[2017-07-20] MEDS: Furosemide 20 MG TABLET PO SCH ×2 (08:37→16:42)
[2017-07-20] MEDS: *HR* HYDROcodone/Acet 5/325 mg TABLET PO PRN ×2 (08:38→20:10)
[2017-07-20] MEDS: Metoprolol XL (24 HR) Succ 25 MG TAB.ER.24H PO SCH ×2 (08:38→20:11)
[2017-07-20] MEDS: Sucralfate 1 GM TABLET PO SCH ×3 (10:48→20:11)
--- NOTE | 2017-07-20 18:13 | Internal Med Progress Note ---
Date of Encounter: 07/20/17 Time of Encounter: 11:00 - Assessment and plan (1) History of duodenal ulcer Current Visit: Yes Status: Acute Assessment and plan: GI consult with recommendations for EGD which showed 1 nonbleeding duodenal ulcer with a visible vessel injected and treated with heater probe Recommendations to continue PPI infusion for 48 hours; gastrin level pendinge Patient started on Carafate and will be started on oral PPI on 07/21/17 (2) Anemia Current Visit: Yes Status: Acute Assessment and plan: Hemoglobin now 8.7 status post 2 units of packed red blood cells Patient with acute blood loss anemia suspect secondary to GI We will continue to monitor Qualifiers: Anemia type: unspecified type Qualified Code(s): D64.9 - Anemia, unspecified (3) Atrial fibrillation Current Visit: No Status: Chronic Assessment and plan: Continue beta scottie for rate control Qualifiers: Atrial fibrillation type: persistent Qualified Code(s): I48.1 - Persistent atrial fibrillation - Time Spent With Patient Total time spent is greater than 50% in coordination of care (as documented) at patient's floor/unit and/or counseling patient: - Subjective Interval history: EGD showed 1 nonbleeding duodenal ulcer which was injected with heater probe. Recommendations for and additional 24 hours of Protonix infusion - Constitutional Vitals: Temp Pulse Resp BP Pulse Ox 97.8 F 83 20 145/65 96 07/20/17 15:29 07/20/17 15:29 07/20/17 15:29 07/20/17 15:29 07/20/17 15:29 General appearance: Present: no acute distress - Respiratory Respiratory exam: Present: CTAB. Absent: accessory muscle use, rales, rhonchi, wheezes - Cardiovascular Cardiovascular exam: Present: RRR, +S1, +S2. Absent: diastolic murmur, gallop, rubs, systolic murmur Internal Medicine: Result - Labs CBC & Chem 7: 07/20/17 03:33 07/20/17 03:33 Labs: Short CBC 07/20/17 Range/Units 03:33 WBC 5.8 (4.3-11.1) K/mcL Hgb 8.7 L (12.9-16.9) g/dL Hct 27.5 L (37.5-50.1) % Plt Count 135 L (140-400) K/mcL Neutrophils # 4.7 (1.6-8.9) K/mcL BMP 07/19/17 07/20/17 22:40 03:33 Sodium 136 Potassium 4.5 4.3 Chloride 98 Carbon Dioxide 33 H BUN 15 Creatinine 0.86 Glucose 110 H Calcium 8.5 L Liver Function 07/20/17 Range/Units 03:33 Total Bilirubin 0.9 (0.3-1.0) mg/dL AST 13 (13-39) Units/L ALT 4 L (7-52) Units/L Alkaline Phosphatase 43 (34-104) Units/L Albumin 3.4 L (3.5-5.7) g/dL - ABG Interpretation ABG results: PT/INR, D-dimer PT 13.5 Seconds (9.4-12.1) H 07/17/17 03:03 Consult Discharge Plan - Plan Referrals: Osito Castillo Jr, MD [Primary Care Provider] - (called and left message to make appointment) Ankita Blum MD [Partnered Physician] - (SENT WEB REQUEST ON 07/17/17 @8:31)
[2017-07-20] MEDS: Melatonin 3 MG TABLET PO SCH (20:11)
[2017-07-21] MEDS: Pantoprazole 40 MG in 0.9 % Sodium Chloride Mini Bag 100 ML IVC SCH ×3 (04:30→11:53)
[2017-07-21 05:24] LABS: VBG Ionized Calcium 1.11 mmol/L (1.15-1.35)
[2017-07-21] MEDS: Acetaminophen 325 MG TABLET PO PRN (08:39)
[2017-07-21] MEDS: Sucralfate 1 GM TABLET PO SCH ×4 (08:39→20:48)
[2017-07-21] MEDS: Metoprolol XL (24 HR) Succ 25 MG TAB.ER.24H PO SCH ×2 (08:39→20:49)
[2017-07-21] MEDS: Furosemide 20 MG TABLET PO SCH ×2 (08:40→16:25)
--- NOTE | 2017-07-21 10:32 | Discharge Summary ---
- NOTES TO OUTPATIENT PROVIDER Notes to Outpatient Provider: Follow hemoglobin for acute blood loss anemia history of duodenal ulcer disease Orders not resulted at time of discharge: Pending orders 07/19/17 04:11 Ionized Calcium,venous blood AM 0400 Date of Encounter: 07/21/17 Time of Encounter: 10:00 - Discharge Diagnosis (1) History of duodenal ulcer Priority: Primary Status: Acute (2) Anemia Priority: Primary Status: Acute Qualifiers: Anemia type: unspecified type Qualified Code(s): D64.9 - Anemia, unspecified (3) Atrial fibrillation Priority: Secondary Status: Chronic Qualifiers: Atrial fibrillation type: persistent Qualified Code(s): I48.1 - Persistent atrial fibrillation Hospital course: Patient is an 86-year-old male with past medical history significant for atrial fibrillation, CHF, COPD, dementia, HLD, HTN, [place], dementia, HLD, HTN, and diastolic heart failure who presented to [facility] ED via EMS with the chief complaint of melena and syncope. Patient reported that earlier in the day, he was in the bathroom and suddenly fell and lost consciousness for a brief period of time. Reports a similar incident recently; hurt his wrist during that time. Per EMS, there was approximately 500cc of melena with small amount of stool. In the ER, patient was found to have a hemoglobin of 6.5. Patient was admitted to the progressive medical unit for acute blood loss anemia. During patients hospital stay and EGD was done which showed 1 nonbleeding duodenal ulcer with a visible vessel injected and treated with heater probe. Patient completed a 48 hour course of PPI infusion per GI recommendations. Patient also received 2 units of packed red blood cells during hospital stay and hemoglobin remained stable. Patient now will be started on proton pump inhibitor in addition to Carafate. Physical therapy was consulted with recommendations for prison facility placement - Time Spent with Patient Total time spent providing and/or coordinating discharge services: Less than 30 minutes - Discharge Medications Prescriptions: Omeprazole [PriLOSEC] 40 mg PO BID #60 capsule. Sucralfate [Carafate] 1 gm PO QIDAC #90 tablet Home Medications: Lisinopril [Zestril] 10 mg PO DAILY 06/10/16 [History] Potassium Chloride [K-Tab ER] 20 meq PO DAILY 03/06/17 [History] Furosemide [Lasix] 20 mg PO BID #30 tablet 06/14/16 [Rx] Atorvastatin Calcium [Lipitor] 20 mg PO HS 05/29/17 [History] Donepezil [Aricept] 10 mg PO HS 05/29/17 [History] Metoprolol XL (24 HR) Succ [Toprol Xl] 25 mg PO BID 05/29/17 [History] Memantine HCl 5 mg PO BID 07/16/17 [History] Omeprazole [PriLOSEC] 40 mg PO BID #60 capsule. 07/21/17 [Rx] Sucralfate [Carafate] 1 gm PO QIDAC #90 tablet 07/21/17 [Rx] Allergies/Adverse Reactions: 3 Allergy/AdvReac Type Severity Reaction Status Date / Time No Known Allergies Allergy Verified 07/16/17 10:02 Date of admission: 07/16/17 10:44 Primary care physician: Osito Castillo Jr, MD Consults: 07/16/17 13:17 Consult to Gastroenterology [CONS] Routine Consulting Provider: Gastroenterology Maia Reason for Consult: GI bleed. Contacted by ED staff Call Completed: Yes 07/20/17 14:09 Consult to Video Game Animator [CONS] Routine Reason for SW Consult: D/C PLANNING. Patient is from home with spouse. Hx dementia. 07/20/17 14:15 Consult to Occupational Therapy [CONS] Routine Comment: Evaluate, develop and implement POC Reason for Consult: EVAL AND TREAT Does patient have active BEDREST order?: No Is patient medically & hemodynamically stable?: Yes Patient assessed for mobility or mobilized this visit?: No Consult to Physical Therapy [CONS] Routine Comment: Evaluate, develop and implement POC Reason for Consult: EVAL AND TREAT. Does patient have active BEDREST order?: No Is patient medically & hemodynamically stable?: Yes Patient assessed for mobility or mobilized this visit?: No - Constitutional Vitals: Temp Pulse Resp BP Pulse Ox 98.0 F 81 24 156/82 100 07/21/17 07:00 07/21/17 08:47 07/21/17 07:00 07/21/17 07:00 07/21/17 07:00 General appearance: Present: no acute distress - Respiratory Respiratory exam: Present: CTAB. Absent: accessory muscle use, rales, rhonchi, wheezes - Cardiovascular Cardiovascular exam: Present: RRR, +S1, +S2. Absent: diastolic murmur, gallop, rubs, systolic murmur - Patient Status Disposition: Home, Self-Care Condition: Serious - Discharge Instructions Follow Up With: Osito Castillo Jr, MD [Primary Care Provider] - 07/28/17 11:00 am () Ankita Blum MD [Partnered Physician] - (SENT WEB REQUEST ON 07/17/17 @8:31) Forms: ED Satisfaction Letter
--- NOTE | 2017-07-21 14:58 | Physician Discharge Referral ---
ExtendedCare Referral Info Institutional Level of Care: Skilled - Diagnosis (1) History of duodenal ulcer Priority: Primary Status: Acute (2) Anemia Priority: Primary Status: Acute (3) Atrial fibrillation Priority: Primary Status: Chronic - Transfer Medications Prescriptions: Omeprazole [PriLOSEC] 40 mg PO BID #60 capsule. Sucralfate [Carafate] 1 gm PO QIDAC #90 tablet Home Medications: Lisinopril [Zestril] 10 mg PO DAILY 06/10/16 [History] Potassium Chloride [K-Tab ER] 20 meq PO DAILY 06/10/16 [History] Furosemide [Lasix] 20 mg PO BID #30 tablet 06/14/16 [Rx] Atorvastatin Calcium [Lipitor] 20 mg PO HS 05/29/17 [History] Donepezil [Aricept] 10 mg PO HS 05/29/17 [History] Metoprolol XL (24 HR) Succ [Toprol Xl] 25 mg PO BID 05/29/17 [History] Memantine HCl 5 mg PO BID 07/16/17 [History] Omeprazole [PriLOSEC] 40 mg PO BID #60 capsule. 07/21/17 [Rx] Sucralfate [Carafate] 1 gm PO QIDAC #90 tablet 07/21/17 [Rx] Allergies/Adverse Reactions: 3 Allergy/AdvReac Type Severity Reaction Status Date / Time No Known Allergies Allergy Verified 07/16/17 10:02 - Respiratory Orders Smoking Cessation: Smoking cessation has been advised. For more information, call the [place] Tobacco Quit Line at 7-489-CSNZ-NOW. CERTIFICATION: I certify that the transfer of the above named patient to an Extended Care Facility is necessary for the continuing treatment of the diagnosis listed. The above information is true and accurate reflection of patient's current condition. Confidential - Redisclosure prohibited without a patient's written consent.
[2017-07-21] MEDS: *HR* HYDROcodone/Acet 5/325 mg TABLET PO PRN (20:48)
[2017-07-21] MEDS: Melatonin 3 MG TABLET PO SCH (20:49)
[2017-07-22] MEDS: *HR* HYDROcodone/Acet 5/325 mg TABLET PO PRN (02:31)
[2017-07-22] MEDS: Sucralfate 1 GM TABLET PO SCH ×2 (06:43→11:51)
[2017-07-22] MEDS: Metoprolol XL (24 HR) Succ 25 MG TAB.ER.24H PO SCH (08:00)
[2017-07-22] MEDS: Furosemide 20 MG TABLET PO SCH (08:00)
[2017-07-22 11:32] VITALS: BP 142/71
--- NOTE | 2017-07-22 15:38 | Internal Med Progress Note ---
Date of Encounter: 07/22/17 Time of Encounter: 10:10 - Assessment and plan (1) Upper GI bleed Status: Acute Assessment and plan: Patient was admitted with melena/upper GI bleed and acute blood loss anemia. GI was consulted, patient received EGD, which showed large nonbleeding duodenal ulcer, has been started on twice-daily PPI and Carafate. Hemoglobin is currently stable, patient has been medically stable for discharge. Will be transferred to rehabilitation facility today. (2) Anemia Status: Acute Qualifiers: Anemia type: unspecified type Qualified Code(s): D64.9 - Anemia, unspecified (3) Atrial fibrillation Status: Chronic Assessment and plan: Rate controlled. Continue beta scottie. Not on anti-coagulation due to h/o- GI bleed. Qualifiers: Atrial fibrillation type: persistent Qualified Code(s): I48.1 - Persistent atrial fibrillation (4) History of duodenal ulcer Status: Acute - Time Spent With Patient Total time spent is greater than 50% in coordination of care (as documented) at patient's floor/unit and/or counseling patient: - Subjective Interval history: Denies nausea, vomiting, abdominal pain. No further episodes of GI bleed. Awaiting rehabilitation placement. - Constitutional Vitals: Temp Pulse Resp BP Pulse Ox 98.2 F 96 20 142/71 92 07/22/17 11:25 07/22/17 11:55 07/22/17 11:25 07/22/17 11:25 07/22/17 11:25 General appearance: Present: A&O X 3, answers questions appropriately - Respiratory Respiratory exam: Present: CTAB. Absent: accessory muscle use, rales, rhonchi, wheezes - Cardiovascular Cardiovascular exam: Present: irregular rhythm, +S1, +S2. Absent: diastolic murmur, gallop, rubs, systolic murmur - GI/Abdominal GI/Abdominal exam: Present: normal bowel sounds, soft, no peritoneal signs. Absent: distended, tenderness Internal Medicine: Result - Labs CBC & Chem 7: 07/20/17 03:33 07/20/17 03:33 - ABG Interpretation ABG results: PT/INR, D-dimer PT 13.5 Seconds (9.4-12.1) H 07/17/17 03:03 D-Dimer 1652 ng/mLFEU (0-500) H 07/21/17 05:08 Consult Discharge Plan - Plan Instructions: Atrial Fibrillation (DC), Anemia (GEN) Referrals: Osito Castillo Jr, MD [Primary Care Provider] - (PATIENT IS GOING TO [facility] NO PCP APPOINTMENT NEEDED) Ankita Blum MD [Partnered Physician] - (SENT WEB REQUEST ON 07/17/17 @8:31) Prescriptions: Omeprazole [PriLOSEC] 40 mg PO BID #60 capsule. Sucralfate [Carafate] 1 gm PO QIDAC #90 tablet
== END 2017-07-22 14:10 | DRG 378 ==
LOC: EMEROO 08:49 → 2SOUTHHOLD 10:44 → SUATTDRO 10:44 → 2SOUTHHOLD 10:52 → 2NNU 17:51
PROVIDERS: ADMIT Internal Medicine Pulmonary Disease; ATTEND Internal Medicine

== ENCOUNTER 2019-02-07 15:13 | Inpatient (IN) ==
[2019-02-07] MEDS ORDERED: Ipratropium/Albuterol Neb 3 ML IH ONE (15:19)
[2019-02-07] MEDS ORDERED: methylPREDNISolone 125 MG/2 ML VIAL IVP ONE (15:19)
[2019-02-07 15:51] LABS: Basophils % 0.2 %; Hematocrit 29.4 % (37.5-50.1); Immature Granulocytes % 0.3 % (0-4); Lymphocytes # 0.2 K/mcL (0.6-4.6); Lymphocytes % 2.7 %; Mean Corpuscular Hemoglobin 31.9 pg (28.0-33.3); Mean Corpuscular Volume 93.9 fL (83.0-100.0); Mean Platelet Volume 10.3 fL (9.4-12.4); Monocytes # 0.5 K/mcL (0.0-1.3); Monocytes % 8.2 %; Platelet Count 114 K/mcL (140-400); Red Blood Count 3.13 M/mcL (4.19-5.50); Segmented Neutrophils % 88.6 %; White Blood Count 6.6 K/mcL (4.3-11.1)
[2019-02-07 15:52] LABS: Neutrophils # 5.9 K/mcL (1.6-8.9)
[2019-02-07 16:11] LABS: Calcium 7.9 mg/dL (8.6-10.3); Potassium 4.4 mEq/L (3.5-5.1)
[2019-02-07 16:16] LABS: Troponin I 0.07 ng/mL (< 0.04)
[2019-02-07] MEDS ORDERED: *HR* Heparin 5,000 UNIT/ML VIAL IVP ONE (16:50)
[2019-02-07] MEDS ORDERED: *HR* Heparin 5,000 UNIT/ML VIAL IVP PRN ×2 (16:50)
[2019-02-07] MEDS ORDERED: Aspirin 81 MG TAB.CHEW PO STA (16:51)
[2019-02-07] MEDS ORDERED: Heparin 25,000 UNIT/250 ML D5W 25,000 UNIT/250 ML IV.SOLN IVC SCH (17:00)
[2019-02-07] MEDS: 0.9 % Sodium Chloride 1,000 ML IVC SCH (17:26)
[2019-02-07 17:45] LABS: INR 1.4; Prothrombin Time 15.5 Seconds (9.4-12.1)
[2019-02-07] MEDS ORDERED: Azithromycin 500 MG in 0.9 % Sodium Chloride 250 ML IVPB ONE (18:26)
[2019-02-07] MEDS ORDERED: cefTRIAXone 2,000 MG in Water for inj. (sterile) 20 ML IVP ONE (18:26)
[2019-02-07 19:47] LABS: Bilirubin,Urine Negative (Negative); Blood,Urine Trace (Negative); Clarity,Urine Cloudy (Clear); Color,Urine Yellow (Yellow); Glucose,Urine (UA) Normal (Normal); Ketones,Urine Negative (Negative); Leukocyte Esterase,Urine Negative (Negative); Nitrite,Urine Negative (Negative); PH,Urine 5.5 pH Units (5.0-8.0); Protein,Urine 30 mg/dL (Neg-Trace); Specific Gravity,Urine 1.015 (1.010-1.025); Urobilinogen,Urine Normal (Normal)
[2019-02-07 19:49] LABS: Bacteria,Urine None Seen per hpf (None-Few); Hyaline Casts,Urine None Seen per lpf (None-Few); Squamous Epithelial Cell,Urine Many per lpf (None-Few); WBC,Urine 0-3 per hpf (0-3)
[2019-02-07 19:58] LABS: RBC,Urine 0-3 per hpf (0-3)
[2019-02-07] MEDS ORDERED: Naloxone 0.4 MG/ML INJ IVP PRN (20:24)
[2019-02-07] MEDS ORDERED: 0.9 % Sodium Chloride 500 ML IV ONE ×2 (20:49→22:35)
[2019-02-07] MEDS ORDERED: Ipratropium/Albuterol Neb 3 ML IH PRN (20:50)
[2019-02-08 01:38] LABS: Hematocrit 27.4 % (37.5-50.1); Immature Granulocytes % 0.3 % (0-4); Lymphocytes # 0.1 K/mcL (0.6-4.6); Lymphocytes % 3.6 %; Mean Corpuscular HGB Conc 32.8 g/dL (31.6-35.5); Mean Corpuscular Hemoglobin 31.4 pg (28.0-33.3); Mean Corpuscular Volume 95.5 fL (83.0-100.0); Mean Platelet Volume 10.4 fL (9.4-12.4); Monocytes # 0.1 K/mcL (0.0-1.3); Neutrophils # 3.4 K/mcL (1.6-8.9); Platelet Count 100 K/mcL (140-400); Red Blood Count 2.87 M/mcL (4.19-5.50); Red Cell Distribution Width 14.1 % (11.5-14.5); Segmented Neutrophils % 93.1 %; White Blood Count 3.6 K/mcL (4.3-11.1)
[2019-02-08 01:58] LABS: Magnesium 0.8 mg/dL (1.6-2.6); Potassium 4.6 mEq/L (3.5-5.1)
[2019-02-08 02:32] LABS: Platelet Estimate Slight Decrease (Normal)
[2019-02-08] MEDS: 0.9 % Sodium Chloride 1,000 ML IVC SCH ×2 (02:39→10:49)
[2019-02-08] MEDS: Metoprolol XL (24 HR) Succ 50 MG TAB.ER.24H PO SCH ×2 (08:50→14:37)
[2019-02-08] MEDS: Furosemide 20 MG TABLET PO SCH (10:49)
[2019-02-08] MEDS: Sucralfate 1 GM TABLET PO SCH (19:47)
[2019-02-09] MEDS: Melatonin 3 MG TABLET PO PRN ×2 (00:17→20:40)
[2019-02-09 04:34] LABS: Hematocrit 29.1 % (37.5-50.1); Hemoglobin 9.5 g/dL (12.9-16.9); Immature Granulocytes % 0.3 % (0-4); Lymphocytes # 0.1 K/mcL (0.6-4.6); Lymphocytes % 1.9 %; Mean Corpuscular HGB Conc 32.6 g/dL (31.6-35.5); Mean Corpuscular Hemoglobin 31.3 pg (28.0-33.3); Mean Corpuscular Volume 95.7 fL (83.0-100.0); Mean Platelet Volume 10.1 fL (9.4-12.4); Monocytes # 0.4 K/mcL (0.0-1.3); Monocytes % 6.3 %; Neutrophils # 5.9 K/mcL (1.6-8.9); Platelet Count 139 K/mcL (140-400); Red Blood Count 3.04 M/mcL (4.19-5.50); Red Cell Distribution Width 14.1 % (11.5-14.5); Segmented Neutrophils % 91.5 %
[2019-02-09 04:38] LABS: White Blood Count 6.4 K/mcL (4.3-11.1)
[2019-02-09 04:52] LABS: Calcium 7.5 mg/dL (8.6-10.3); Potassium 4.5 mEq/L (3.5-5.1)
[2019-02-09 05:08] LABS: Platelet Estimate Slight Decrease (Normal)
[2019-02-09] MEDS: *HR* Heparin 5,000 UNIT/ML VIAL SQ SCH ×3 (06:30→20:34)
[2019-02-09] MEDS: Sucralfate 1 GM TABLET PO SCH ×4 (10:18→20:34)
[2019-02-09] MEDS: Isosorbide MONOnitrate (24 HR) 30 MG TAB.ER.24H PO SCH (10:19)
[2019-02-09] MEDS: Metoprolol XL (24 HR) Succ 50 MG TAB.ER.24H PO SCH (10:19)
[2019-02-09] MEDS: Furosemide 20 MG TABLET PO SCH (10:19)
[2019-02-09] MEDS: Benzonatate 100 MG CAPSULE PO PRN ×2 (16:09→20:40)
[2019-02-10 03:41] LABS: Hematocrit 26.7 % (37.5-50.1); Immature Granulocytes % 0.6 % (0-4); Lymphocytes # 0.2 K/mcL (0.6-4.6); Lymphocytes % 3.2 %; Mean Corpuscular HGB Conc 33.7 g/dL (31.6-35.5); Monocytes # 0.4 K/mcL (0.0-1.3); Monocytes % 7.2 %; Neutrophils # 4.7 K/mcL (1.6-8.9); Platelet Count 128 K/mcL (140-400); Red Blood Count 2.81 M/mcL (4.19-5.50); Red Cell Distribution Width 14.1 % (11.5-14.5); White Blood Count 5.3 K/mcL (4.3-11.1)
[2019-02-10 04:01] LABS: Calcium 7.4 mg/dL (8.6-10.3); Potassium 4.3 mEq/L (3.5-5.1)
[2019-02-10 04:13] LABS: Platelet Estimate Slight Decrease (Normal)
[2019-02-10] MEDS: *HR* Heparin 5,000 UNIT/ML VIAL SQ SCH (06:05)
[2019-02-10] MEDS: Metoprolol XL (24 HR) Succ 50 MG TAB.ER.24H PO SCH (08:28)
[2019-02-10] MEDS: Sucralfate 1 GM TABLET PO SCH ×2 (08:28→11:16)
[2019-02-10] MEDS: Furosemide 20 MG TABLET PO SCH (08:29)
[2019-02-10] MEDS: Isosorbide MONOnitrate (24 HR) 30 MG TAB.ER.24H PO SCH (08:29)
[2019-02-10] MEDS: Benzonatate 100 MG CAPSULE PO PRN (08:59)
[2019-02-10 10:49] VITALS: BP 147/75
== END 2019-02-10 13:02 | disposition home health service (06) | DRG 191 ==
LOC: 2ANU 15:13 → EMEROOARM 15:13 → 2ANU 20:00 → SUATTDRO 02-09 09:31
PROVIDERS: ADMIT Family Medicine; ATTEND Family Medicine

== ENCOUNTER 2019-02-22 19:41 | Observation (INO) ==
[2019-02-22] MEDS ORDERED: Morphine Sulfate 2 MG/ML SYRINGE IVP ONE (20:01)
[2019-02-22 20:26] LABS: Eosinophils % 0.4 %; Hematocrit 30.8 % (37.5-50.1); Hemoglobin 10.1 g/dL (12.9-16.9); Immature Granulocytes % 0.8 % (0-4); Lymphocytes # 0.5 K/mcL (0.6-4.6); Lymphocytes % 6.1 %; Mean Corpuscular HGB Conc 32.8 g/dL (31.6-35.5); Mean Corpuscular Hemoglobin 31.8 pg (28.0-33.3); Mean Corpuscular Volume 96.9 fL (83.0-100.0); Monocytes # 0.5 K/mcL (0.0-1.3); Monocytes % 5.6 %; Platelet Count 129 K/mcL (140-400); Red Blood Count 3.18 M/mcL (4.19-5.50); Red Cell Distribution Width 13.7 % (11.5-14.5); Segmented Neutrophils % 87.1 %
[2019-02-22 20:51] LABS: Alanine Aminotransferase 33 Units/L (7-52); Albumin/Globulin Ratio 1.7 (1.1-2.2); Alkaline Phosphatase 56 Units/L (34-104); Aspartate Amino Transferase 32 Units/L (13-39); BUN/Creatinine Ratio 13 (6-26); Blood Urea Nitrogen 15 mg/dL (8-23); Calcium 8.3 mg/dL (8.6-10.3); Carbon Dioxide 30 mEq/L (23-29); Chloride 95 mEq/L (98-107); Globulin 2.3 g/dL (2.4-3.5); Glucose 100 mg/dL (70-105); Lipase 38 Units/L (11-82); Osmolality,Calculated 279 (280-300); Potassium 4.2 mEq/L (3.5-5.1); Sodium 134 mEq/L (136-145); Total Protein 6.3 g/dL (6.4-8.9); Troponin I 0.04 ng/mL (< 0.04); eGFR For African Americans > 60 (> 60); eGFR For Non-African Americans > 60 (> 60)
[2019-02-22] MEDS ORDERED: *HR* FentaNYL (PF) 100 MCG/2 ML VIAL IVP ONE (21:23)
[2019-02-22] MEDS ORDERED: Pantoprazole 40 MG VIAL IVP ONE (22:20)
[2019-02-22] MEDS ORDERED: GI Cocktail 40 ML EACH PO ONE (22:57)
[2019-02-23] MEDS ORDERED: Naloxone 0.4 MG/ML INJ IVP PRN (02:04)
[2019-02-23] MEDS ORDERED: 0.9 % Sodium Chloride 1,000 ML IVC SCH (02:15)
[2019-02-23 02:30] LABS: Eosinophils % 0.1 %; Hematocrit 29.4 % (37.5-50.1); Hemoglobin 9.8 g/dL (12.9-16.9); Immature Granulocytes % 0.7 % (0-4); Immature Reticulocyte % 4.6 % (11.0-38.0); Lymphocytes # 0.4 K/mcL (0.6-4.6); Lymphocytes % 5.4 %; Mean Corpuscular HGB Conc 33.3 g/dL (31.6-35.5); Mean Platelet Volume 9.7 fL (9.4-12.4); Monocytes # 0.4 K/mcL (0.0-1.3); Monocytes % 5.1 %; Neutrophils # 6.1 K/mcL (1.6-8.9); Platelet Count 123 K/mcL (140-400); Red Blood Count 3.16 M/mcL (4.19-5.50); Red Cell Distribution Width 13.7 % (11.5-14.5); Retculocyte # 0.03 M/mcL (0.05-0.10); Reticulocyte % 1.2 % (1.6-2.8); Segmented Neutrophils % 88.7 %; White Blood Count 6.9 K/mcL (4.3-11.1)
[2019-02-23 02:52] LABS: Alanine Aminotransferase 27 Units/L (7-52); Albumin 3.7 g/dL (3.5-5.7); Albumin/Globulin Ratio 1.8 (1.1-2.2); Alkaline Phosphatase 53 Units/L (34-104); Aspartate Amino Transferase 27 Units/L (13-39); BUN/Creatinine Ratio 12 (6-26); Blood Urea Nitrogen 14 mg/dL (8-23); Carbon Dioxide 30 mEq/L (23-29); Chloride 96 mEq/L (98-107); Chol/HDL Ratio 2.2 (0-4.9); Cholesterol 98 mg/dL (< 200); Globulin 2.1 g/dL (2.4-3.5); Glucose 112 mg/dL (70-105); HDL Cholesterol 44 mg/dL (40-59); LDL Cholesterol,Calculated 39 mg/dL (0-99); Osmolality,Calculated 281 (280-300); Phosphorous 3.9 mg/dL (2.7-4.5); Potassium 4.6 mEq/L (3.5-5.1); Sodium 135 mEq/L (136-145); Total Protein 5.8 g/dL (6.4-8.9); Triglycerides 75 mg/dL (< 150); eGFR For African Americans > 60 (> 60); eGFR For Non-African Americans > 60 (> 60)
[2019-02-23 03:06] LABS: Thyroid Stimulating Hormone 2.804 mcIU/mL (0.340-5.600)
[2019-02-23 03:16] LABS: Folate 19.2 ng/mL (3.0-16.0)
[2019-02-23 06:37] LABS: Bilirubin,Urine Negative (Negative); Blood,Urine Negative (Negative); Clarity,Urine Clear (Clear); Color,Urine Yellow (Yellow); Glucose,Urine (UA) Normal (Normal); Ketones,Urine Negative (Negative); Leukocyte Esterase,Urine Negative (Negative); Nitrite,Urine Negative (Negative); PH,Urine 7.5 pH Units (5.0-8.0); Protein,Urine 100 mg/dL (Neg-Trace); Urobilinogen,Urine Normal (Normal)
[2019-02-23 06:39] LABS: Bacteria,Urine None Seen per hpf (None-Few); Hyaline Casts,Urine None Seen per lpf (None-Few); RBC,Urine 0-3 per hpf (0-3); Squamous Epithelial Cell,Urine Moderate per lpf (None-Few); WBC,Urine 0-3 per hpf (0-3)
[2019-02-23 06:58] LABS: INR 1.2; Prothrombin Time 13.4 Seconds (9.4-12.1)
[2019-02-23] MEDS ORDERED: Melatonin 3 MG TABLET PO PRN (07:37)
[2019-02-23 08:41] LABS: Estimated Average Glucose 137 mg/dl
[2019-02-23] MEDS ORDERED: Isosorbide MONOnitrate (24 HR) 30 MG TAB.ER.24H PO SCH (09:00)
[2019-02-23] MEDS ORDERED: Metoprolol XL (24 HR) Succ 50 MG TAB.ER.24H PO SCH (09:00)
[2019-02-23] MEDS ORDERED: Sucralfate 1 GM TABLET PO SCH (11:30)
[2019-02-23] MEDS ORDERED: *HR* Propofol 200 MG/20 ML VIAL IVP ONE (13:11)
[2019-02-23] MEDS ORDERED: Lidocaine -MPF 2% 2 ML VIAL ONE (13:11)
[2019-02-23] MEDS ORDERED: Furosemide 20 MG TABLET PO SCH (13:19)
[2019-02-23] MEDS ORDERED: 0.9 % Sodium Chloride 500 ML IVC SCH (13:30)
[2019-02-23 14:30] VITALS: BP 123/64
[2019-02-23] MEDS ORDERED: *HR* Rivaroxaban 10 MG TABLET PO SCH (17:00)
[2019-02-24] MEDS ORDERED: Ascorbic Acid 500 MG TABLET PO SCH (06:30)
== END 2019-02-23 16:06 | disposition home or self-care (01) ==
LOC: EMEROOARM 19:41 → 2ANU 19:41
PROVIDERS: ADMIT Family Medicine; ATTEND Family Medicine